=== PATIENT | male | born 1955 | race Caucasian/White ===

== ENCOUNTER 2017-10-29 09:02 | Inpatient (IN) | payer OTHER ==
[2017-10-29] MEDS: HYDROmorphONE 1 MG/ML SYG IV (09:14)
[2017-10-29] MEDS: PIPER-TAZO 3.375 GM IV (PMX) 50 ML IVPB (09:14)
[2017-10-29] MEDS: SOD CHLORIDE 0.9% 1,000 ML IV ×6 (09:14→19:38)
[2017-10-29] MEDS: VANCOMYCIN 1 GM (PMX) 250 ML IVPB (09:14)
[2017-10-29 10:08] LABS: ABNORMAL IP MESSAGE 1; HEMATOCRIT 43.9 % (42.0-52.0); HEMOGLOBIN 15.2 g/dl (14.0-18.0); MEAN CORPUSCULAR HEMOGLOBIN 30.6 pg (29.0-33.0); MEAN CORPUSCULAR HGB CONC 34.6 g/dl (32.0-37.0); MEAN CORPUSCULAR VOLUME 88.3 fl (82.0-101.0); MEAN PLATELET VOLUME 9.4 fl (7.4-10.4); PLATELET COUNT 274 10^3/UL (140-415); POSITIVE DIFF @See below; RED BLOOD COUNT 4.97 10^6/ul (4.70-6.10); RED CELL DISTRIBUTION WIDTH 12.8 % (11.5-14.5)
[2017-10-29] MEDS: HYDROmorphONE 1 MG/ML SYG IM (10:09)
[2017-10-29 10:11] LABS: ADD MAN DIFF? YES
[2017-10-29 10:25] LABS: INR 1.07; PROTIME 13.9 Sec (12.2-14.2); PT RATIO 1.1
[2017-10-29 10:26] LABS: ALANINE AMINOTRANSFERASE 37 IU/L (13-69); ALBUMIN 3.3 g/dl (3.3-4.9); ALBUMIN/GLOBULIN RATIO 0.89; ALKALINE PHOSPHATASE 129 IU/L (42-121); ANION GAP 18 (8-16); ASPARTATE AMINO TRANSFERASE 23 IU/L (15-46); BILIRUBIN,INDIRECT 0.1 mg/dl (0-1.1); BILIRUBIN,TOTAL 0.1 mg/dl (0.2-1.3); BLOOD UREA NITROGEN 40 mg/dl (7-20); CALCIUM 8.8 mg/dl (8.4-10.2); CARBON DIOXIDE 27 mmol/L (21-31); CHLORIDE 87 mmol/L (97-110); CREATININE 2.29 mg/dl (0.61-1.24); GLUCOSE 172 mg/dl (70-220); LIPASE 38 U/L (23-300); POTASSIUM 3.2 mmol/L (3.5-5.1); SODIUM 129 mmol/L (135-144)
[2017-10-29] MEDS ORDERED: ACETAMINOPHEN 325 MG TAB PO (10:30)
[2017-10-29] MEDS ORDERED: ONDANSETRON 4 MG INJ IV (10:30)
[2017-10-29 10:38] LABS: TROPONIN-I < 0.012 ng/ml (0.00-0.12)
[2017-10-29 10:46] LABS: LACTIC ACID 2.6 mmol/L (0.5-2.0)
[2017-10-29 11:10] LABS: BAND NEUTROPHILS % (M) 10 % (0-4); BURR CELLS 1+ (0-0); GIANT THROMBO% (M) 1 % (0-0); LYMPHOCYTES #M 0.3 10^3/ul (0.8-2.9); LYMPHOCYTES % (M) 1 % (15-51); MONOCYTE #M 1.5 10^3/ul (0.3-0.9); MONOCYTES % (M) 5 % (0-11); PLATELET ESTIMATE NORMAL; POIKILOCYTOSIS 2+ (0-0); POLYCHROMASIA 1+ (0-0); SEG NEUT #M 26.1 10^3/ul (1.7-7.5); SEGMENTED NEUTROPHILS (M) % 84 % (39-77)
[2017-10-29] MEDS: CLINDAMYCIN 900 MG/D5W (PMX) 50 ML IVPB (12:20)
[2017-10-29] MEDS ORDERED: ACETAMINOPHEN 650 MG SUPP PR (12:30)
[2017-10-29] MEDS ORDERED: DOCUSATE SODIUM 100 MG CAP PO (12:30)
[2017-10-29] MEDS ORDERED: BISACODYL (EC) 5 MG TAB PO (12:30)
[2017-10-29] MEDS ORDERED: VANCOMYCIN IV PER PHARMACY XX (12:30)
[2017-10-29] MEDS ORDERED: NACL 0.9% 3 ML SYG IV (12:30)
[2017-10-29] MEDS ORDERED: MAGNESIUM HYDROXIDE 30ML CUP PO (12:30)
[2017-10-29 12:58] LABS: LACTIC ACID 2.7 mmol/L (0.5-2.0)
[2017-10-29 13:21] LABS: HEMOGLOBIN A1C 5.6 % (0-5.9)
[2017-10-29] MEDS: ONDANSETRON 4 MG INJ IV (13:33)
[2017-10-29] MEDS: POTASSIUM CHLORIDE (SR) 20 MEQ TAB PO (13:34)
[2017-10-29] MEDS: VANCOMYCIN 2 GM in SOD CHLORIDE 0.9% 500 ML IVPB (13:34)
[2017-10-29] MEDS: morphine 2 MG INJ IV ×2 (13:46→23:01)
[2017-10-29] MEDS: LORAZEPAM 2 MG INJ IV (14:47)
[2017-10-29 15:12] LABS: LACTIC ACID 2.3 mmol/L (0.5-2.0)
[2017-10-29] MEDS: PIPER-TAZO 3.375 GM IV (PMX) 50 ML IV ×2 (18:20→23:37)
[2017-10-30 01:32] LABS: ADD UMIC YES; UR ASCORBIC ACID NEGATIVE (NEGATIVE); UR BILIRUBIN (Dip) NEGATIVE (NEGATIVE); UR BLOOD (Dip) 1+ mg/dL (NEGATIVE); UR CLARITY CLEAR (CLEAR); UR COLOR YELLOW (YELLOW); UR GLUCOSE (Dip) NEGATIVE (NEGATIVE); UR KETONES (Dip) NEGATIVE (NEGATIVE); UR LEUKOCYTE ESTERASE (Dip) NEGATIVE Leu/ul (NEGATIVE); UR MUCUS FEW /HPF (NONE SEEN); UR NITRITE (Dip) NEGATIVE (NEGATIVE); UR RBC 6 /HPF (0-5); UR SPECIFIC GRAVITY (Dip) 1.009 (1.003-1.030); UR TOTAL PROTEIN (Dip) 1+ mg/dl (NEGATIVE); UR UROBILINOGEN (Dip) NEGATIVE (NEGATIVE); UR WBC 2 /HPF (0-5)
[2017-10-30 03:00] LABS: SODIUM,URINE RANDOM 40 mmol/L (30-90)
[2017-10-30 03:02] LABS: CREATININE,URINE RANDOM 33.44 mg/dl (20-370); PROTEIN/CREAT RATIO 1.85 RATIO
[2017-10-30 03:04] LABS: CREATININE,URINE RANDOM 33.12 mg/dl (20-370)
[2017-10-30] MEDS: SOD CHLORIDE 0.9% 1,000 ML IV ×3 (04:45→16:23)
[2017-10-30] MEDS: PIPER-TAZO 3.375 GM IV (PMX) 50 ML IV ×4 (05:52→23:20)
[2017-10-30] MEDS: PANTOPRAZOLE 40 MG INJ IV (05:52)
[2017-10-30] MEDS: morphine 2 MG INJ IV (05:53)
[2017-10-30 07:33] LABS: ABNORMAL IP MESSAGE 1; HEMATOCRIT 38.6 % (42.0-52.0); HEMOGLOBIN 13.5 g/dl (14.0-18.0); MEAN CORPUSCULAR HEMOGLOBIN 30.9 pg (29.0-33.0); MEAN CORPUSCULAR VOLUME 88.3 fl (82.0-101.0); MEAN PLATELET VOLUME 9.4 fl (7.4-10.4); PLATELET COUNT 261 10^3/UL (140-415); POSITIVE DIFF @See below; RED BLOOD COUNT 4.37 10^6/ul (4.70-6.10); RED CELL DISTRIBUTION WIDTH 12.8 % (11.5-14.5)
[2017-10-30 07:33] LABS: WHITE BLOOD COUNT 33.2 10^3/ul (4.8-10.8)
[2017-10-30 07:42] LABS: ADD MAN DIFF? YES
[2017-10-30 08:05] LABS: ALANINE AMINOTRANSFERASE 33 IU/L (13-69); ALBUMIN 2.5 g/dl (3.3-4.9); ALBUMIN/GLOBULIN RATIO 0.69; ALKALINE PHOSPHATASE 139 IU/L (42-121); ANION GAP 11 (8-16); ASPARTATE AMINO TRANSFERASE 20 IU/L (15-46); BILIRUBIN,INDIRECT 0.2 mg/dl (0-1.1); BILIRUBIN,TOTAL 0.2 mg/dl (0.2-1.3); BLOOD UREA NITROGEN 23 mg/dl (7-20); CALCIUM 8.4 mg/dl (8.4-10.2); CARBON DIOXIDE 30 mmol/L (21-31); CHLORIDE 94 mmol/L (97-110); GLUCOSE 91 mg/dl (70-220); POTASSIUM 3.2 mmol/L (3.5-5.1); SODIUM 132 mmol/L (135-144); TOTAL PROTEIN 6.1 g/dl (6.1-8.1)
[2017-10-30] MEDS: ENOXAPARIN 40 MG/0.4 ML SYG SC (08:57)
[2017-10-30 09:24] LABS: ANISOCYTOSIS 1+ (0-0); BAND NEUTROPHILS #M 11.6 10^3/ul (0.0-0.6); BAND NEUTROPHILS % (M) 35 % (0-4); BURR CELLS 1+ (0-0); HYPOCHROMASIA 1+ (0-0); LYMPHOCYTES #M 0.3 10^3/ul (0.8-2.9); LYMPHOCYTES % (M) 1 % (15-51); METAMYELOCYTES #M 0.6 10^3/ul (0.0-0.0); METAMYELOCYTES %M 2 % (0-0); MONOCYTE #M 1.6 10^3/ul (0.3-0.9); MONOCYTES % (M) 5 % (0-11); MYELOCYTES #M 0.3 10^3/ul (0.0-0.0); MYELOCYTES % (M) 1 % (0-0); PLATELET ESTIMATE NORMAL; POIKILOCYTOSIS 1+ (0-0); POLYCHROMASIA 1+ (0-0); SEG NEUT #M 22.8 10^3/ul (1.7-7.5); SEGMENTED NEUTROPHILS (M) % 57 % (39-77); SMUDGE%M 8 % (0-0)
[2017-10-30] MEDS: POTASSIUM CHLORIDE (SR) 20 MEQ TAB PO (11:33)
[2017-10-30] MEDS: VANCOMYCIN 750 MG in DEXTROSE 5% 150 ML IVPB (13:03)
[2017-10-30] MEDS: NICOTINE (21 MG/24 HR) PATCH TRANSDERM (13:45)
[2017-10-30] MEDS: CLINDAMYCIN 900 MG/D5W (PMX) 50 ML IVPB ×2 (16:20→21:21)
[2017-10-30] MEDS ORDERED: POTASSIUM CHLORIDE (SR) 10 MEQ TAB PO (17:00)
[2017-10-30] MEDS ORDERED: VANCOMYCIN 1 GM in NS 250 ML IVPB (21:00)
[2017-10-31] MEDS: VANCOMYCIN 750 MG in DEXTROSE 5% 150 ML IVPB ×2 (00:48→12:56)
[2017-10-31] MEDS: SOD CHLORIDE 0.9% 1,000 ML IV ×3 (04:02→21:21)
[2017-10-31] MEDS: PANTOPRAZOLE (EC) 40 MG TAB PO (05:10)
[2017-10-31] MEDS: PIPER-TAZO 3.375 GM IV (PMX) 50 ML IV ×3 (05:10→18:38)
[2017-10-31] MEDS: CLINDAMYCIN 900 MG/D5W (PMX) 50 ML IVPB ×3 (06:15→21:21)
[2017-10-31 06:34] LABS: ALANINE AMINOTRANSFERASE 32 IU/L (13-69); ALBUMIN 2.3 g/dl (3.3-4.9); ALBUMIN/GLOBULIN RATIO 0.67; ALKALINE PHOSPHATASE 138 IU/L (42-121); ANION GAP 10 (8-16); ASPARTATE AMINO TRANSFERASE 18 IU/L (15-46); BILIRUBIN,INDIRECT 0.1 mg/dl (0-1.1); BILIRUBIN,TOTAL 0.1 mg/dl (0.2-1.3); BLOOD UREA NITROGEN 20 mg/dl (7-20); CALCIUM 8.2 mg/dl (8.4-10.2); CARBON DIOXIDE 30 mmol/L (21-31); CHLORIDE 98 mmol/L (97-110); CREATININE 0.97 mg/dl (0.61-1.24); GLUCOSE 120 mg/dl (70-220); SODIUM 135 mmol/L (135-144); TOTAL PROTEIN 5.7 g/dl (6.1-8.1)
[2017-10-31 06:36] LABS: ABNORMAL IP MESSAGE 1; HEMATOCRIT 35.3 % (42.0-52.0); MEAN CORPUSCULAR VOLUME 88.3 fl (82.0-101.0); MEAN PLATELET VOLUME 9.2 fl (7.4-10.4); PLATELET COUNT 290 10^3/UL (140-415); POSITIVE DIFF @See below; RED CELL DISTRIBUTION WIDTH 13.2 % (11.5-14.5)
[2017-10-31 06:41] LABS: POTASSIUM 2.8 mmol/L (3.5-5.1)
[2017-10-31 06:46] LABS: ADD MAN DIFF? YES
[2017-10-31 07:04] LABS: CREATININE 0.97 mg/dl (0.61-1.24)
[2017-10-31 07:04] LABS: BLOOD UREA NITROGEN 20 mg/dl (7-20)
[2017-10-31] MEDS: POTASSIUM CHLORIDE (SR) 20 MEQ TAB PO (07:08)
[2017-10-31 08:16] LABS: ANISOCYTOSIS 1+ (0-0); BAND NEUTROPHILS #M 5.4 10^3/ul (0.0-0.6); BAND NEUTROPHILS % (M) 15 % (0-4); BURR CELLS 2+ (0-0); GIANT THROMBO% (M) 1 % (0-0); LYMPHOCYTES % (M) 3 % (15-51); MONOCYTE #M 1.4 10^3/ul (0.3-0.9); MONOCYTES % (M) 4 % (0-11); PLATELET ESTIMATE NORMAL; POIKILOCYTOSIS 2+ (0-0); POLYCHROMASIA 1+ (0-0); SEGMENTED NEUTROPHILS (M) % 78 % (39-77); SMUDGE%M 1 % (0-0)
[2017-10-31] MEDS: NICOTINE (21 MG/24 HR) PATCH TRANSDERM (08:50)
[2017-10-31] MEDS: ENOXAPARIN 40 MG/0.4 ML SYG SC (08:52)
[2017-11-01 00:16] LABS: VANCOMYCIN,TROUGH 7.1 ug/ml (10.0-20.0)
[2017-11-01] MEDS: VANCOMYCIN 1.25 GM in SOD CHLORIDE 0.9% 250 ML IVPB ×2 (01:48→13:05)
[2017-11-01] MEDS: SOD CHLORIDE 0.9% 1,000 ML IV ×3 (03:42→20:02)
[2017-11-01] MEDS: PIPER-TAZO 3.375 GM IV (PMX) 50 ML IV ×4 (05:10→17:57)
[2017-11-01] MEDS: PANTOPRAZOLE (EC) 40 MG TAB PO (05:10)
[2017-11-01 06:16] LABS: ABNORMAL IP MESSAGE 1; HEMATOCRIT 36.7 % (42.0-52.0); HEMOGLOBIN 12.6 g/dl (14.0-18.0); MEAN CORPUSCULAR HEMOGLOBIN 29.8 pg (29.0-33.0); MEAN CORPUSCULAR HGB CONC 34.3 g/dl (32.0-37.0); MEAN CORPUSCULAR VOLUME 86.8 fl (82.0-101.0); PLATELET COUNT 337 10^3/UL (140-415); POSITIVE DIFF @See below; RED BLOOD COUNT 4.23 10^6/ul (4.70-6.10); RED CELL DISTRIBUTION WIDTH 13.3 % (11.5-14.5)
[2017-11-01 06:16] LABS: WHITE BLOOD COUNT 37.9 10^3/ul (4.8-10.8)
[2017-11-01] MEDS: CLINDAMYCIN 900 MG/D5W (PMX) 50 ML IVPB ×3 (06:21→22:56)
[2017-11-01 06:27] LABS: ADD MAN DIFF? YES
[2017-11-01 06:50] LABS: ANION GAP 10 (8-16); BLOOD UREA NITROGEN 15 mg/dl (7-20); CALCIUM 7.7 mg/dl (8.4-10.2); CARBON DIOXIDE 28 mmol/L (21-31); CHLORIDE 99 mmol/L (97-110); CREATININE 0.98 mg/dl (0.61-1.24); GLUCOSE 134 mg/dl (70-220); POTASSIUM 3.1 mmol/L (3.5-5.1); SODIUM 134 mmol/L (135-144)
[2017-11-01 07:37] LABS: BAND NEUTROPHILS #M 2.2 10^3/ul (0.0-0.6); BAND NEUTROPHILS % (M) 6 % (0-4); EOSINOPHILS % (M) 1 % (0-7); LYMPHOCYTES #M 2.2 10^3/ul (0.8-2.9); LYMPHOCYTES % (M) 6 % (15-51); METAMYELOCYTES #M 0.7 10^3/ul (0.0-0.0); METAMYELOCYTES %M 2 % (0-0); MONOCYTE #M 0.3 10^3/ul (0.3-0.9); MONOCYTES % (M) 1 % (0-11); MYELOCYTES #M 0.3 10^3/ul (0.0-0.0); MYELOCYTES % (M) 1 % (0-0); PLATELET ESTIMATE NORMAL; POIKILOCYTOSIS 2+ (0-0); POLYCHROMASIA 3+ (0-0); PROMYELOCYTES #M 0.7 10^3/ul (0-0); PROMYELOCYTES % (M) 2 % (0-0); SEG NEUT #M 31.5 10^3/ul (1.7-7.5); SEGMENTED NEUTROPHILS (M) % 81 % (39-77); SMUDGE%M 2 % (0-0)
[2017-11-01] MEDS: NICOTINE (21 MG/24 HR) PATCH TRANSDERM (08:50)
[2017-11-01] MEDS: ENOXAPARIN 40 MG/0.4 ML SYG SC (08:57)
[2017-11-01] MEDS ORDERED: INFLUENZA VIRUS VACCINE 0.5 ML SYG IM* (12:00)
[2017-11-01] MEDS: IBUPROFEN 400 MG TAB PO (14:15)
[2017-11-01] MEDS: POTASSIUM CHLORIDE 250 ML IVPB (15:20)
[2017-11-02] MEDS: PIPER-TAZO 3.375 GM IV (PMX) 50 ML IV ×3 (00:16→11:39)
[2017-11-02] MEDS: VANCOMYCIN 1.25 GM in SOD CHLORIDE 0.9% 250 ML IVPB (01:42)
[2017-11-02] MEDS: SOD CHLORIDE 0.9% 1,000 ML IV ×3 (03:54→21:16)
[2017-11-02] MEDS: PANTOPRAZOLE (EC) 40 MG TAB PO (06:30)
[2017-11-02] MEDS: CLINDAMYCIN 900 MG/D5W (PMX) 50 ML IVPB ×3 (07:29→21:14)
[2017-11-02] MEDS: NICOTINE (21 MG/24 HR) PATCH TRANSDERM (08:24)
[2017-11-02] MEDS: ENOXAPARIN 40 MG/0.4 ML SYG SC (08:26)
[2017-11-02 13:25] LABS: WHITE BLOOD COUNT 37.5 10^3/ul (4.8-10.8)
[2017-11-02 13:25] LABS: ABNORMAL IP MESSAGE 1; HEMATOCRIT 33.8 % (42.0-52.0); HEMOGLOBIN 11.8 g/dl (14.0-18.0); MEAN CORPUSCULAR HEMOGLOBIN 30.3 pg (29.0-33.0); MEAN CORPUSCULAR HGB CONC 34.9 g/dl (32.0-37.0); MEAN CORPUSCULAR VOLUME 86.7 fl (82.0-101.0); MEAN PLATELET VOLUME 8.9 fl (7.4-10.4); PLATELET COUNT 401 10^3/UL (140-415); POSITIVE DIFF @See below; RED CELL DISTRIBUTION WIDTH 13.5 % (11.5-14.5)
[2017-11-02 13:28] LABS: ADD MAN DIFF? YES
[2017-11-02 13:38] LABS: ALANINE AMINOTRANSFERASE 58 IU/L (13-69); ALBUMIN 2.2 g/dl (3.3-4.9); ALBUMIN/GLOBULIN RATIO 0.55; ALKALINE PHOSPHATASE 417 IU/L (42-121); ANION GAP 10 (8-16); ASPARTATE AMINO TRANSFERASE 85 IU/L (15-46); BILIRUBIN,INDIRECT 0.5 mg/dl (0-1.1); BILIRUBIN,TOTAL 1.9 mg/dl (0.2-1.3); BLOOD UREA NITROGEN 14 mg/dl (7-20); CALCIUM 7.5 mg/dl (8.4-10.2); CARBON DIOXIDE 26 mmol/L (21-31); CHLORIDE 99 mmol/L (97-110); CREATININE 0.94 mg/dl (0.61-1.24); GLUCOSE 127 mg/dl (70-220); SODIUM 132 mmol/L (135-144); TOTAL PROTEIN 6.2 g/dl (6.1-8.1)
[2017-11-02 13:42] LABS: VANCOMYCIN,TROUGH 11.5 ug/ml (10.0-20.0)
[2017-11-02 14:04] LABS: ANISOCYTOSIS 1+ (0-0); BAND NEUTROPHILS % (M) 16 % (0-4); BURR CELLS 1+ (0-0); LYMPHOCYTES #M 1.8 10^3/ul (0.8-2.9); LYMPHOCYTES % (M) 5 % (15-51); METAMYELOCYTES #M 1.5 10^3/ul (0.0-0.0); METAMYELOCYTES %M 4 % (0-0); MONOCYTE #M 1.8 10^3/ul (0.3-0.9); MONOCYTES % (M) 5 % (0-11); MYELOCYTES #M 0.7 10^3/ul (0.0-0.0); MYELOCYTES % (M) 2 % (0-0); PLATELET ESTIMATE NORMAL; POIKILOCYTOSIS 1+ (0-0); POLYCHROMASIA 1+ (0-0); SEG NEUT #M 27.8 10^3/ul (1.7-7.5); SEGMENTED NEUTROPHILS (M) % 68 % (39-77); SMUDGE%M 4 % (0-0)
[2017-11-02] MEDS: POTASSIUM CHLORIDE 20 MEQ POWDER FOR ORAL SOLN PO (14:33)
[2017-11-03] MEDS: SOD CHLORIDE 0.9% 1,000 ML IV ×3 (03:26→20:43)
[2017-11-03] MEDS: PANTOPRAZOLE (EC) 40 MG TAB PO (05:28)
[2017-11-03] MEDS: CLINDAMYCIN 900 MG/D5W (PMX) 50 ML IVPB ×3 (05:28→22:00)
[2017-11-03 06:08] LABS: ABNORMAL IP MESSAGE 1; HEMATOCRIT 32.2 % (42.0-52.0); HEMOGLOBIN 11.1 g/dl (14.0-18.0); MEAN CORPUSCULAR HEMOGLOBIN 30.2 pg (29.0-33.0); MEAN CORPUSCULAR HGB CONC 34.5 g/dl (32.0-37.0); MEAN CORPUSCULAR VOLUME 87.5 fl (82.0-101.0); MEAN PLATELET VOLUME 8.8 fl (7.4-10.4); PLATELET COUNT 418 10^3/UL (140-415); POSITIVE DIFF @See below; RED BLOOD COUNT 3.68 10^6/ul (4.70-6.10); RED CELL DISTRIBUTION WIDTH 13.4 % (11.5-14.5)
[2017-11-03 06:08] LABS: WHITE BLOOD COUNT 34.1 10^3/ul (4.8-10.8)
[2017-11-03 06:11] LABS: ADD MAN DIFF? YES
[2017-11-03] MEDS: NICOTINE (21 MG/24 HR) PATCH TRANSDERM (08:44)
[2017-11-03] MEDS: ENOXAPARIN 40 MG/0.4 ML SYG SC (08:47)
[2017-11-03 08:51] LABS: BAND NEUTROPHILS % (M) 6 % (0-4); LYMPHOCYTES #M 0.6 10^3/ul (0.8-2.9); LYMPHOCYTES % (M) 2 % (15-51); METAMYELOCYTES %M 3 % (0-0); MONOCYTE #M 1.7 10^3/ul (0.3-0.9); MONOCYTES % (M) 5 % (0-11); MYELOCYTES #M 0.6 10^3/ul (0.0-0.0); MYELOCYTES % (M) 2 % (0-0); PLATELET ESTIMATE INCREASED; POLYCHROMASIA 1+ (0-0); PROMYELOCYTES #M 0.3 10^3/ul (0-0); PROMYELOCYTES % (M) 1 % (0-0); SEG NEUT #M 28.3 10^3/ul (1.7-7.5); SEGMENTED NEUTROPHILS (M) % 81 % (39-77); SMUDGE%M 2 % (0-0)
[2017-11-03] MEDS: IBUPROFEN 400 MG TAB PO ×2 (08:52→22:19)
[2017-11-03] MEDS: morphine 2 MG INJ IV ×4 (11:21→23:06)
[2017-11-04] MEDS: morphine 2 MG INJ IV ×6 (03:50→21:49)
[2017-11-04] MEDS: SOD CHLORIDE 0.9% 1,000 ML IV ×2 (03:50→12:45)
[2017-11-04 06:00] LABS: WHITE BLOOD COUNT 28.5 10^3/ul (4.8-10.8)
[2017-11-04 06:00] LABS: ABNORMAL IP MESSAGE 1; HEMATOCRIT 37.2 % (42.0-52.0); HEMOGLOBIN 12.7 g/dl (14.0-18.0); MEAN CORPUSCULAR HEMOGLOBIN 29.8 pg (29.0-33.0); MEAN CORPUSCULAR HGB CONC 34.1 g/dl (32.0-37.0); MEAN CORPUSCULAR VOLUME 87.3 fl (82.0-101.0); MEAN PLATELET VOLUME 8.6 fl (7.4-10.4); PLATELET COUNT 492 10^3/UL (140-415); POSITIVE DIFF @See below; RED BLOOD COUNT 4.26 10^6/ul (4.70-6.10); RED CELL DISTRIBUTION WIDTH 13.5 % (11.5-14.5)
[2017-11-04] MEDS: PANTOPRAZOLE (EC) 40 MG TAB PO (06:23)
[2017-11-04] MEDS: CLINDAMYCIN 900 MG/D5W (PMX) 50 ML IVPB ×3 (06:24→23:52)
[2017-11-04 06:44] LABS: ALANINE AMINOTRANSFERASE 41 IU/L (13-69); ALBUMIN 2.3 g/dl (3.3-4.9); ALBUMIN/GLOBULIN RATIO 0.53; ALKALINE PHOSPHATASE 343 IU/L (42-121); ANION GAP 10 (8-16); ASPARTATE AMINO TRANSFERASE 29 IU/L (15-46); BILIRUBIN,INDIRECT 0.4 mg/dl (0-1.1); BILIRUBIN,TOTAL 0.4 mg/dl (0.2-1.3); BLOOD UREA NITROGEN 17 mg/dl (7-20); CALCIUM 7.7 mg/dl (8.4-10.2); CARBON DIOXIDE 26 mmol/L (21-31); CHLORIDE 102 mmol/L (97-110); CREATININE 1.13 mg/dl (0.61-1.24); GLUCOSE 108 mg/dl (70-220); POTASSIUM 3.6 mmol/L (3.5-5.1); SODIUM 134 mmol/L (135-144); TOTAL PROTEIN 6.6 g/dl (6.1-8.1)
[2017-11-04 06:49] LABS: ADD MAN DIFF? YES
[2017-11-04 09:37] LABS: BAND NEUTROPHILS #M 1.1 10^3/ul (0.0-0.6); BAND NEUTROPHILS % (M) 4 % (0-4); LYMPHOCYTES #M 0.5 10^3/ul (0.8-2.9); LYMPHOCYTES % (M) 2 % (15-51); MONOCYTE #M 3.1 10^3/ul (0.3-0.9); MONOCYTES % (M) 11 % (0-11); MYELOCYTES #M 1.1 10^3/ul (0.0-0.0); MYELOCYTES % (M) 4 % (0-0); PLATELET ESTIMATE NORMAL; POIKILOCYTOSIS 1+ (0-0); POLYCHROMASIA 1+ (0-0); REACTIVE LYMPHOCYTES #M 0.5 10^3/ul (0.0-0.0); REACTIVE LYMPHOCYTES% (M) 2 % (0-0); SEG NEUT #M 22.3 10^3/ul (1.7-7.5); SEGMENTED NEUTROPHILS (M) % 77 % (39-77); SMUDGE%M 3 % (0-0)
[2017-11-04] MEDS: NICOTINE (21 MG/24 HR) PATCH TRANSDERM (10:48)
[2017-11-04] MEDS: ENOXAPARIN 40 MG/0.4 ML SYG SC (11:01)
[2017-11-04] MEDS: IBUPROFEN 400 MG TAB PO ×2 (15:17→21:49)
[2017-11-04 21:55] LABS: HEMOGLOBIN A1C 5.6 % (0-5.9)
[2017-11-05] MEDS: SOD CHLORIDE 0.9% 1,000 ML IV ×6 (00:55→20:45)
[2017-11-05] MEDS: IBUPROFEN 400 MG TAB PO ×2 (04:01→10:40)
[2017-11-05] MEDS: morphine 2 MG INJ IV (04:02)
[2017-11-05] MEDS: PANTOPRAZOLE (EC) 40 MG TAB PO (05:53)
[2017-11-05] MEDS: CLINDAMYCIN 900 MG/D5W (PMX) 50 ML IVPB ×3 (05:53→21:38)
[2017-11-05 06:19] LABS: ADD MAN DIFF? NO
[2017-11-05 06:24] LABS: ABNORMAL IP MESSAGE 1; BASOPHIL # 0.1 10^3/ul (0.0-0.1); BASOPHILS % 0.5 % (0.0-2.0); EOSINOPHILS # 0.4 10^3/ul (0.0-0.5); EOSINOPHILS % 1.5 % (0.0-7.0); HEMATOCRIT 31.5 % (42.0-52.0); HEMOGLOBIN 10.9 g/dl (14.0-18.0); LYMPHOCYTES # 1.4 10^3/ul (0.8-2.9); MEAN CORPUSCULAR HEMOGLOBIN 30.4 pg (29.0-33.0); MEAN CORPUSCULAR HGB CONC 34.6 g/dl (32.0-37.0); MEAN PLATELET VOLUME 8.4 fl (7.4-10.4); MONOCYTE # 1.5 10^3/ul (0.3-0.9); MONOCYTES % 6.6 % (0.0-11.0); NEUTROPHIL # 18.1 10^3/ul (1.6-7.5); NEUTROPHILS % 78.1 % (39.0-77.0); PLATELET COUNT 495 10^3/UL (140-415); POSITIVE DIFF @See below; RED BLOOD COUNT 3.58 10^6/ul (4.70-6.10); RED CELL DISTRIBUTION WIDTH 13.8 % (11.5-14.5)
[2017-11-05 06:24] LABS: WHITE BLOOD COUNT 23.2 10^3/ul (4.8-10.8)
[2017-11-05] MEDS: NICOTINE (21 MG/24 HR) PATCH TRANSDERM (08:42)
[2017-11-05] MEDS: ENOXAPARIN 40 MG/0.4 ML SYG SC (09:09)
[2017-11-05 10:30] LABS: BAND NEUTROPHILS #M 0.6 10^3/ul (0.0-0.6); BAND NEUTROPHILS % (M) 3 % (0-4); EOSINOPHILS % (M) 2 % (0-7); LYMPHOCYTES #M 0.6 10^3/ul (0.8-2.9); LYMPHOCYTES % (M) 3 % (15-51); METAMYELOCYTES #M 0.2 10^3/ul (0.0-0.0); METAMYELOCYTES %M 1 % (0-0); MYELOCYTES #M 0.2 10^3/ul (0.0-0.0); MYELOCYTES % (M) 1 % (0-0); PLATELET ESTIMATE INCREASED; POLYCHROMASIA 1+ (0-0); SEGMENTED NEUTROPHILS (M) % 90 % (39-77); SMUDGE%M 4 % (0-0)
[2017-11-06] MEDS: CARISOPRODOL 350 MG TAB PO ×2 (03:38→14:01)
[2017-11-06] MEDS: SOD CHLORIDE 0.9% 1,000 ML IV ×5 (04:02→22:25)
[2017-11-06] MEDS: CLINDAMYCIN 900 MG/D5W (PMX) 50 ML IVPB ×3 (05:41→22:25)
[2017-11-06] MEDS: PANTOPRAZOLE (EC) 40 MG TAB PO (05:41)
[2017-11-06] MEDS: morphine 2 MG INJ IV ×3 (05:49→19:42)
[2017-11-06 06:12] LABS: ADD MAN DIFF? NO
[2017-11-06 06:16] LABS: BASOPHIL # 0.1 10^3/ul (0.0-0.1); BASOPHILS % 0.3 % (0.0-2.0); EOSINOPHILS # 0.2 10^3/ul (0.0-0.5); HEMATOCRIT 30.7 % (42.0-52.0); HEMOGLOBIN 10.6 g/dl (14.0-18.0); LYMPHOCYTES # 1.2 10^3/ul (0.8-2.9); LYMPHOCYTES % 5.4 % (15.0-51.0); MEAN CORPUSCULAR HGB CONC 34.5 g/dl (32.0-37.0); MEAN PLATELET VOLUME 8.6 fl (7.4-10.4); MONOCYTE # 1.4 10^3/ul (0.3-0.9); MONOCYTES % 6.2 % (0.0-11.0); NEUTROPHIL # 19.2 10^3/ul (1.6-7.5); NEUTROPHILS % 83.5 % (39.0-77.0); PLATELET COUNT 562 10^3/UL (140-415); RED BLOOD COUNT 3.53 10^6/ul (4.70-6.10); RED CELL DISTRIBUTION WIDTH 14.1 % (11.5-14.5)
[2017-11-06 06:42] LABS: ANION GAP 10 (8-16); BLOOD UREA NITROGEN 24 mg/dl (7-20); CALCIUM 7.4 mg/dl (8.4-10.2); CARBON DIOXIDE 23 mmol/L (21-31); CHLORIDE 105 mmol/L (97-110); CREATININE 1.69 mg/dl (0.61-1.24); GLUCOSE 112 mg/dl (70-220); POTASSIUM 4.2 mmol/L (3.5-5.1); SODIUM 134 mmol/L (135-144)
[2017-11-06] MEDS: NICOTINE (21 MG/24 HR) PATCH TRANSDERM (09:21)
[2017-11-06] MEDS: ENOXAPARIN 40 MG/0.4 ML SYG SC (09:26)
[2017-11-07] MEDS: morphine 2 MG INJ IV ×3 (03:40→20:18)
[2017-11-07] MEDS: CARISOPRODOL 350 MG TAB PO ×2 (03:40→15:41)
[2017-11-07] MEDS: CLINDAMYCIN 900 MG/D5W (PMX) 50 ML IVPB ×3 (04:57→21:32)
[2017-11-07] MEDS: PANTOPRAZOLE (EC) 40 MG TAB PO (04:58)
[2017-11-07 05:55] LABS: ADD MAN DIFF? NO
[2017-11-07] MEDS: SOD CHLORIDE 0.9% 1,000 ML IV ×4 (06:04→20:02)
[2017-11-07 06:16] LABS: WHITE BLOOD COUNT 25.9 10^3/ul (4.8-10.8)
[2017-11-07 06:16] LABS: ABNORMAL IP MESSAGE 1; BASOPHIL # 0.1 10^3/ul (0.0-0.1); BASOPHILS % 0.3 % (0.0-2.0); EOSINOPHILS # 0.2 10^3/ul (0.0-0.5); EOSINOPHILS % 0.6 % (0.0-7.0); HEMATOCRIT 32.8 % (42.0-52.0); HEMOGLOBIN 11.2 g/dl (14.0-18.0); LYMPHOCYTES # 1.3 10^3/ul (0.8-2.9); MEAN CORPUSCULAR HEMOGLOBIN 30.1 pg (29.0-33.0); MEAN CORPUSCULAR HGB CONC 34.1 g/dl (32.0-37.0); MEAN CORPUSCULAR VOLUME 88.2 fl (82.0-101.0); MEAN PLATELET VOLUME 8.6 fl (7.4-10.4); MONOCYTE # 1.3 10^3/ul (0.3-0.9); MONOCYTES % 5.1 % (0.0-11.0); NEUTROPHIL # 22.4 10^3/ul (1.6-7.5); NEUTROPHILS % 86.7 % (39.0-77.0); PLATELET COUNT 650 10^3/UL (140-415); POSITIVE DIFF @See below; RED BLOOD COUNT 3.72 10^6/ul (4.70-6.10); RED CELL DISTRIBUTION WIDTH 14.3 % (11.5-14.5)
[2017-11-07 06:53] LABS: ALANINE AMINOTRANSFERASE 34 IU/L (13-69); ALBUMIN 2.4 g/dl (3.3-4.9); ALKALINE PHOSPHATASE 530 IU/L (42-121); ANION GAP 14 (8-16); ASPARTATE AMINO TRANSFERASE 34 IU/L (15-46); BILIRUBIN,INDIRECT 0.4 mg/dl (0-1.1); BILIRUBIN,TOTAL 0.4 mg/dl (0.2-1.3); BLOOD UREA NITROGEN 29 mg/dl (7-20); CARBON DIOXIDE 22 mmol/L (21-31); CHLORIDE 105 mmol/L (97-110); GLUCOSE 108 mg/dl (70-220); POTASSIUM 4.3 mmol/L (3.5-5.1); SODIUM 137 mmol/L (135-144); TOTAL PROTEIN 7.2 g/dl (6.1-8.1)
[2017-11-07] MEDS: NICOTINE (21 MG/24 HR) PATCH TRANSDERM (10:18)
[2017-11-07] MEDS: ENOXAPARIN 40 MG/0.4 ML SYG SC (10:24)
[2017-11-07 12:05] LABS: SODIUM,URINE RANDOM 59 mmol/L (30-90)
[2017-11-07 12:14] LABS: CREATININE,URINE RANDOM 66.87 mg/dl (20-370)
[2017-11-08] MEDS: SOD CHLORIDE 0.9% 1,000 ML IV ×4 (01:33→20:03)
[2017-11-08] MEDS: morphine 2 MG INJ IV ×3 (02:22→20:03)
[2017-11-08] MEDS: CLINDAMYCIN 900 MG/D5W (PMX) 50 ML IVPB ×3 (05:57→21:35)
[2017-11-08] MEDS: PANTOPRAZOLE (EC) 40 MG TAB PO (05:57)
[2017-11-08 06:04] LABS: ADD MAN DIFF? NO
[2017-11-08 06:20] LABS: BASOPHIL # 0.1 10^3/ul (0.0-0.1); BASOPHILS % 0.4 % (0.0-2.0); EOSINOPHILS # 0.1 10^3/ul (0.0-0.5); EOSINOPHILS % 0.6 % (0.0-7.0); HEMATOCRIT 28.9 % (42.0-52.0); HEMOGLOBIN 9.9 g/dl (14.0-18.0); LYMPHOCYTES # 1.2 10^3/ul (0.8-2.9); LYMPHOCYTES % 6.4 % (15.0-51.0); MEAN CORPUSCULAR HGB CONC 34.3 g/dl (32.0-37.0); MEAN CORPUSCULAR VOLUME 87.6 fl (82.0-101.0); MEAN PLATELET VOLUME 8.5 fl (7.4-10.4); MONOCYTE # 1.4 10^3/ul (0.3-0.9); MONOCYTES % 7.1 % (0.0-11.0); NEUTROPHIL # 16.1 10^3/ul (1.6-7.5); NEUTROPHILS % 84.6 % (39.0-77.0); PLATELET COUNT 658 10^3/UL (140-415); RED CELL DISTRIBUTION WIDTH 14.1 % (11.5-14.5)
[2017-11-08 06:52] LABS: ALANINE AMINOTRANSFERASE 40 IU/L (13-69); ALBUMIN 1.9 g/dl (3.3-4.9); ALKALINE PHOSPHATASE 757 IU/L (42-121); ANION GAP 9 (8-16); ASPARTATE AMINO TRANSFERASE 57 IU/L (15-46); BILIRUBIN,INDIRECT 0.2 mg/dl (0-1.1); BILIRUBIN,TOTAL 0.2 mg/dl (0.2-1.3); BLOOD UREA NITROGEN 30 mg/dl (7-20); CALCIUM 7.3 mg/dl (8.4-10.2); CARBON DIOXIDE 21 mmol/L (21-31); CHLORIDE 106 mmol/L (97-110); CREATININE 2.12 mg/dl (0.61-1.24); GLUCOSE 141 mg/dl (70-220); POTASSIUM 4.3 mmol/L (3.5-5.1); SODIUM 132 mmol/L (135-144); TOTAL PROTEIN 5.7 g/dl (6.1-8.1)
[2017-11-08] MEDS: NICOTINE (21 MG/24 HR) PATCH TRANSDERM (09:08)
[2017-11-08] MEDS: ENOXAPARIN 40 MG/0.4 ML SYG SC (09:50)
[2017-11-08] MEDS: CARISOPRODOL 350 MG TAB PO (16:06)
[2017-11-08] MEDS: COLLAGENASE 30 GM TUBE TOP (17:00)
[2017-11-08] MEDS: CALCIUM CARBONATE 1.25 GM TAB PO (21:33)
[2017-11-09] MEDS: morphine 2 MG INJ IV ×3 (02:22→17:18)
[2017-11-09] MEDS: CARISOPRODOL 350 MG TAB PO ×2 (03:32→19:30)
[2017-11-09] MEDS: SOD CHLORIDE 0.9% 1,000 ML IV (04:36)
[2017-11-09] MEDS: PANTOPRAZOLE (EC) 40 MG TAB PO (06:14)
[2017-11-09] MEDS: CLINDAMYCIN 900 MG/D5W (PMX) 50 ML IVPB ×3 (06:15→22:43)
[2017-11-09] MEDS: NICOTINE (14 MG/24 HR) PATCH TRANSDERM (08:47)
[2017-11-09] MEDS: CALCIUM CARBONATE 1.25 GM TAB PO ×3 (08:47→22:43)
[2017-11-09] MEDS: COLLAGENASE 30 GM TUBE TOP (08:50)
[2017-11-09] MEDS: ENOXAPARIN 40 MG/0.4 ML SYG SC (08:50)
[2017-11-09] MEDS: CEFTRIAXONE 1 GM/50 ML (PMX) 50 ML IVPB (17:18)
[2017-11-09] MEDS: HEPARIN 5,000 UNIT/0.5 ML VIAL SC (22:44)
[2017-11-10] MEDS: morphine 2 MG INJ IV ×4 (05:04→21:50)
[2017-11-10] MEDS: PANTOPRAZOLE (EC) 40 MG TAB PO (05:04)
[2017-11-10 05:50] LABS: ADD MAN DIFF? NO; HAAIG REFLEX REFLEX FILED
[2017-11-10 05:55] LABS: BASOPHIL # 0.1 10^3/ul (0.0-0.1); BASOPHILS % 0.7 % (0.0-2.0); EOSINOPHILS # 0.3 10^3/ul (0.0-0.5); EOSINOPHILS % 2.3 % (0.0-7.0); HEMATOCRIT 27.1 % (42.0-52.0); LYMPHOCYTES # 1.1 10^3/ul (0.8-2.9); LYMPHOCYTES % 8.4 % (15.0-51.0); MEAN CORPUSCULAR HEMOGLOBIN 30.2 pg (29.0-33.0); MEAN CORPUSCULAR HGB CONC 33.2 g/dl (32.0-37.0); MEAN CORPUSCULAR VOLUME 90.9 fl (82.0-101.0); MEAN PLATELET VOLUME 8.3 fl (7.4-10.4); MONOCYTES % 7.7 % (0.0-11.0); NEUTROPHIL # 10.5 10^3/ul (1.6-7.5); NEUTROPHILS % 80.1 % (39.0-77.0); PLATELET COUNT 659 10^3/UL (140-415); RED BLOOD COUNT 2.98 10^6/ul (4.70-6.10); RED CELL DISTRIBUTION WIDTH 14.7 % (11.5-14.5)
[2017-11-10 05:55] LABS: WHITE BLOOD COUNT 13.1 10^3/ul (4.8-10.8)
[2017-11-10] MEDS: CLINDAMYCIN 900 MG/D5W (PMX) 50 ML IVPB ×2 (05:57→13:23)
[2017-11-10 06:19] LABS: ANION GAP 10 (8-16); BLOOD UREA NITROGEN 32 mg/dl (7-20); CALCIUM 8.1 mg/dl (8.4-10.2); CARBON DIOXIDE 25 mmol/L (21-31); CHLORIDE 108 mmol/L (97-110); CREATININE 2.23 mg/dl (0.61-1.24); GLUCOSE 111 mg/dl (70-220); POTASSIUM 4.8 mmol/L (3.5-5.1); SODIUM 138 mmol/L (135-144)
[2017-11-10 06:42] LABS: HEPATITIS B SURFACE ANTIGEN NEGATIVE (NEGATIVE)
[2017-11-10 07:00] LABS: HEPATITIS B CORE ANTIBODY REACTIVE (NEGATIVE)
[2017-11-10 07:13] LABS: HEPATITIS C VIRAL ANTIBODY REACTIVE (NEGATIVE)
[2017-11-10] MEDS: COLLAGENASE 30 GM TUBE TOP (09:11)
[2017-11-10] MEDS: CALCIUM CARBONATE 1.25 GM TAB PO ×3 (09:11→21:51)
[2017-11-10] MEDS: NICOTINE (14 MG/24 HR) PATCH TRANSDERM (09:11)
[2017-11-10] MEDS: HEPARIN 5,000 UNIT/0.5 ML VIAL SC ×2 (09:20→22:00)
[2017-11-10] MEDS: CARISOPRODOL 350 MG TAB PO (13:23)
[2017-11-10] MEDS: CEFTRIAXONE 1 GM/50 ML (PMX) 50 ML IVPB (16:33)
[2017-11-11] MEDS: morphine 2 MG INJ IV ×5 (02:59→20:53)
[2017-11-11 05:44] LABS: ADD MAN DIFF? NO
[2017-11-11 05:59] LABS: WHITE BLOOD COUNT 14.5 10^3/ul (4.8-10.8)
[2017-11-11 05:59] LABS: BASOPHIL # 0.1 10^3/ul (0.0-0.1); BASOPHILS % 0.5 % (0.0-2.0); EOSINOPHILS # 0.1 10^3/ul (0.0-0.5); EOSINOPHILS % 0.6 % (0.0-7.0); HEMOGLOBIN 9.4 g/dl (14.0-18.0); LYMPHOCYTES # 1.1 10^3/ul (0.8-2.9); LYMPHOCYTES % 7.5 % (15.0-51.0); MEAN CORPUSCULAR HEMOGLOBIN 30.4 pg (29.0-33.0); MEAN CORPUSCULAR HGB CONC 33.6 g/dl (32.0-37.0); MEAN CORPUSCULAR VOLUME 90.6 fl (82.0-101.0); MEAN PLATELET VOLUME 8.3 fl (7.4-10.4); MONOCYTE # 0.9 10^3/ul (0.3-0.9); MONOCYTES % 6.5 % (0.0-11.0); NEUTROPHIL # 12.2 10^3/ul (1.6-7.5); NEUTROPHILS % 84.2 % (39.0-77.0); PLATELET COUNT 755 10^3/UL (140-415); RED BLOOD COUNT 3.09 10^6/ul (4.70-6.10); RED CELL DISTRIBUTION WIDTH 14.3 % (11.5-14.5)
[2017-11-11 06:22] LABS: ANION GAP 11 (8-16); BLOOD UREA NITROGEN 28 mg/dl (7-20); CALCIUM 8.1 mg/dl (8.4-10.2); CARBON DIOXIDE 24 mmol/L (21-31); CHLORIDE 106 mmol/L (97-110); CREATININE 1.96 mg/dl (0.61-1.24); GLUCOSE 122 mg/dl (70-220); POTASSIUM 4.7 mmol/L (3.5-5.1); SODIUM 136 mmol/L (135-144)
[2017-11-11] MEDS: COLLAGENASE 30 GM TUBE TOP (08:44)
[2017-11-11] MEDS: CALCIUM CARBONATE 1.25 GM TAB PO ×3 (08:44→20:53)
[2017-11-11] MEDS: NICOTINE (14 MG/24 HR) PATCH TRANSDERM (08:44)
[2017-11-11] MEDS: HEPARIN 5,000 UNIT/0.5 ML VIAL SC ×2 (09:03→20:58)
[2017-11-11 16:20] LABS: ADD UMIC YES; UR ASCORBIC ACID NEGATIVE (NEGATIVE); UR BILIRUBIN (Dip) NEGATIVE (NEGATIVE); UR BLOOD (Dip) 3+ mg/dL (NEGATIVE); UR CLARITY SLIGHTLY CLOUDY (CLEAR); UR COLOR YELLOW (YELLOW); UR GLUCOSE (Dip) NEGATIVE (NEGATIVE); UR KETONES (Dip) NEGATIVE (NEGATIVE); UR LEUKOCYTE ESTERASE (Dip) 3+ Leu/ul (NEGATIVE); UR NITRITE (Dip) NEGATIVE (NEGATIVE); UR RBC 61 /HPF (0-5); UR SPECIFIC GRAVITY (Dip) 1.009 (1.003-1.030); UR TOTAL PROTEIN (Dip) 1+ mg/dl (NEGATIVE); UR UROBILINOGEN (Dip) NEGATIVE (NEGATIVE); UR WBC 177 /HPF (0-5)
[2017-11-11] MEDS: CEFTRIAXONE 1 GM/50 ML (PMX) 50 ML IVPB (16:32)
[2017-11-11] MEDS: CARISOPRODOL 350 MG TAB PO (17:10)
[2017-11-12] MEDS: morphine 2 MG INJ IV ×4 (02:11→18:32)
[2017-11-12 05:46] LABS: ADD MAN DIFF? NO
[2017-11-12 06:02] LABS: BASOPHIL # 0.1 10^3/ul (0.0-0.1); BASOPHILS % 0.8 % (0.0-2.0); EOSINOPHILS # 0.1 10^3/ul (0.0-0.5); EOSINOPHILS % 0.5 % (0.0-7.0); HEMATOCRIT 31.6 % (42.0-52.0); HEMOGLOBIN 10.4 g/dl (14.0-18.0); LYMPHOCYTES # 1.8 10^3/ul (0.8-2.9); LYMPHOCYTES % 11.4 % (15.0-51.0); MEAN CORPUSCULAR HEMOGLOBIN 30.2 pg (29.0-33.0); MEAN CORPUSCULAR HGB CONC 32.9 g/dl (32.0-37.0); MEAN CORPUSCULAR VOLUME 91.9 fl (82.0-101.0); MEAN PLATELET VOLUME 8.3 fl (7.4-10.4); MONOCYTE # 1.2 10^3/ul (0.3-0.9); MONOCYTES % 7.6 % (0.0-11.0); NEUTROPHIL # 12.4 10^3/ul (1.6-7.5); NEUTROPHILS % 79.2 % (39.0-77.0); PLATELET COUNT 778 10^3/UL (140-415); RED BLOOD COUNT 3.44 10^6/ul (4.70-6.10); RED CELL DISTRIBUTION WIDTH 14.3 % (11.5-14.5)
[2017-11-12 06:02] LABS: WHITE BLOOD COUNT 15.7 10^3/ul (4.8-10.8)
[2017-11-12 06:30] LABS: ANION GAP 12 (8-16); BLOOD UREA NITROGEN 25 mg/dl (7-20); CALCIUM 8.7 mg/dl (8.4-10.2); CARBON DIOXIDE 26 mmol/L (21-31); CHLORIDE 105 mmol/L (97-110); CREATININE 1.89 mg/dl (0.61-1.24); GLUCOSE 109 mg/dl (70-220); POTASSIUM 4.8 mmol/L (3.5-5.1); SODIUM 138 mmol/L (135-144)
[2017-11-12 07:20] LABS: MAGNESIUM 1.8 mg/dl (1.7-2.5)
[2017-11-12 07:20] LABS: PHOSPHORUS 5.7 mg/dl (2.5-4.9)
[2017-11-12] MEDS: NICOTINE (14 MG/24 HR) PATCH TRANSDERM (09:14)
[2017-11-12] MEDS: COLLAGENASE 30 GM TUBE TOP (09:15)
[2017-11-12] MEDS: HEPARIN 5,000 UNIT/0.5 ML VIAL SC ×2 (09:30→21:02)
[2017-11-12] MEDS: CALCIUM CARBONATE 1.25 GM TAB PO ×3 (09:39→21:00)
[2017-11-12] MEDS: CEFTRIAXONE 1 GM/50 ML (PMX) 50 ML IVPB (18:18)
[2017-11-12] MEDS: CARISOPRODOL 350 MG TAB PO (21:08)
[2017-11-13] MEDS: morphine 2 MG INJ IV ×5 (02:02→20:46)
[2017-11-13] MEDS: CALCIUM CARBONATE 1.25 GM TAB PO ×3 (10:13→20:46)
[2017-11-13] MEDS: NICOTINE (14 MG/24 HR) PATCH TRANSDERM (10:14)
[2017-11-13] MEDS: COLLAGENASE 30 GM TUBE TOP (10:16)
[2017-11-13] MEDS: HEPARIN 5,000 UNIT/0.5 ML VIAL SC ×2 (10:16→21:00)
[2017-11-13 10:38] LABS: ADD MAN DIFF? NO
[2017-11-13 10:42] LABS: BASOPHIL # 0.1 10^3/ul (0.0-0.1); BASOPHILS % 1.1 % (0.0-2.0); EOSINOPHILS # 0.1 10^3/ul (0.0-0.5); EOSINOPHILS % 0.6 % (0.0-7.0); HEMATOCRIT 28.8 % (42.0-52.0); HEMOGLOBIN 9.5 g/dl (14.0-18.0); LYMPHOCYTES # 1.4 10^3/ul (0.8-2.9); LYMPHOCYTES % 12.1 % (15.0-51.0); MEAN CORPUSCULAR HEMOGLOBIN 30.2 pg (29.0-33.0); MEAN CORPUSCULAR VOLUME 91.4 fl (82.0-101.0); MEAN PLATELET VOLUME 8.3 fl (7.4-10.4); MONOCYTE # 0.7 10^3/ul (0.3-0.9); NEUTROPHIL # 9.3 10^3/ul (1.6-7.5); NEUTROPHILS % 79.7 % (39.0-77.0); RED BLOOD COUNT 3.15 10^6/ul (4.70-6.10); RED CELL DISTRIBUTION WIDTH 14.1 % (11.5-14.5)
[2017-11-13 10:42] LABS: WHITE BLOOD COUNT 11.7 10^3/ul (4.8-10.8)
[2017-11-13 10:46] LABS: PLATELET COUNT 688 10^3/UL (140-415)
[2017-11-13 11:24] LABS: ANION GAP 11 (8-16); BLOOD UREA NITROGEN 25 mg/dl (7-20); CALCIUM 8.6 mg/dl (8.4-10.2); CARBON DIOXIDE 30 mmol/L (21-31); CHLORIDE 100 mmol/L (97-110); CREATININE 1.54 mg/dl (0.61-1.24); GLUCOSE 85 mg/dl (70-220); SODIUM 136 mmol/L (135-144)
[2017-11-13] MEDS: CEFTRIAXONE 1 GM/50 ML (PMX) 50 ML IVPB (17:10)
[2017-11-13] MEDS: CARISOPRODOL 350 MG TAB PO (20:46)
[2017-11-14] MEDS: morphine 2 MG INJ IV ×4 (04:12→23:28)
[2017-11-14 06:20] LABS: ADD MAN DIFF? NO
[2017-11-14 06:30] LABS: WHITE BLOOD COUNT 11.9 10^3/ul (4.8-10.8)
[2017-11-14 06:30] LABS: BASOPHIL # 0.2 10^3/ul (0.0-0.1); BASOPHILS % 1.3 % (0.0-2.0); EOSINOPHILS # 0.1 10^3/ul (0.0-0.5); EOSINOPHILS % 0.8 % (0.0-7.0); HEMOGLOBIN 9.8 g/dl (14.0-18.0); LYMPHOCYTES # 1.3 10^3/ul (0.8-2.9); LYMPHOCYTES % 10.7 % (15.0-51.0); MEAN CORPUSCULAR HEMOGLOBIN 30.2 pg (29.0-33.0); MEAN CORPUSCULAR HGB CONC 32.7 g/dl (32.0-37.0); MEAN CORPUSCULAR VOLUME 92.3 fl (82.0-101.0); MEAN PLATELET VOLUME 8.2 fl (7.4-10.4); MONOCYTE # 0.8 10^3/ul (0.3-0.9); MONOCYTES % 6.9 % (0.0-11.0); NEUTROPHIL # 9.5 10^3/ul (1.6-7.5); RED BLOOD COUNT 3.25 10^6/ul (4.70-6.10); RED CELL DISTRIBUTION WIDTH 13.7 % (11.5-14.5)
[2017-11-14 06:59] LABS: MAGNESIUM 1.8 mg/dl (1.7-2.5)
[2017-11-14 06:59] LABS: PHOSPHORUS 5.5 mg/dl (2.5-4.9)
[2017-11-14 07:12] LABS: ALANINE AMINOTRANSFERASE 27 IU/L (13-69); ALBUMIN 2.2 g/dl (3.3-4.9); ALKALINE PHOSPHATASE 241 IU/L (42-121); ANION GAP 9 (8-16); ASPARTATE AMINO TRANSFERASE 27 IU/L (15-46); BILIRUBIN,INDIRECT 0.1 mg/dl (0-1.1); BILIRUBIN,TOTAL 0.1 mg/dl (0.2-1.3); BLOOD UREA NITROGEN 25 mg/dl (7-20); CALCIUM 8.9 mg/dl (8.4-10.2); CARBON DIOXIDE 32 mmol/L (21-31); CHLORIDE 100 mmol/L (97-110); CREATININE 1.47 mg/dl (0.61-1.24); GLUCOSE 110 mg/dl (70-220); POTASSIUM 5.1 mmol/L (3.5-5.1); SODIUM 136 mmol/L (135-144); TOTAL PROTEIN 6.6 g/dl (6.1-8.1)
[2017-11-14 07:23] LABS: PLATELET COUNT 656 10^3/UL (140-415)
[2017-11-14] MEDS ORDERED: FENTAnyl 50 MCG/ML VIAL ×3 (08:08→10:09)
[2017-11-14] MEDS ORDERED: MIDAZOLAM 1 MG/ML 2 ML INJ ×2 (08:08→10:08)
[2017-11-14] MEDS ORDERED: LIDOCAINE 2% (SDV) 5 ML INJ (08:11)
[2017-11-14] MEDS ORDERED: GLYCOPYRROLATE 0.4 MG INJ (08:11)
[2017-11-14] MEDS ORDERED: PROPOFOL 20 ML (08:11)
[2017-11-14] MEDS: CALCIUM CARBONATE 1.25 GM TAB PO ×3 (09:00→20:51)
[2017-11-14] MEDS ORDERED: ONDANSETRON 4 MG INJ (09:16)
[2017-11-14] MEDS ORDERED: DEXAMETHASONE 4 MG/ML 1 ML INJ (09:16)
[2017-11-14] MEDS ORDERED: ALBUTEROL 0.083% (NEB) 2.5 MG/3 ML AMP HHN (10:00)
[2017-11-14] MEDS ORDERED: HYDROmorphONE (0.2 MG/ML) 10ML SYG IV ×2 (10:00)
[2017-11-14] MEDS ORDERED: OXYCODONE/ACETAMINOPHEN (5/325) TAB PO ×2 (10:00)
[2017-11-14] MEDS ORDERED: ONDANSETRON 4 MG INJ IV (10:00)
[2017-11-14] MEDS ORDERED: METOCLOPRAMIDE 10 MG INJ IV (10:00)
[2017-11-14] MEDS ORDERED: MIDAZOLAM 1 MG/ML 2 ML INJ IV (10:00)
[2017-11-14] MEDS: HYDROmorphONE (0.2 MG/ML) 10ML SYG IV ×3 (10:19→10:36)
[2017-11-14] MEDS ORDERED: DIPHENHYDRAMINE 50 MG INJ (10:26)
[2017-11-14] MEDS ORDERED: LORAZEPAM 2 MG INJ (10:38)
[2017-11-14] MEDS: LORAZEPAM 2 MG INJ IV (10:44)
[2017-11-14] MEDS: DIPHENHYDRAMINE 50 MG INJ IV (10:44)
[2017-11-14] MEDS: NICOTINE (14 MG/24 HR) PATCH TRANSDERM (13:00)
[2017-11-14 15:11] LABS: INR 0.95; PROTIME 12.8 Sec (11.9-14.9)
[2017-11-14] MEDS: CEFTRIAXONE 1 GM/50 ML (PMX) 50 ML IVPB (17:21)
[2017-11-14] MEDS: CARISOPRODOL 350 MG TAB PO (20:50)
[2017-11-15] MEDS: morphine 2 MG INJ IV ×3 (04:18→12:51)
[2017-11-15] MEDS: NICOTINE (14 MG/24 HR) PATCH TRANSDERM (08:19)
[2017-11-15] MEDS: CALCIUM CARBONATE 1.25 GM TAB PO ×3 (08:19→20:10)
[2017-11-15] MEDS: SODIUM HYPOCHLORITE 1/40% 1L IRRIG IRR ×3 (08:19→20:11)
[2017-11-15] MEDS: HEPARIN 5,000 UNIT/0.5 ML VIAL SC ×2 (08:28→20:15)
[2017-11-15] MEDS: metroNIDAZOLE 500 MG/NS (PMX) 100 ML IVPB ×2 (14:45→21:39)
[2017-11-15] MEDS: ACETAMINOPHEN 325 MG TAB PO (15:05)
[2017-11-15] MEDS: morphine 4 MG/ML VIAL IV ×2 (16:07→20:09)
[2017-11-15] MEDS: CEFTRIAXONE 1 GM/50 ML (PMX) 50 ML IVPB (16:07)
[2017-11-15] MEDS: HYDROCODONE/APAP (7.5/325) TAB PO (17:28)
[2017-11-16] MEDS: morphine 4 MG/ML VIAL IV ×6 (00:32→21:50)
[2017-11-16] MEDS: metroNIDAZOLE 500 MG/NS (PMX) 100 ML IVPB ×3 (05:00→21:50)
[2017-11-16 06:50] LABS: ADD MAN DIFF? NO
[2017-11-16 06:53] LABS: WHITE BLOOD COUNT 9.7 10^3/ul (4.8-10.8)
[2017-11-16 06:53] LABS: BASOPHIL # 0.1 10^3/ul (0.0-0.1); BASOPHILS % 1.3 % (0.0-2.0); EOSINOPHILS # 0.3 10^3/ul (0.0-0.5); EOSINOPHILS % 3.3 % (0.0-7.0); HEMATOCRIT 31.5 % (42.0-52.0); HEMOGLOBIN 9.8 g/dl (14.0-18.0); LYMPHOCYTES # 1.3 10^3/ul (0.8-2.9); LYMPHOCYTES % 13.6 % (15.0-51.0); MEAN CORPUSCULAR HEMOGLOBIN 29.9 pg (29.0-33.0); MEAN CORPUSCULAR HGB CONC 31.1 g/dl (32.0-37.0); MEAN PLATELET VOLUME 8.2 fl (7.4-10.4); MONOCYTE # 0.8 10^3/ul (0.3-0.9); MONOCYTES % 7.8 % (0.0-11.0); NEUTROPHIL # 7.2 10^3/ul (1.6-7.5); NEUTROPHILS % 73.6 % (39.0-77.0); PLATELET COUNT 589 10^3/UL (140-415); RED BLOOD COUNT 3.28 10^6/ul (4.70-6.10); RED CELL DISTRIBUTION WIDTH 13.5 % (11.5-14.5)
[2017-11-16 07:23] LABS: ANION GAP 13 (8-16); BLOOD UREA NITROGEN 27 mg/dl (7-20); CALCIUM 8.8 mg/dl (8.4-10.2); CARBON DIOXIDE 34 mmol/L (21-31); CHLORIDE 96 mmol/L (97-110); CREATININE 1.49 mg/dl (0.61-1.24); GLUCOSE 106 mg/dl (70-220); POTASSIUM 4.8 mmol/L (3.5-5.1); SODIUM 138 mmol/L (135-144)
[2017-11-16] MEDS: SODIUM HYPOCHLORITE 1/40% 1L IRRIG IRR ×3 (09:00→21:00)
[2017-11-16] MEDS: CALCIUM CARBONATE 1.25 GM TAB PO ×3 (09:12→21:58)
[2017-11-16] MEDS: NICOTINE (14 MG/24 HR) PATCH TRANSDERM (09:13)
[2017-11-16] MEDS: HEPARIN 5,000 UNIT/0.5 ML VIAL SC ×2 (09:22→21:57)
[2017-11-16] MEDS: CARISOPRODOL 350 MG TAB PO (13:24)
[2017-11-16] MEDS: CALCIUM ACETATE 667 MG CAP NGT (17:23)
[2017-11-16] MEDS: CEFTRIAXONE 1 GM/50 ML (PMX) 50 ML IVPB (17:24)
[2017-11-17] MEDS: morphine 4 MG/ML VIAL IV ×5 (03:44→20:04)
[2017-11-17] MEDS: SODIUM HYPOCHLORITE 1/40% 1L IRRIG IRR ×3 (04:10→20:04)
[2017-11-17] MEDS: metroNIDAZOLE 500 MG/NS (PMX) 100 ML IVPB ×3 (05:48→22:29)
[2017-11-17] MEDS: CALCIUM CARBONATE 1.25 GM TAB PO ×3 (08:46→20:03)
[2017-11-17] MEDS: CALCIUM ACETATE 667 MG CAP NGT ×3 (08:46→18:02)
[2017-11-17] MEDS: HEPARIN 5,000 UNIT/0.5 ML VIAL SC ×2 (08:50→20:16)
[2017-11-17] MEDS: NICOTINE (14 MG/24 HR) PATCH TRANSDERM (08:52)
[2017-11-17] MEDS: CARISOPRODOL 350 MG TAB PO ×2 (14:27→23:53)
[2017-11-17] MEDS: CEFTRIAXONE 1 GM/50 ML (PMX) 50 ML IVPB (18:04)
[2017-11-17] MEDS: DOXYCYCLINE 100 MG TAB PO (20:03)
[2017-11-18] MEDS: morphine 4 MG/ML VIAL IV ×5 (00:58→21:55)
[2017-11-18] MEDS: metroNIDAZOLE 500 MG/NS (PMX) 100 ML IVPB ×3 (05:57→21:55)
[2017-11-18] MEDS: DOXYCYCLINE 100 MG TAB PO ×2 (08:39→20:41)
[2017-11-18] MEDS: CALCIUM ACETATE 667 MG CAP NGT ×3 (08:40→17:44)
[2017-11-18] MEDS: CALCIUM CARBONATE 1.25 GM TAB PO ×3 (08:40→20:41)
[2017-11-18] MEDS: NICOTINE (14 MG/24 HR) PATCH TRANSDERM (08:43)
[2017-11-18] MEDS: HEPARIN 5,000 UNIT/0.5 ML VIAL SC ×2 (08:46→20:46)
[2017-11-18] MEDS: CARISOPRODOL 350 MG TAB PO (16:35)
[2017-11-18] MEDS: CEFTRIAXONE 1 GM/50 ML (PMX) 50 ML IVPB (16:36)
[2017-11-18] MEDS: SODIUM HYPOCHLORITE 1/40% 1L IRRIG IRR ×2 (17:00→20:41)
[2017-11-19] MEDS: CARISOPRODOL 350 MG TAB PO (04:08)
[2017-11-19] MEDS: metroNIDAZOLE 500 MG/NS (PMX) 100 ML IVPB ×3 (05:53→21:27)
[2017-11-19] MEDS: morphine 4 MG/ML VIAL IV ×4 (06:26→21:28)
[2017-11-19] MEDS: SODIUM HYPOCHLORITE 1/40% 1L IRRIG IRR ×2 (07:53→21:30)
[2017-11-19] MEDS: CALCIUM ACETATE 667 MG CAP NGT ×3 (07:54→17:05)
[2017-11-19] MEDS: NICOTINE (14 MG/24 HR) PATCH TRANSDERM (07:54)
[2017-11-19] MEDS: DOXYCYCLINE 100 MG TAB PO ×2 (07:54→21:30)
[2017-11-19] MEDS: CALCIUM CARBONATE 1.25 GM TAB PO ×3 (07:54→21:00)
[2017-11-19] MEDS: HEPARIN 5,000 UNIT/0.5 ML VIAL SC ×2 (08:27→21:33)
[2017-11-19 08:54] LABS: ADD MAN DIFF? NO
[2017-11-19 08:55] LABS: BASOPHIL # 0.1 10^3/ul (0.0-0.1); BASOPHILS % 1.5 % (0.0-2.0); EOSINOPHILS # 0.5 10^3/ul (0.0-0.5); EOSINOPHILS % 5.8 % (0.0-7.0); HEMATOCRIT 31.8 % (42.0-52.0); HEMOGLOBIN 10.1 g/dl (14.0-18.0); LYMPHOCYTES # 1.8 10^3/ul (0.8-2.9); LYMPHOCYTES % 19.4 % (15.0-51.0); MEAN CORPUSCULAR HEMOGLOBIN 29.8 pg (29.0-33.0); MEAN CORPUSCULAR HGB CONC 31.8 g/dl (32.0-37.0); MEAN CORPUSCULAR VOLUME 93.8 fl (82.0-101.0); MEAN PLATELET VOLUME 8.3 fl (7.4-10.4); MONOCYTE # 0.8 10^3/ul (0.3-0.9); MONOCYTES % 9.1 % (0.0-11.0); NEUTROPHIL # 5.9 10^3/ul (1.6-7.5); NEUTROPHILS % 63.7 % (39.0-77.0); PLATELET COUNT 493 10^3/UL (140-415); RED BLOOD COUNT 3.39 10^6/ul (4.70-6.10); RED CELL DISTRIBUTION WIDTH 13.2 % (11.5-14.5)
[2017-11-19 08:55] LABS: WHITE BLOOD COUNT 9.2 10^3/ul (4.8-10.8)
[2017-11-19 09:26] LABS: ANION GAP 13 (8-16); BLOOD UREA NITROGEN 25 mg/dl (7-20); CALCIUM 9.1 mg/dl (8.4-10.2); CARBON DIOXIDE 32 mmol/L (21-31); CHLORIDE 97 mmol/L (97-110); CREATININE 1.56 mg/dl (0.61-1.24); GLUCOSE 109 mg/dl (70-220); POTASSIUM 4.6 mmol/L (3.5-5.1); SODIUM 137 mmol/L (135-144)
[2017-11-19] MEDS: FLUCONAZOLE 100 MG TAB PO (11:47)
[2017-11-19] MEDS: CEFTRIAXONE 1 GM/50 ML (PMX) 50 ML IVPB (17:05)
[2017-11-20 05:51] LABS: ADD MAN DIFF? NO
[2017-11-20 05:55] LABS: BASOPHIL # 0.2 10^3/ul (0.0-0.1); BASOPHILS % 1.9 % (0.0-2.0); EOSINOPHILS # 0.6 10^3/ul (0.0-0.5); EOSINOPHILS % 6.4 % (0.0-7.0); HEMATOCRIT 32.4 % (42.0-52.0); HEMOGLOBIN 10.2 g/dl (14.0-18.0); LYMPHOCYTES # 1.9 10^3/ul (0.8-2.9); LYMPHOCYTES % 21.1 % (15.0-51.0); MEAN CORPUSCULAR HEMOGLOBIN 29.8 pg (29.0-33.0); MEAN CORPUSCULAR HGB CONC 31.5 g/dl (32.0-37.0); MEAN CORPUSCULAR VOLUME 94.7 fl (82.0-101.0); MEAN PLATELET VOLUME 8.4 fl (7.4-10.4); MONOCYTE # 0.8 10^3/ul (0.3-0.9); MONOCYTES % 9.3 % (0.0-11.0); NEUTROPHIL # 5.4 10^3/ul (1.6-7.5); NEUTROPHILS % 60.7 % (39.0-77.0); PLATELET COUNT 515 10^3/UL (140-415); RED BLOOD COUNT 3.42 10^6/ul (4.70-6.10); RED CELL DISTRIBUTION WIDTH 13.2 % (11.5-14.5)
[2017-11-20 05:55] LABS: WHITE BLOOD COUNT 8.9 10^3/ul (4.8-10.8)
[2017-11-20] MEDS: CARISOPRODOL 350 MG TAB PO (05:57)
[2017-11-20] MEDS: metroNIDAZOLE 500 MG/NS (PMX) 100 ML IVPB ×3 (05:58→21:18)
[2017-11-20 06:28] LABS: ANION GAP 12 (8-16); BLOOD UREA NITROGEN 26 mg/dl (7-20); CALCIUM 9.3 mg/dl (8.4-10.2); CARBON DIOXIDE 30 mmol/L (21-31); CHLORIDE 100 mmol/L (97-110); CREATININE 1.36 mg/dl (0.61-1.24); GLUCOSE 108 mg/dl (70-220); POTASSIUM 4.9 mmol/L (3.5-5.1); SODIUM 137 mmol/L (135-144)
[2017-11-20 06:35] LABS: PHOSPHORUS 4.7 mg/dl (2.5-4.9)
[2017-11-20] MEDS: morphine 4 MG/ML VIAL IV ×4 (07:14→21:18)
[2017-11-20] MEDS: CALCIUM CARBONATE 1.25 GM TAB PO ×3 (08:38→20:17)
[2017-11-20] MEDS: CALCIUM ACETATE 667 MG CAP NGT ×3 (08:38→17:25)
[2017-11-20] MEDS: DOXYCYCLINE 100 MG TAB PO ×2 (08:38→20:17)
[2017-11-20] MEDS: FLUCONAZOLE 100 MG TAB PO (08:40)
[2017-11-20] MEDS: SODIUM HYPOCHLORITE 1/40% 1L IRRIG IRR ×2 (08:40→20:17)
[2017-11-20] MEDS: HEPARIN 5,000 UNIT/0.5 ML VIAL SC ×2 (08:54→20:32)
[2017-11-20] MEDS: NICOTINE (14 MG/24 HR) PATCH TRANSDERM (09:05)
[2017-11-20] MEDS: HYDROCODONE/APAP (7.5/325) TAB PO ×2 (13:20→20:17)
[2017-11-20] MEDS: CEFTRIAXONE 1 GM/50 ML (PMX) 50 ML IVPB (17:25)
[2017-11-21] MEDS: CARISOPRODOL 350 MG TAB PO ×2 (01:36→16:30)
[2017-11-21] MEDS: morphine 4 MG/ML VIAL IV ×5 (02:27→23:43)
[2017-11-21] MEDS: metroNIDAZOLE 500 MG/NS (PMX) 100 ML IVPB ×3 (05:13→21:33)
[2017-11-21] MEDS: HYDROCODONE/APAP (7.5/325) TAB PO ×3 (05:55→21:32)
[2017-11-21 06:57] LABS: ADD MAN DIFF? NO
[2017-11-21 07:04] LABS: BASOPHIL # 0.1 10^3/ul (0.0-0.1); BASOPHILS % 1.6 % (0.0-2.0); EOSINOPHILS # 0.6 10^3/ul (0.0-0.5); EOSINOPHILS % 7.3 % (0.0-7.0); HEMATOCRIT 31.2 % (42.0-52.0); HEMOGLOBIN 9.7 g/dl (14.0-18.0); LYMPHOCYTES # 2.1 10^3/ul (0.8-2.9); LYMPHOCYTES % 24.2 % (15.0-51.0); MEAN CORPUSCULAR HEMOGLOBIN 30.6 pg (29.0-33.0); MEAN CORPUSCULAR HGB CONC 31.1 g/dl (32.0-37.0); MEAN CORPUSCULAR VOLUME 98.4 fl (82.0-101.0); MEAN PLATELET VOLUME 8.5 fl (7.4-10.4); MONOCYTES % 11.8 % (0.0-11.0); NEUTROPHIL # 4.8 10^3/ul (1.6-7.5); NEUTROPHILS % 54.4 % (39.0-77.0); PLATELET COUNT 516 10^3/UL (140-415); RED BLOOD COUNT 3.17 10^6/ul (4.70-6.10); RED CELL DISTRIBUTION WIDTH 13.4 % (11.5-14.5)
[2017-11-21 07:04] LABS: WHITE BLOOD COUNT 8.8 10^3/ul (4.8-10.8)
[2017-11-21 07:37] LABS: ANION GAP 12 (8-16); BLOOD UREA NITROGEN 31 mg/dl (7-20); CALCIUM 8.9 mg/dl (8.4-10.2); CARBON DIOXIDE 32 mmol/L (21-31); CHLORIDE 98 mmol/L (97-110); CREATININE 1.58 mg/dl (0.61-1.24); GLUCOSE 141 mg/dl (70-220); POTASSIUM 4.3 mmol/L (3.5-5.1); SODIUM 138 mmol/L (135-144)
[2017-11-21 07:40] LABS: MAGNESIUM 2.2 mg/dl (1.7-2.5)
[2017-11-21] MEDS: CALCIUM ACETATE 667 MG CAP NGT ×3 (08:26→17:33)
[2017-11-21] MEDS: DOXYCYCLINE 100 MG TAB PO ×2 (08:26→20:24)
[2017-11-21] MEDS: CALCIUM CARBONATE 1.25 GM TAB PO ×3 (08:27→20:24)
[2017-11-21] MEDS: FLUCONAZOLE 100 MG TAB PO (08:27)
[2017-11-21] MEDS: HEPARIN 5,000 UNIT/0.5 ML VIAL SC ×2 (08:31→20:31)
[2017-11-21] MEDS: NICOTINE (14 MG/24 HR) PATCH TRANSDERM (08:34)
[2017-11-21] MEDS: SODIUM HYPOCHLORITE 1/40% 1L IRRIG IRR ×2 (17:00→21:00)
[2017-11-21] MEDS: CEFTRIAXONE 1 GM/50 ML (PMX) 50 ML IVPB (17:35)
[2017-11-22] MEDS: morphine 4 MG/ML VIAL IV ×5 (04:24→23:34)
[2017-11-22] MEDS: metroNIDAZOLE 500 MG/NS (PMX) 100 ML IVPB ×3 (05:56→21:19)
[2017-11-22] MEDS: CALCIUM CARBONATE 1.25 GM TAB PO ×3 (08:43→21:19)
[2017-11-22] MEDS: CALCIUM ACETATE 667 MG CAP NGT ×3 (08:43→17:37)
[2017-11-22] MEDS: DOXYCYCLINE 100 MG TAB PO ×2 (08:43→21:19)
[2017-11-22] MEDS: FLUCONAZOLE 100 MG TAB PO (08:43)
[2017-11-22] MEDS: NICOTINE (14 MG/24 HR) PATCH TRANSDERM (08:45)
[2017-11-22] MEDS: HEPARIN 5,000 UNIT/0.5 ML VIAL SC ×2 (08:50→21:29)
[2017-11-22] MEDS: CEFTRIAXONE 1 GM/50 ML (PMX) 50 ML IVPB (16:19)
[2017-11-22] MEDS: SODIUM HYPOCHLORITE 1/40% 1L IRRIG IRR ×2 (17:00→21:00)
[2017-11-22] MEDS: CARISOPRODOL 350 MG TAB PO (17:36)
[2017-11-23] MEDS: morphine 4 MG/ML VIAL IV ×4 (05:11→21:54)
[2017-11-23] MEDS: metroNIDAZOLE 500 MG/NS (PMX) 100 ML IVPB ×3 (05:16→21:54)
[2017-11-23] MEDS: CALCIUM CARBONATE 1.25 GM TAB PO ×3 (07:59→20:21)
[2017-11-23] MEDS: CALCIUM ACETATE 667 MG CAP NGT ×3 (08:00→17:08)
[2017-11-23] MEDS: DOXYCYCLINE 100 MG TAB PO ×2 (08:00→20:30)
[2017-11-23] MEDS: FLUCONAZOLE 100 MG TAB PO (08:00)
[2017-11-23] MEDS: SODIUM HYPOCHLORITE 1/40% 1L IRRIG IRR ×2 (08:00→21:00)
[2017-11-23] MEDS: NICOTINE (14 MG/24 HR) PATCH TRANSDERM (08:03)
[2017-11-23] MEDS: HEPARIN 5,000 UNIT/0.5 ML VIAL SC ×2 (08:11→20:25)
[2017-11-23] MEDS: AMLODIPINE 5 MG TAB PO (14:12)
[2017-11-23] MEDS: HYDROCODONE/APAP (7.5/325) TAB PO ×2 (14:12→20:26)
[2017-11-23] MEDS: CARISOPRODOL 350 MG TAB PO (16:14)
[2017-11-23] MEDS: CEFTRIAXONE 1 GM/50 ML (PMX) 50 ML IVPB (17:08)
[2017-11-24] MEDS: HYDROCODONE/APAP (7.5/325) TAB PO ×2 (02:40→15:13)
[2017-11-24] MEDS: CARISOPRODOL 350 MG TAB PO ×2 (03:32→15:13)
[2017-11-24] MEDS: SODIUM HYPOCHLORITE 1/40% 1L IRRIG IRR ×3 (03:55→21:20)
[2017-11-24] MEDS: morphine 4 MG/ML VIAL IV ×4 (04:26→21:17)
[2017-11-24] MEDS: metroNIDAZOLE 500 MG/NS (PMX) 100 ML IVPB ×3 (05:55→21:10)
[2017-11-24 07:27] LABS: ADD MAN DIFF? NO
[2017-11-24 07:36] LABS: WHITE BLOOD COUNT 7.6 10^3/ul (4.8-10.8)
[2017-11-24 07:36] LABS: BASOPHIL # 0.1 10^3/ul (0.0-0.1); BASOPHILS % 0.9 % (0.0-2.0); EOSINOPHILS # 0.4 10^3/ul (0.0-0.5); HEMATOCRIT 29.7 % (42.0-52.0); HEMOGLOBIN 9.4 g/dl (14.0-18.0); LYMPHOCYTES # 1.3 10^3/ul (0.8-2.9); LYMPHOCYTES % 16.8 % (15.0-51.0); MEAN CORPUSCULAR HEMOGLOBIN 30.8 pg (29.0-33.0); MEAN CORPUSCULAR HGB CONC 31.6 g/dl (32.0-37.0); MEAN CORPUSCULAR VOLUME 97.4 fl (82.0-101.0); MEAN PLATELET VOLUME 8.7 fl (7.4-10.4); MONOCYTE # 1.1 10^3/ul (0.3-0.9); MONOCYTES % 14.8 % (0.0-11.0); NEUTROPHIL # 4.7 10^3/ul (1.6-7.5); NEUTROPHILS % 61.4 % (39.0-77.0); PLATELET COUNT 476 10^3/UL (140-415); RED BLOOD COUNT 3.05 10^6/ul (4.70-6.10); RED CELL DISTRIBUTION WIDTH 13.4 % (11.5-14.5)
[2017-11-24 07:55] LABS: CARBON DIOXIDE 28 mmol/L (21-31); CHLORIDE 100 mmol/L (97-110); POTASSIUM 4.8 mmol/L (3.5-5.1); SODIUM 135 mmol/L (135-144)
[2017-11-24 07:56] LABS: ANION GAP 12 (8-16); BLOOD UREA NITROGEN 25 mg/dl (7-20); CALCIUM 8.9 mg/dl (8.4-10.2); CREATININE 1.44 mg/dl (0.61-1.24); GLUCOSE 104 mg/dl (70-220)
[2017-11-24 07:59] LABS: INR 1.01; PARTIAL THROMBOPLASTIN TIME 28.1 Sec (25.0-35.0); PROTIME 13.4 Sec (11.9-14.9)
[2017-11-24] MEDS: DOXYCYCLINE 100 MG TAB PO ×2 (08:57→21:10)
[2017-11-24] MEDS: CALCIUM ACETATE 667 MG CAP NGT ×3 (08:57→17:38)
[2017-11-24] MEDS: NICOTINE (14 MG/24 HR) PATCH TRANSDERM (08:57)
[2017-11-24] MEDS: AMLODIPINE 5 MG TAB PO (08:57)
[2017-11-24] MEDS: CALCIUM CARBONATE 1.25 GM TAB PO ×3 (08:58→21:10)
[2017-11-24] MEDS: FLUCONAZOLE 100 MG TAB PO (08:58)
[2017-11-24] MEDS: HEPARIN 5,000 UNIT/0.5 ML VIAL SC ×2 (09:31→21:16)
[2017-11-24] MEDS: CEFTRIAXONE 1 GM/50 ML (PMX) 50 ML IVPB (16:24)
[2017-11-25] MEDS: HYDROCODONE/APAP (7.5/325) TAB PO ×3 (02:40→20:30)
[2017-11-25] MEDS: CARISOPRODOL 350 MG TAB PO ×2 (03:32→14:07)
[2017-11-25] MEDS: morphine 4 MG/ML VIAL IV ×4 (04:34→21:14)
[2017-11-25] MEDS: metroNIDAZOLE 500 MG/NS (PMX) 100 ML IVPB ×3 (06:00→21:15)
[2017-11-25] MEDS: CALCIUM CARBONATE 1.25 GM TAB PO ×3 (07:52→20:27)
[2017-11-25] MEDS: FLUCONAZOLE 100 MG TAB PO (07:52)
[2017-11-25] MEDS: CALCIUM ACETATE 667 MG CAP NGT ×3 (07:53→17:29)
[2017-11-25] MEDS: DOXYCYCLINE 100 MG TAB PO ×2 (07:53→20:27)
[2017-11-25] MEDS: AMLODIPINE 5 MG TAB PO (07:54)
[2017-11-25] MEDS: SODIUM HYPOCHLORITE 1/40% 1L IRRIG IRR ×2 (07:54→20:41)
[2017-11-25] MEDS: NICOTINE (14 MG/24 HR) PATCH TRANSDERM (07:55)
[2017-11-25] MEDS: HEPARIN 5,000 UNIT/0.5 ML VIAL SC ×2 (08:06→20:32)
[2017-11-25] MEDS: CEFTRIAXONE 1 GM/50 ML (PMX) 50 ML IVPB (17:28)
[2017-11-26] MEDS: CARISOPRODOL 350 MG TAB PO ×2 (00:02→11:08)
[2017-11-26] MEDS: morphine 4 MG/ML VIAL IV ×6 (01:04→21:27)
[2017-11-26] MEDS: HYDROCODONE/APAP (7.5/325) TAB PO ×4 (03:30→20:26)
[2017-11-26] MEDS: SODIUM HYPOCHLORITE 1/40% 1L IRRIG IRR ×3 (05:08→20:30)
[2017-11-26] MEDS: metroNIDAZOLE 500 MG/NS (PMX) 100 ML IVPB ×2 (06:00→13:03)
[2017-11-26 06:39] LABS: ADD MAN DIFF? NO
[2017-11-26 06:43] LABS: WHITE BLOOD COUNT 11.5 10^3/ul (4.8-10.8)
[2017-11-26 06:43] LABS: BASOPHIL # 0.1 10^3/ul (0.0-0.1); BASOPHILS % 1.2 % (0.0-2.0); EOSINOPHILS # 0.5 10^3/ul (0.0-0.5); EOSINOPHILS % 4.7 % (0.0-7.0); HEMATOCRIT 32.3 % (42.0-52.0); HEMOGLOBIN 10.5 g/dl (14.0-18.0); LYMPHOCYTES # 1.7 10^3/ul (0.8-2.9); MEAN CORPUSCULAR HEMOGLOBIN 30.7 pg (29.0-33.0); MEAN CORPUSCULAR HGB CONC 32.5 g/dl (32.0-37.0); MEAN CORPUSCULAR VOLUME 94.4 fl (82.0-101.0); MEAN PLATELET VOLUME 8.6 fl (7.4-10.4); MONOCYTE # 0.8 10^3/ul (0.3-0.9); MONOCYTES % 6.7 % (0.0-11.0); NEUTROPHIL # 8.3 10^3/ul (1.6-7.5); NEUTROPHILS % 71.7 % (39.0-77.0); PLATELET COUNT 541 10^3/UL (140-415); RED BLOOD COUNT 3.42 10^6/ul (4.70-6.10); RED CELL DISTRIBUTION WIDTH 13.5 % (11.5-14.5)
[2017-11-26 07:13] LABS: ANION GAP 13 (8-16); BLOOD UREA NITROGEN 23 mg/dl (7-20); CALCIUM 9.3 mg/dl (8.4-10.2); CARBON DIOXIDE 29 mmol/L (21-31); CHLORIDE 103 mmol/L (97-110); GLUCOSE 124 mg/dl (70-220); POTASSIUM 4.8 mmol/L (3.5-5.1); SODIUM 140 mmol/L (135-144)
[2017-11-26 07:27] LABS: MAGNESIUM 1.9 mg/dl (1.7-2.5)
[2017-11-26 07:27] LABS: PHOSPHORUS 4.7 mg/dl (2.5-4.9)
[2017-11-26] MEDS: CALCIUM ACETATE 667 MG CAP NGT ×3 (08:18→17:28)
[2017-11-26] MEDS: NICOTINE (14 MG/24 HR) PATCH TRANSDERM (08:18)
[2017-11-26] MEDS: FLUCONAZOLE 100 MG TAB PO (08:18)
[2017-11-26] MEDS: AMLODIPINE 5 MG TAB PO (08:18)
[2017-11-26] MEDS: CALCIUM CARBONATE 1.25 GM TAB PO ×3 (08:18→20:26)
[2017-11-26] MEDS: DOXYCYCLINE 100 MG TAB PO (08:18)
[2017-11-26] MEDS: HEPARIN 5,000 UNIT/0.5 ML VIAL SC ×2 (08:23→20:29)
[2017-11-26] MEDS: morphine 2 MG INJ IV (14:51)
[2017-11-27] MEDS: morphine 4 MG/ML VIAL IV ×6 (01:22→21:49)
[2017-11-27] MEDS: SODIUM HYPOCHLORITE 1/40% 1L IRRIG IRR ×3 (05:32→21:00)
[2017-11-27] MEDS: NICOTINE (14 MG/24 HR) PATCH TRANSDERM (09:00)
[2017-11-27] MEDS: AMLODIPINE 5 MG TAB PO (09:16)
[2017-11-27] MEDS: CALCIUM ACETATE 667 MG CAP NGT ×3 (09:17→17:49)
[2017-11-27] MEDS: CALCIUM CARBONATE 1.25 GM TAB PO ×3 (09:17→20:53)
[2017-11-27] MEDS: HEPARIN 5,000 UNIT/0.5 ML VIAL SC ×2 (09:18→21:06)
[2017-11-27] MEDS: CARISOPRODOL 350 MG TAB PO (14:56)
[2017-11-27] MEDS: HYDROCODONE/APAP (7.5/325) TAB PO ×2 (14:56→20:53)
[2017-11-28] MEDS: morphine 4 MG/ML VIAL IV ×5 (01:44→21:20)
[2017-11-28] MEDS: SODIUM HYPOCHLORITE 1/40% 1L IRRIG IRR ×3 (05:53→21:00)
[2017-11-28 06:21] LABS: ADD MAN DIFF? NO
[2017-11-28 06:27] LABS: BASOPHIL # 0.1 10^3/ul (0.0-0.1); EOSINOPHILS # 0.5 10^3/ul (0.0-0.5); EOSINOPHILS % 3.7 % (0.0-7.0); HEMATOCRIT 35.1 % (42.0-52.0); HEMOGLOBIN 10.9 g/dl (14.0-18.0); LYMPHOCYTES # 2.4 10^3/ul (0.8-2.9); LYMPHOCYTES % 17.3 % (15.0-51.0); MEAN CORPUSCULAR HEMOGLOBIN 29.9 pg (29.0-33.0); MEAN CORPUSCULAR HGB CONC 31.1 g/dl (32.0-37.0); MEAN CORPUSCULAR VOLUME 96.4 fl (82.0-101.0); MEAN PLATELET VOLUME 8.5 fl (7.4-10.4); MONOCYTE # 1.3 10^3/ul (0.3-0.9); MONOCYTES % 9.3 % (0.0-11.0); NEUTROPHIL # 9.4 10^3/ul (1.6-7.5); PLATELET COUNT 573 10^3/UL (140-415); RED BLOOD COUNT 3.64 10^6/ul (4.70-6.10); RED CELL DISTRIBUTION WIDTH 13.5 % (11.5-14.5)
[2017-11-28 06:27] LABS: WHITE BLOOD COUNT 13.8 10^3/ul (4.8-10.8)
[2017-11-28 07:17] LABS: ANION GAP 14 (8-16); BLOOD UREA NITROGEN 28 mg/dl (7-20); CALCIUM 9.3 mg/dl (8.4-10.2); CARBON DIOXIDE 29 mmol/L (21-31); CHLORIDE 99 mmol/L (97-110); CREATININE 1.37 mg/dl (0.61-1.24); GLUCOSE 118 mg/dl (70-220); POTASSIUM 5.3 mmol/L (3.5-5.1); SODIUM 137 mmol/L (135-144)
[2017-11-28] MEDS: NICOTINE (14 MG/24 HR) PATCH TRANSDERM ×2 (09:00→09:12)
[2017-11-28] MEDS: CALCIUM CARBONATE 1.25 GM TAB PO ×3 (09:12→21:19)
[2017-11-28] MEDS: NA POLYST SULFON 15 GM/60 ML BTL PO (09:12)
[2017-11-28] MEDS: AMLODIPINE 5 MG TAB PO (09:13)
[2017-11-28] MEDS: CALCIUM ACETATE 667 MG CAP NGT ×3 (09:13→18:00)
[2017-11-28] MEDS: HEPARIN 5,000 UNIT/0.5 ML VIAL SC ×2 (09:35→21:40)
[2017-11-28 10:47] LABS: ADD UMIC YES; UR ASCORBIC ACID 40 mg/dL (NEGATIVE); UR BACTERIA FEW /HPF (NONE SEEN); UR BILIRUBIN (Dip) NEGATIVE (NEGATIVE); UR BLOOD (Dip) 2+ mg/dL (NEGATIVE); UR CLARITY CLEAR (CLEAR); UR COLOR YELLOW (YELLOW); UR GLUCOSE (Dip) NEGATIVE (NEGATIVE); UR KETONES (Dip) NEGATIVE (NEGATIVE); UR LEUKOCYTE ESTERASE (Dip) NEGATIVE Leu/ul (NEGATIVE); UR NITRITE (Dip) NEGATIVE (NEGATIVE); UR RBC 40 /HPF (0-5); UR SPECIFIC GRAVITY (Dip) 1.014 (1.003-1.030); UR TOTAL PROTEIN (Dip) 2+ mg/dl (NEGATIVE); UR UROBILINOGEN (Dip) NEGATIVE (NEGATIVE); UR WBC 6 /HPF (0-5)
[2017-11-28] MEDS: CARISOPRODOL 350 MG TAB PO (15:28)
[2017-11-28] MEDS: DAPTOMYCIN 700 MG in SOD CHLORIDE 0.9% 100 ML IVPB ×2 (22:00→23:05)
[2017-11-29] MEDS: morphine 4 MG/ML VIAL IV ×5 (01:32→22:28)
[2017-11-29] MEDS: SODIUM HYPOCHLORITE 1/40% 1L IRRIG IRR ×4 (06:05→20:29)
[2017-11-29] MEDS: NICOTINE (14 MG/24 HR) PATCH TRANSDERM (09:00)
[2017-11-29] MEDS: CALCIUM ACETATE 667 MG CAP NGT ×3 (09:39→17:37)
[2017-11-29] MEDS: CALCIUM CARBONATE 1.25 GM TAB PO ×3 (09:41→20:28)
[2017-11-29] MEDS: AMLODIPINE 5 MG TAB PO (09:41)
[2017-11-29] MEDS: HEPARIN 5,000 UNIT/0.5 ML VIAL SC ×2 (09:45→20:32)
[2017-11-29] MEDS: CARISOPRODOL 350 MG TAB PO (16:37)
[2017-11-29] MEDS: NA POLYST SULFON 15 GM/60 ML BTL PO (18:54)
[2017-11-29] MEDS: DAPTOMYCIN 700 MG in SOD CHLORIDE 0.9% 100 ML IVPB (22:28)
[2017-11-30] MEDS: SODIUM HYPOCHLORITE 1/40% 1L IRRIG IRR ×3 (05:10→21:00)
[2017-11-30] MEDS: morphine 4 MG/ML VIAL IV ×5 (05:11→21:11)
[2017-11-30 06:19] LABS: ADD MAN DIFF? NO
[2017-11-30 06:33] LABS: WHITE BLOOD COUNT 11.3 10^3/ul (4.8-10.8)
[2017-11-30 06:33] LABS: BASOPHIL # 0.1 10^3/ul (0.0-0.1); BASOPHILS % 0.8 % (0.0-2.0); EOSINOPHILS # 0.2 10^3/ul (0.0-0.5); EOSINOPHILS % 1.7 % (0.0-7.0); HEMATOCRIT 30.1 % (42.0-52.0); HEMOGLOBIN 9.6 g/dl (14.0-18.0); LYMPHOCYTES # 2.1 10^3/ul (0.8-2.9); LYMPHOCYTES % 18.6 % (15.0-51.0); MEAN CORPUSCULAR HEMOGLOBIN 30.8 pg (29.0-33.0); MEAN CORPUSCULAR HGB CONC 31.9 g/dl (32.0-37.0); MEAN CORPUSCULAR VOLUME 96.5 fl (82.0-101.0); MEAN PLATELET VOLUME 8.9 fl (7.4-10.4); MONOCYTE # 1.2 10^3/ul (0.3-0.9); MONOCYTES % 10.9 % (0.0-11.0); NEUTROPHIL # 7.6 10^3/ul (1.6-7.5); NEUTROPHILS % 67.6 % (39.0-77.0); PLATELET COUNT 466 10^3/UL (140-415); RED BLOOD COUNT 3.12 10^6/ul (4.70-6.10); RED CELL DISTRIBUTION WIDTH 13.7 % (11.5-14.5)
[2017-11-30 07:03] LABS: ALANINE AMINOTRANSFERASE 36 IU/L (13-69); ALBUMIN 2.9 g/dl (3.3-4.9); ALBUMIN/GLOBULIN RATIO 0.76; ALKALINE PHOSPHATASE 189 IU/L (42-121); ANION GAP 8 (8-16); ASPARTATE AMINO TRANSFERASE 35 IU/L (15-46); BLOOD UREA NITROGEN 26 mg/dl (7-20); CALCIUM 8.8 mg/dl (8.4-10.2); CARBON DIOXIDE 34 mmol/L (21-31); CHLORIDE 95 mmol/L (97-110); CREATININE 1.16 mg/dl (0.61-1.24); GLUCOSE 123 mg/dl (70-220); POTASSIUM 5.3 mmol/L (3.5-5.1); SODIUM 132 mmol/L (135-144); TOTAL PROTEIN 6.7 g/dl (6.1-8.1)
[2017-11-30 07:50] LABS: CREATINE KINASE < 20 IU/L (23-200); TROPONIN-I < 0.012 ng/ml (0.00-0.12)
[2017-11-30 07:51] LABS: CK-MB 0.44 ng/ml (0.0-2.4)
[2017-11-30 07:58] LABS: ERYTHROCYTE SEDIMENTATION RATE 87 mm/Hr (0-20)
[2017-11-30 08:37] LABS: C-REACTIVE PROTEIN 4.4 mg/dl (0.0-0.9)
[2017-11-30] MEDS: CALCIUM ACETATE 667 MG CAP NGT ×3 (08:43→17:47)
[2017-11-30] MEDS: AMLODIPINE 5 MG TAB PO (08:44)
[2017-11-30] MEDS: CALCIUM CARBONATE 1.25 GM TAB PO ×3 (08:44→21:04)
[2017-11-30] MEDS: NICOTINE (14 MG/24 HR) PATCH TRANSDERM (08:45)
[2017-11-30] MEDS: HEPARIN 5,000 UNIT/0.5 ML VIAL SC ×2 (08:51→21:06)
[2017-11-30] MEDS: NA POLYST SULFON 15 GM/60 ML BTL PO (16:54)
[2017-11-30] MEDS: DAPTOMYCIN 700 MG in SOD CHLORIDE 0.9% 100 ML IVPB (21:11)
[2017-12-01] MEDS: morphine 4 MG/ML VIAL IV ×4 (04:37→17:44)
[2017-12-01 06:51] LABS: ADD MAN DIFF? NO
[2017-12-01 07:03] LABS: WHITE BLOOD COUNT 11.2 10^3/ul (4.8-10.8)
[2017-12-01 07:03] LABS: BASOPHIL # 0.1 10^3/ul (0.0-0.1); BASOPHILS % 0.7 % (0.0-2.0); EOSINOPHILS # 0.4 10^3/ul (0.0-0.5); EOSINOPHILS % 3.6 % (0.0-7.0); HEMATOCRIT 31.7 % (42.0-52.0); HEMOGLOBIN 10.2 g/dl (14.0-18.0); LYMPHOCYTES # 1.8 10^3/ul (0.8-2.9); LYMPHOCYTES % 15.7 % (15.0-51.0); MEAN CORPUSCULAR HEMOGLOBIN 30.5 pg (29.0-33.0); MEAN CORPUSCULAR HGB CONC 32.2 g/dl (32.0-37.0); MEAN CORPUSCULAR VOLUME 94.9 fl (82.0-101.0); MEAN PLATELET VOLUME 9.7 fl (7.4-10.4); MONOCYTE # 1.2 10^3/ul (0.3-0.9); MONOCYTES % 10.6 % (0.0-11.0); NEUTROPHIL # 7.7 10^3/ul (1.6-7.5); PLATELET COUNT 395 10^3/UL (140-415); POSITIVE DIFF @See below; RED BLOOD COUNT 3.34 10^6/ul (4.70-6.10); RED CELL DISTRIBUTION WIDTH 13.2 % (11.5-14.5)
[2017-12-01 07:29] LABS: ALANINE AMINOTRANSFERASE 37 IU/L (13-69); ALBUMIN 3.1 g/dl (3.3-4.9); ALBUMIN/GLOBULIN RATIO 0.81; ALKALINE PHOSPHATASE 161 IU/L (42-121); ANION GAP 15 (8-16); ASPARTATE AMINO TRANSFERASE 38 IU/L (15-46); BLOOD UREA NITROGEN 26 mg/dl (7-20); CALCIUM 8.3 mg/dl (8.4-10.2); CARBON DIOXIDE 29 mmol/L (21-31); CHLORIDE 98 mmol/L (97-110); GLUCOSE 134 mg/dl (70-220); POTASSIUM 4.1 mmol/L (3.5-5.1); SODIUM 138 mmol/L (135-144); TOTAL PROTEIN 6.9 g/dl (6.1-8.1)
[2017-12-01] MEDS: AMLODIPINE 5 MG TAB PO (08:25)
[2017-12-01] MEDS: CALCIUM CARBONATE 1.25 GM TAB PO ×3 (08:25→20:47)
[2017-12-01] MEDS: CALCIUM ACETATE 667 MG CAP NGT ×3 (08:26→17:44)
[2017-12-01] MEDS: NICOTINE (14 MG/24 HR) PATCH TRANSDERM ×2 (08:28→09:00)
[2017-12-01] MEDS: HEPARIN 5,000 UNIT/0.5 ML VIAL SC ×2 (08:34→20:49)
[2017-12-01] MEDS: CARISOPRODOL 350 MG TAB PO (16:29)
[2017-12-01] MEDS: SODIUM HYPOCHLORITE 1/40% 1L IRRIG IRR ×2 (17:30→21:00)
[2017-12-01] MEDS: ONDANSETRON 4 MG INJ IV (21:54)
[2017-12-01] MEDS: DAPTOMYCIN 700 MG in SOD CHLORIDE 0.9% 100 ML IVPB (22:04)
[2017-12-02 06:20] LABS: ADD MAN DIFF? NO
[2017-12-02 06:25] LABS: WHITE BLOOD COUNT 9.3 10^3/ul (4.8-10.8)
[2017-12-02 06:25] LABS: ABNORMAL IP MESSAGE 1; BASOPHIL # 0.1 10^3/ul (0.0-0.1); BASOPHILS % 0.5 % (0.0-2.0); HEMATOCRIT 31.6 % (42.0-52.0); HEMOGLOBIN 10.4 g/dl (14.0-18.0); LYMPHOCYTES # 0.6 10^3/ul (0.8-2.9); MEAN CORPUSCULAR HEMOGLOBIN 30.8 pg (29.0-33.0); MEAN CORPUSCULAR HGB CONC 32.9 g/dl (32.0-37.0); MEAN CORPUSCULAR VOLUME 93.5 fl (82.0-101.0); MEAN PLATELET VOLUME 9.1 fl (7.4-10.4); MONOCYTE # 0.4 10^3/ul (0.3-0.9); MONOCYTES % 4.1 % (0.0-11.0); NEUTROPHIL # 8.3 10^3/ul (1.6-7.5); PLATELET COUNT 468 10^3/UL (140-415); POSITIVE DIFF @See below; RED BLOOD COUNT 3.38 10^6/ul (4.70-6.10); RED CELL DISTRIBUTION WIDTH 13.2 % (11.5-14.5)
[2017-12-02] MEDS: morphine 4 MG/ML VIAL IV ×4 (06:39→20:21)
[2017-12-02 07:12] LABS: ANION GAP 15 (8-16); BLOOD UREA NITROGEN 24 mg/dl (7-20); CALCIUM 8.3 mg/dl (8.4-10.2); CARBON DIOXIDE 30 mmol/L (21-31); CHLORIDE 99 mmol/L (97-110); CREATININE 1.25 mg/dl (0.61-1.24); GLUCOSE 137 mg/dl (70-220); POTASSIUM 4.5 mmol/L (3.5-5.1); SODIUM 139 mmol/L (135-144)
[2017-12-02] MEDS: AMLODIPINE 5 MG TAB PO (08:19)
[2017-12-02] MEDS: CALCIUM ACETATE 667 MG CAP NGT ×3 (08:19→17:58)
[2017-12-02] MEDS: CALCIUM CARBONATE 1.25 GM TAB PO ×3 (08:20→20:20)
[2017-12-02] MEDS: HYDROCODONE/APAP (7.5/325) TAB PO (08:21)
[2017-12-02] MEDS: HEPARIN 5,000 UNIT/0.5 ML VIAL SC ×2 (08:24→20:45)
[2017-12-02] MEDS: SODIUM HYPOCHLORITE 1/40% 1L IRRIG IRR ×2 (10:45→22:48)
[2017-12-02] MEDS: DAPTOMYCIN 700 MG in SOD CHLORIDE 0.9% 100 ML IVPB (22:48)
[2017-12-03] MEDS: morphine 4 MG/ML VIAL IV ×5 (00:03→21:21)
[2017-12-03] MEDS: AMLODIPINE 5 MG TAB PO (08:39)
[2017-12-03] MEDS: CALCIUM CARBONATE 1.25 GM TAB PO ×3 (08:39→20:39)
[2017-12-03] MEDS: CALCIUM ACETATE 667 MG CAP NGT ×3 (08:39→18:09)
[2017-12-03] MEDS: SODIUM HYPOCHLORITE 1/40% 1L IRRIG IRR ×2 (08:40→20:39)
[2017-12-03] MEDS: HEPARIN 5,000 UNIT/0.5 ML VIAL SC ×2 (08:46→21:00)
[2017-12-03] MEDS: NICOTINE (14 MG/24 HR) PATCH TRANSDERM (08:46)
[2017-12-03] MEDS: CARISOPRODOL 350 MG TAB PO (10:04)
[2017-12-03 16:28] LABS: ADD MAN DIFF? NO
[2017-12-03 16:32] LABS: BASOPHIL # 0.1 10^3/ul (0.0-0.1); BASOPHILS % 1.1 % (0.0-2.0); EOSINOPHILS # 0.2 10^3/ul (0.0-0.5); HEMATOCRIT 32.3 % (42.0-52.0); HEMOGLOBIN 10.3 g/dl (14.0-18.0); LYMPHOCYTES # 1.6 10^3/ul (0.8-2.9); LYMPHOCYTES % 24.3 % (15.0-51.0); MEAN CORPUSCULAR HEMOGLOBIN 30.5 pg (29.0-33.0); MEAN CORPUSCULAR HGB CONC 31.9 g/dl (32.0-37.0); MEAN CORPUSCULAR VOLUME 95.6 fl (82.0-101.0); MEAN PLATELET VOLUME 8.8 fl (7.4-10.4); MONOCYTE # 0.9 10^3/ul (0.3-0.9); NEUTROPHIL # 3.8 10^3/ul (1.6-7.5); NEUTROPHILS % 57.3 % (39.0-77.0); PLATELET COUNT 468 10^3/UL (140-415); RED BLOOD COUNT 3.38 10^6/ul (4.70-6.10)
[2017-12-03 16:32] LABS: WHITE BLOOD COUNT 6.6 10^3/ul (4.8-10.8)
[2017-12-03] MEDS ORDERED: LACTATED RINGER'S 1,000 ML IV (16:43)
[2017-12-03] MEDS: CEFAZOLIN 2 GM/50 ML (PMX) 50 ML IVPB ×2 (17:00→20:36)
[2017-12-03] MEDS: DAPTOMYCIN 700 MG in SOD CHLORIDE 0.9% 100 ML IVPB (21:57)
[2017-12-04] MEDS: LACTATED RINGER'S 1,000 ML IV ×2 (00:03→23:43)
[2017-12-04] MEDS: morphine 4 MG/ML VIAL IV ×4 (01:10→19:52)
[2017-12-04] MEDS: CALCIUM ACETATE 667 MG CAP NGT ×3 (08:15→18:00)
[2017-12-04] MEDS: CALCIUM CARBONATE 1.25 GM TAB PO ×3 (08:54→21:18)
[2017-12-04] MEDS: SODIUM HYPOCHLORITE 1/40% 1L IRRIG IRR ×2 (08:54→21:00)
[2017-12-04] MEDS: HEPARIN 5,000 UNIT/0.5 ML VIAL SC ×2 (08:54→21:27)
[2017-12-04] MEDS: AMLODIPINE 5 MG TAB PO (08:54)
[2017-12-04] MEDS: NICOTINE (14 MG/24 HR) PATCH TRANSDERM (08:55)
[2017-12-04 12:16] LABS: ANION GAP 15 (8-16); BLOOD UREA NITROGEN 26 mg/dl (7-20); CALCIUM 8.6 mg/dl (8.4-10.2); CARBON DIOXIDE 30 mmol/L (21-31); CHLORIDE 98 mmol/L (97-110); CREATININE 1.28 mg/dl (0.61-1.24); GLUCOSE 98 mg/dl (70-220); POTASSIUM 4.9 mmol/L (3.5-5.1); SODIUM 138 mmol/L (135-144)
[2017-12-04] MEDS ORDERED: PROPOFOL 20 ML (14:34)
[2017-12-04] MEDS ORDERED: FENTAnyl 50 MCG/ML VIAL (14:34)
[2017-12-04] MEDS ORDERED: ONDANSETRON 4 MG INJ (14:34)
[2017-12-04] MEDS ORDERED: MIDAZOLAM 1 MG/ML 2 ML INJ (14:34)
[2017-12-04] MEDS ORDERED: METOCLOPRAMIDE 10 MG INJ (14:34)
[2017-12-04] MEDS ORDERED: KETOROLAC 30 MG INJ ×2 (14:35→17:42)
[2017-12-04] MEDS ORDERED: CEFAZOLIN 1 GM INJ (14:55)
[2017-12-04] MEDS ORDERED: EPHEDrine SULFATE 50 MG/5 ML SYG (14:56)
[2017-12-04] MEDS ORDERED: ONDANSETRON 4 MG INJ IV (15:00)
[2017-12-04] MEDS ORDERED: HYDROmorphONE (0.2 MG/ML) 10ML SYG IV ×3 (15:00)
[2017-12-04] MEDS: BUPIVACAINE 0.25% (MPF) 30 ML INJ (15:50)
[2017-12-04] MEDS: BACITRACIN/POLYMYXIN 28.35 GM OINT TOP (15:50)
[2017-12-04] MEDS: MINERAL OIL LIGHT 10 ML VIAL (15:51)
[2017-12-04] MEDS: GENTAMICIN 80 MG INJ (15:51)
[2017-12-04] MEDS: MUPIROCIN 2% 15 GM CR (15:51)
[2017-12-04] MEDS: LIDOCAINE 1%/EPI 30 ML INJ (15:52)
[2017-12-04] MEDS: POLYMYXIN/BACITRACIN 1L IRRIG (15:52)
[2017-12-04] MEDS ORDERED: IBUPROFEN 400 MG TAB PO (18:30)
[2017-12-04] MEDS: DAPTOMYCIN 700 MG in SOD CHLORIDE 0.9% 100 ML IVPB (21:17)
[2017-12-05] MEDS: morphine 4 MG/ML VIAL IV ×5 (03:07→22:43)
[2017-12-05] MEDS: CALCIUM ACETATE 667 MG CAP NGT ×3 (08:16→18:31)
[2017-12-05] MEDS: CALCIUM CARBONATE 1.25 GM TAB PO ×3 (08:16→21:18)
[2017-12-05] MEDS: AMLODIPINE 5 MG TAB PO (08:18)
[2017-12-05] MEDS: HEPARIN 5,000 UNIT/0.5 ML VIAL SC ×2 (08:36→21:25)
[2017-12-05] MEDS: NICOTINE (14 MG/24 HR) PATCH TRANSDERM (08:37)
[2017-12-05] MEDS: SODIUM HYPOCHLORITE 1/40% 1L IRRIG IRR ×2 (08:37→21:00)
[2017-12-05 10:16] LABS: ADD MAN DIFF? NO
[2017-12-05 10:20] LABS: BASOPHIL # 0.1 10^3/ul (0.0-0.1); BASOPHILS % 0.6 % (0.0-2.0); EOSINOPHILS # 0.2 10^3/ul (0.0-0.5); EOSINOPHILS % 2.7 % (0.0-7.0); HEMATOCRIT 30.6 % (42.0-52.0); LYMPHOCYTES # 1.8 10^3/ul (0.8-2.9); LYMPHOCYTES % 20.8 % (15.0-51.0); MEAN CORPUSCULAR HGB CONC 32.7 g/dl (32.0-37.0); MEAN CORPUSCULAR VOLUME 94.7 fl (82.0-101.0); MEAN PLATELET VOLUME 8.5 fl (7.4-10.4); MONOCYTE # 0.9 10^3/ul (0.3-0.9); MONOCYTES % 10.7 % (0.0-11.0); NEUTROPHIL # 5.5 10^3/ul (1.6-7.5); NEUTROPHILS % 64.8 % (39.0-77.0); PLATELET COUNT 425 10^3/UL (140-415); RED BLOOD COUNT 3.23 10^6/ul (4.70-6.10); RED CELL DISTRIBUTION WIDTH 12.6 % (11.5-14.5)
[2017-12-05 10:20] LABS: WHITE BLOOD COUNT 8.4 10^3/ul (4.8-10.8)
[2017-12-05 10:58] LABS: PHOSPHORUS 5.3 mg/dl (2.5-4.9)
[2017-12-05 10:59] LABS: ANION GAP 17 (8-16); BLOOD UREA NITROGEN 26 mg/dl (7-20); CALCIUM 8.2 mg/dl (8.4-10.2); CARBON DIOXIDE 30 mmol/L (21-31); CHLORIDE 96 mmol/L (97-110); CREATININE 1.34 mg/dl (0.61-1.24); GLUCOSE 113 mg/dl (70-220); POTASSIUM 4.5 mmol/L (3.5-5.1); SODIUM 138 mmol/L (135-144)
[2017-12-05] MEDS: DAPTOMYCIN 700 MG in SOD CHLORIDE 0.9% 100 ML IVPB (21:19)
[2017-12-06] MEDS: LACTATED RINGER'S 1,000 ML IV
[2017-12-06] MEDS: morphine 4 MG/ML VIAL IV ×4 (02:56→20:15)
[2017-12-06] MEDS: CALCIUM ACETATE 667 MG CAP NGT ×3 (08:43→17:40)
[2017-12-06] MEDS: SODIUM HYPOCHLORITE 1/40% 1L IRRIG IRR ×2 (08:43→20:22)
[2017-12-06] MEDS: AMLODIPINE 5 MG TAB PO (08:44)
[2017-12-06] MEDS: NICOTINE (14 MG/24 HR) PATCH TRANSDERM (08:44)
[2017-12-06] MEDS: CARISOPRODOL 350 MG TAB PO ×2 (08:44→23:40)
[2017-12-06] MEDS: CALCIUM CARBONATE 1.25 GM TAB PO ×3 (08:44→20:15)
[2017-12-06] MEDS: HEPARIN 5,000 UNIT/0.5 ML VIAL SC ×2 (08:53→20:21)
[2017-12-06] MEDS: DAPTOMYCIN 700 MG in SOD CHLORIDE 0.9% 100 ML IVPB (21:47)
[2017-12-07] MEDS: morphine 4 MG/ML VIAL IV ×5 (02:19→20:09)
[2017-12-07] MEDS: CALCIUM ACETATE 667 MG CAP NGT ×3 (08:15→18:32)
[2017-12-07] MEDS: SODIUM HYPOCHLORITE 1/40% 1L IRRIG IRR ×2 (08:16→20:18)
[2017-12-07] MEDS: NICOTINE (14 MG/24 HR) PATCH TRANSDERM (08:16)
[2017-12-07] MEDS: AMLODIPINE 5 MG TAB PO (08:16)
[2017-12-07] MEDS: CALCIUM CARBONATE 1.25 GM TAB PO ×3 (08:16→20:08)
[2017-12-07] MEDS: HEPARIN 5,000 UNIT/0.5 ML VIAL SC ×2 (08:26→20:17)
[2017-12-07 10:46] LABS: CREATINE KINASE 268 IU/L (23-200)
[2017-12-07] MEDS: CARISOPRODOL 350 MG TAB PO (22:32)
[2017-12-08] MEDS: morphine 4 MG/ML VIAL IV ×5 (05:05→21:34)
[2017-12-08] MEDS: NICOTINE (14 MG/24 HR) PATCH TRANSDERM (09:00)
[2017-12-08] MEDS: SODIUM HYPOCHLORITE 1/40% 1L IRRIG IRR ×2 (09:00→21:00)
[2017-12-08] MEDS: CALCIUM CARBONATE 1.25 GM TAB PO ×3 (09:03→21:04)
[2017-12-08] MEDS: AMLODIPINE 5 MG TAB PO (09:03)
[2017-12-08] MEDS: CALCIUM ACETATE 667 MG CAP NGT ×3 (09:04→17:54)
[2017-12-08] MEDS: HEPARIN 5,000 UNIT/0.5 ML VIAL SC ×2 (09:34→21:05)
[2017-12-08 12:02] LABS: ADD MAN DIFF? NO
[2017-12-08 12:16] LABS: WHITE BLOOD COUNT 9.3 10^3/ul (4.8-10.8)
[2017-12-08 12:16] LABS: BASOPHIL # 0.1 10^3/ul (0.0-0.1); EOSINOPHILS # 0.8 10^3/ul (0.0-0.5); EOSINOPHILS % 8.1 % (0.0-7.0); HEMATOCRIT 32.1 % (42.0-52.0); HEMOGLOBIN 10.2 g/dl (14.0-18.0); LYMPHOCYTES # 1.7 10^3/ul (0.8-2.9); LYMPHOCYTES % 18.7 % (15.0-51.0); MEAN CORPUSCULAR HEMOGLOBIN 30.1 pg (29.0-33.0); MEAN CORPUSCULAR HGB CONC 31.8 g/dl (32.0-37.0); MEAN CORPUSCULAR VOLUME 94.7 fl (82.0-101.0); MEAN PLATELET VOLUME 8.7 fl (7.4-10.4); MONOCYTE # 0.8 10^3/ul (0.3-0.9); MONOCYTES % 9.1 % (0.0-11.0); NEUTROPHIL # 5.8 10^3/ul (1.6-7.5); NEUTROPHILS % 62.8 % (39.0-77.0); PLATELET COUNT 452 10^3/UL (140-415); RED BLOOD COUNT 3.39 10^6/ul (4.70-6.10); RED CELL DISTRIBUTION WIDTH 12.8 % (11.5-14.5)
[2017-12-08 12:33] LABS: ANION GAP 13 (8-16); BLOOD UREA NITROGEN 22 mg/dl (7-20); CALCIUM 9.1 mg/dl (8.4-10.2); CARBON DIOXIDE 32 mmol/L (21-31); CHLORIDE 98 mmol/L (97-110); CREATININE 1.23 mg/dl (0.61-1.24); GLUCOSE 109 mg/dl (70-220); POTASSIUM 4.9 mmol/L (3.5-5.1); SODIUM 138 mmol/L (135-144)
[2017-12-09] MEDS: morphine 4 MG/ML VIAL IV ×5 (02:17→20:40)
[2017-12-09] MEDS: NICOTINE (14 MG/24 HR) PATCH TRANSDERM (09:00)
[2017-12-09] MEDS: SODIUM HYPOCHLORITE 1/40% 1L IRRIG IRR ×2 (09:00→20:48)
[2017-12-09] MEDS: CALCIUM CARBONATE 1.25 GM TAB PO ×3 (09:22→20:40)
[2017-12-09] MEDS: CALCIUM ACETATE 667 MG CAP NGT ×3 (09:22→17:48)
[2017-12-09] MEDS: AMLODIPINE 5 MG TAB PO (09:22)
[2017-12-09] MEDS: HEPARIN 5,000 UNIT/0.5 ML VIAL SC ×2 (10:17→20:47)
[2017-12-10] MEDS: morphine 4 MG/ML VIAL IV ×6 (00:57→22:10)
[2017-12-10] MEDS: SODIUM HYPOCHLORITE 1/40% 1L IRRIG IRR ×2 (09:00→19:50)
[2017-12-10] MEDS: NICOTINE (14 MG/24 HR) PATCH TRANSDERM (09:00)
[2017-12-10] MEDS: CALCIUM ACETATE 667 MG CAP NGT ×3 (09:36→17:54)
[2017-12-10] MEDS: CALCIUM CARBONATE 1.25 GM TAB PO ×3 (09:36→20:59)
[2017-12-10] MEDS: AMLODIPINE 5 MG TAB PO (09:37)
[2017-12-10] MEDS: HEPARIN 5,000 UNIT/0.5 ML VIAL SC ×2 (09:44→21:02)
[2017-12-11] MEDS: morphine 4 MG/ML VIAL IV ×5 (05:56→22:22)
[2017-12-11] MEDS: SODIUM HYPOCHLORITE 1/40% 1L IRRIG IRR ×2 (08:10→21:13)
[2017-12-11] MEDS: CALCIUM CARBONATE 1.25 GM TAB PO ×3 (08:10→21:12)
[2017-12-11] MEDS: CALCIUM ACETATE 667 MG CAP NGT ×3 (08:10→18:15)
[2017-12-11] MEDS: NICOTINE (14 MG/24 HR) PATCH TRANSDERM (08:11)
[2017-12-11] MEDS: AMLODIPINE 5 MG TAB PO (08:11)
[2017-12-11] MEDS: HEPARIN 5,000 UNIT/0.5 ML VIAL SC ×2 (08:15→21:14)
[2017-12-12] MEDS: morphine 4 MG/ML VIAL IV ×5 (05:51→23:14)
[2017-12-12] MEDS: CALCIUM CARBONATE 1.25 GM TAB PO ×3 (08:40→21:12)
[2017-12-12] MEDS: CALCIUM ACETATE 667 MG CAP NGT ×3 (08:40→17:53)
[2017-12-12] MEDS: AMLODIPINE 5 MG TAB PO (08:40)
[2017-12-12] MEDS: HEPARIN 5,000 UNIT/0.5 ML VIAL SC ×2 (08:41→21:16)
[2017-12-12] MEDS: NICOTINE (14 MG/24 HR) PATCH TRANSDERM (08:44)
[2017-12-12] MEDS: SODIUM HYPOCHLORITE 1/40% 1L IRRIG IRR ×2 (08:45→21:00)
[2017-12-12 13:51] LABS: ALANINE AMINOTRANSFERASE 44 IU/L (13-69); ALBUMIN 3.7 g/dl (3.3-4.9); ALKALINE PHOSPHATASE 96 IU/L (42-121); ASPARTATE AMINO TRANSFERASE 55 IU/L (15-46); BLOOD UREA NITROGEN 34 mg/dl (7-20); CALCIUM 9.6 mg/dl (8.4-10.2); CARBON DIOXIDE 27 mmol/L (21-31); CHLORIDE 98 mmol/L (97-110); CREATININE 1.32 mg/dl (0.61-1.24); GLUCOSE 120 mg/dl (70-220); SODIUM 137 mmol/L (135-144); TOTAL PROTEIN 7.8 g/dl (6.1-8.1)
[2017-12-12 13:55] LABS: ANION GAP 17 (8-16)
[2017-12-13] MEDS: morphine 4 MG/ML VIAL IV ×4 (03:25→18:24)
[2017-12-13] MEDS: SODIUM HYPOCHLORITE 1/40% 1L IRRIG IRR (05:33)
[2017-12-13] MEDS: NICOTINE (14 MG/24 HR) PATCH TRANSDERM (08:33)
[2017-12-13] MEDS: CALCIUM CARBONATE 1.25 GM TAB PO ×3 (08:35→21:04)
[2017-12-13] MEDS: AMLODIPINE 5 MG TAB PO (08:35)
[2017-12-13] MEDS: CALCIUM ACETATE 667 MG CAP NGT ×3 (08:35→18:23)
[2017-12-13] MEDS: HEPARIN 5,000 UNIT/0.5 ML VIAL SC ×2 (08:38→21:26)
[2017-12-13] MEDS: CARISOPRODOL 350 MG TAB PO ×2 (13:38→21:24)
[2017-12-14] MEDS: morphine 4 MG/ML VIAL IV ×5 (02:44→22:36)
[2017-12-14] MEDS: SODIUM HYPOCHLORITE 1/40% 1L IRRIG IRR ×2 (02:45→08:28)
[2017-12-14] MEDS: CARISOPRODOL 350 MG TAB PO (04:27)
[2017-12-14] MEDS: AMLODIPINE 5 MG TAB PO (08:27)
[2017-12-14] MEDS: CALCIUM ACETATE 667 MG CAP NGT ×3 (08:27→16:53)
[2017-12-14] MEDS: CALCIUM CARBONATE 1.25 GM TAB PO ×3 (08:27→20:41)
[2017-12-14] MEDS: NICOTINE (14 MG/24 HR) PATCH TRANSDERM ×4 (08:27→09:28)
[2017-12-14] MEDS: HEPARIN 5,000 UNIT/0.5 ML VIAL SC ×2 (08:42→20:42)
[2017-12-15] MEDS: CARISOPRODOL 350 MG TAB PO (01:32)
[2017-12-15] MEDS: morphine 4 MG/ML VIAL IV ×5 (05:13→21:20)
[2017-12-15] MEDS: SODIUM HYPOCHLORITE 1/40% 1L IRRIG IRR ×4 (05:13→21:24)
[2017-12-15] MEDS: CALCIUM CARBONATE 1.25 GM TAB PO ×3 (08:38→21:20)
[2017-12-15] MEDS: CALCIUM ACETATE 667 MG CAP NGT ×3 (08:38→17:22)
[2017-12-15] MEDS: AMLODIPINE 5 MG TAB PO (08:39)
[2017-12-15] MEDS: NICOTINE (14 MG/24 HR) PATCH TRANSDERM (08:39)
[2017-12-15] MEDS: HEPARIN 5,000 UNIT/0.5 ML VIAL SC ×2 (08:56→21:21)
[2017-12-16] MEDS: morphine 4 MG/ML VIAL IV ×4 (04:21→20:36)
[2017-12-16] MEDS: NICOTINE (14 MG/24 HR) PATCH TRANSDERM (09:00)
[2017-12-16] MEDS: CALCIUM ACETATE 667 MG CAP NGT ×3 (10:07→18:42)
[2017-12-16] MEDS: AMLODIPINE 5 MG TAB PO (10:07)
[2017-12-16] MEDS: CALCIUM CARBONATE 1.25 GM TAB PO ×3 (10:07→20:33)
[2017-12-16] MEDS: SODIUM HYPOCHLORITE 1/40% 1L IRRIG IRR ×2 (10:08→21:00)
[2017-12-16] MEDS: HEPARIN 5,000 UNIT/0.5 ML VIAL SC ×2 (10:12→20:35)
[2017-12-16 10:53] LABS: ADD MAN DIFF? NO
[2017-12-16 11:22] LABS: ALANINE AMINOTRANSFERASE 40 IU/L (13-69); ALBUMIN 3.4 g/dl (3.3-4.9); ALBUMIN/GLOBULIN RATIO 0.82; ALKALINE PHOSPHATASE 77 IU/L (42-121); ANION GAP 16 (8-16); ASPARTATE AMINO TRANSFERASE 37 IU/L (15-46); BLOOD UREA NITROGEN 24 mg/dl (7-20); CALCIUM 8.9 mg/dl (8.4-10.2); CARBON DIOXIDE 24 mmol/L (21-31); CHLORIDE 99 mmol/L (97-110); CREATININE 1.26 mg/dl (0.61-1.24); GLUCOSE 118 mg/dl (70-220); POTASSIUM 4.3 mmol/L (3.5-5.1); SODIUM 135 mmol/L (135-144); TOTAL PROTEIN 7.5 g/dl (6.1-8.1)
[2017-12-16 13:03] LABS: WHITE BLOOD COUNT 11.5 10^3/ul (4.8-10.8)
[2017-12-16 13:03] LABS: BASOPHIL # 0.1 10^3/ul (0.0-0.1); BASOPHILS % 0.5 % (0.0-2.0); EOSINOPHILS # 0.5 10^3/ul (0.0-0.5); EOSINOPHILS % 4.4 % (0.0-7.0); HEMATOCRIT 31.6 % (42.0-52.0); HEMOGLOBIN 10.3 g/dl (14.0-18.0); LYMPHOCYTES # 1.6 10^3/ul (0.8-2.9); LYMPHOCYTES % 14.1 % (15.0-51.0); MEAN CORPUSCULAR HEMOGLOBIN 30.7 pg (29.0-33.0); MEAN CORPUSCULAR HGB CONC 32.6 g/dl (32.0-37.0); MEAN CORPUSCULAR VOLUME 94.3 fl (82.0-101.0); MEAN PLATELET VOLUME 8.7 fl (7.4-10.4); MONOCYTES % 8.9 % (0.0-11.0); NEUTROPHIL # 8.3 10^3/ul (1.6-7.5); NEUTROPHILS % 71.7 % (39.0-77.0); PLATELET COUNT 415 10^3/UL (140-415); RED BLOOD COUNT 3.35 10^6/ul (4.70-6.10)
[2017-12-17] MEDS: CARISOPRODOL 350 MG TAB PO (00:05)
[2017-12-17] MEDS: SODIUM HYPOCHLORITE 1/40% 1L IRRIG IRR ×3 (05:59→20:23)
[2017-12-17] MEDS: morphine 4 MG/ML VIAL IV ×4 (06:00→20:23)
[2017-12-17] MEDS: CALCIUM CARBONATE 1.25 GM TAB PO ×3 (08:32→20:22)
[2017-12-17] MEDS: CALCIUM ACETATE 667 MG CAP NGT ×3 (08:32→17:30)
[2017-12-17] MEDS: NICOTINE (14 MG/24 HR) PATCH TRANSDERM (08:33)
[2017-12-17] MEDS: AMLODIPINE 5 MG TAB PO (08:33)
[2017-12-17] MEDS: HEPARIN 5,000 UNIT/0.5 ML VIAL SC ×2 (08:39→20:23)
[2017-12-18] MEDS: morphine 4 MG/ML VIAL IV ×3 (00:26→23:16)
[2017-12-18] MEDS: SODIUM HYPOCHLORITE 1/40% 1L IRRIG IRR ×3 (06:05→20:27)
[2017-12-18] MEDS ORDERED: EPHEDrine SULFATE 50 MG/5 ML SYG IV ×2 (06:30→16:30)
[2017-12-18] MEDS ORDERED: FENTAnyl 50 MCG/ML VIAL IV ×5 (06:30→16:30)
[2017-12-18] MEDS ORDERED: OXYCODONE/ACETAMINOPHEN (5/325) TAB PO ×4 (06:30→16:30)
[2017-12-18] MEDS ORDERED: morphine (1 MG/ML) 10ML SYRINGE IV ×3 (06:30)
[2017-12-18] MEDS ORDERED: LABETALOL HCL 20MG INJ IV ×2 (06:30→16:30)
[2017-12-18] MEDS ORDERED: MIDAZOLAM 1 MG/ML 2 ML INJ IV (06:30)
[2017-12-18] MEDS ORDERED: hydrALAzine 20 MG INJ IV ×2 (06:30→16:30)
[2017-12-18] MEDS ORDERED: DIPHENHYDRAMINE 50 MG INJ IV ×2 (06:30→16:30)
[2017-12-18] MEDS ORDERED: ONDANSETRON 4 MG INJ IV ×2 (06:30→16:30)
[2017-12-18] MEDS ORDERED: MEPERIDINE 25 MG INJ IV ×2 (06:30→16:30)
[2017-12-18] MEDS ORDERED: HYDROmorphONE (0.2 MG/ML) 10ML SYG IV ×6 (06:30→16:30)
[2017-12-18] MEDS ORDERED: ATROPINE 1 MG/10 ML SYRINGE IV (06:30)
[2017-12-18] MEDS ORDERED: CEFAZOLIN 1 GM INJ (07:00)
[2017-12-18] MEDS: CALCIUM ACETATE 667 MG CAP NGT ×3 (08:15→18:00)
[2017-12-18] MEDS: HEPARIN 5,000 UNIT/0.5 ML VIAL SC ×2 (09:00→20:33)
[2017-12-18] MEDS: CALCIUM CARBONATE 1.25 GM TAB PO ×3 (09:00→20:32)
[2017-12-18] MEDS: NICOTINE (14 MG/24 HR) PATCH TRANSDERM (09:00)
[2017-12-18] MEDS: AMLODIPINE 5 MG TAB PO (10:52)
[2017-12-18] MEDS ORDERED: FENTAnyl 50 MCG/ML VIAL ×2 (14:49→16:07)
[2017-12-18] MEDS ORDERED: MIDAZOLAM 1 MG/ML 2 ML INJ (14:49)
[2017-12-18] MEDS ORDERED: ROCURONIUM 50 MG INJ (14:49)
[2017-12-18] MEDS ORDERED: NEOSTIGMINE 3 MG/3 ML SYRINGE (14:49)
[2017-12-18] MEDS ORDERED: GLYCOPYRROLATE 0.4 MG INJ (14:49)
[2017-12-18] MEDS ORDERED: PROPOFOL 20 ML (14:49)
[2017-12-18] MEDS ORDERED: DEXAMETHASONE 4 MG/ML 1 ML INJ (14:50)
[2017-12-18] MEDS ORDERED: ONDANSETRON 4 MG INJ (14:50)
[2017-12-18] MEDS ORDERED: BUPIVACAINE 0.25% (MPF) 30 ML INJ ×2 (15:00→17:48)
[2017-12-18] MEDS ORDERED: LIDOCAINE 1%/EPI 30 ML INJ ×2 (15:00→17:48)
[2017-12-18] MEDS ORDERED: MUPIROCIN 2% 15 GM CR (15:01)
[2017-12-18] MEDS ORDERED: POLYMYXIN/BACITRACIN 1L IRRIG (15:01)
[2017-12-18] MEDS ORDERED: GENTAMICIN 80 MG INJ (15:11)
[2017-12-18] MEDS ORDERED: METOCLOPRAMIDE 10 MG INJ IV (16:30)
[2017-12-18] MEDS ORDERED: MINERAL OIL LIGHT 10 ML VIAL (16:30)
[2017-12-18] MEDS: LIDOCAINE 1%/EPI 30 ML INJ INJ (16:43)
[2017-12-18] MEDS: BUPIVACAINE 0.25% (MPF) 30 ML INJ INJ (16:43)
[2017-12-18] MEDS: POLYMYXIN/BACITRACIN 1L IRRIG IRR (16:44)
[2017-12-18] MEDS: MUPIROCIN 2% 15 GM CR TOP (16:45)
[2017-12-18] MEDS ORDERED: KETOROLAC 30 MG INJ (17:39)
[2017-12-18] MEDS ORDERED: SUGAMMADEX SODIUM 200 MG/2 ML VIAL IV (17:41)
[2017-12-18] MEDS ORDERED: HYDROmorphONE 2 MG/ML SYG (18:06)
[2017-12-19] MEDS: CALCIUM ACETATE 667 MG CAP NGT ×3 (08:54→18:27)
[2017-12-19] MEDS: CALCIUM CARBONATE 1.25 GM TAB PO ×3 (08:54→21:03)
[2017-12-19] MEDS: AMLODIPINE 5 MG TAB PO (08:55)
[2017-12-19] MEDS: NICOTINE (14 MG/24 HR) PATCH TRANSDERM (08:57)
[2017-12-19] MEDS: morphine 4 MG/ML VIAL IV ×3 (08:57→19:37)
[2017-12-19] MEDS: SODIUM HYPOCHLORITE 1/40% 1L IRRIG IRR ×2 (09:00→19:58)
[2017-12-19] MEDS: HEPARIN 5,000 UNIT/0.5 ML VIAL SC ×2 (09:03→21:04)
[2017-12-19 10:56] LABS: ADD MAN DIFF? NO
[2017-12-19 11:07] LABS: BASOPHILS % 0.1 % (0.0-2.0); HEMATOCRIT 32.2 % (42.0-52.0); HEMOGLOBIN 10.3 g/dl (14.0-18.0); LYMPHOCYTES # 1.4 10^3/ul (0.8-2.9); LYMPHOCYTES % 7.5 % (15.0-51.0); MEAN CORPUSCULAR HEMOGLOBIN 30.6 pg (29.0-33.0); MEAN CORPUSCULAR VOLUME 95.5 fl (82.0-101.0); MEAN PLATELET VOLUME 8.7 fl (7.4-10.4); MONOCYTE # 1.3 10^3/ul (0.3-0.9); NEUTROPHIL # 15.7 10^3/ul (1.6-7.5); PLATELET COUNT 413 10^3/UL (140-415); RED BLOOD COUNT 3.37 10^6/ul (4.70-6.10); RED CELL DISTRIBUTION WIDTH 12.8 % (11.5-14.5)
[2017-12-19 11:07] LABS: WHITE BLOOD COUNT 18.5 10^3/ul (4.8-10.8)
[2017-12-19 11:27] LABS: ALANINE AMINOTRANSFERASE 33 IU/L (13-69); ALBUMIN 3.6 g/dl (3.3-4.9); ALKALINE PHOSPHATASE 76 IU/L (42-121); ANION GAP 17 (8-16); ASPARTATE AMINO TRANSFERASE 29 IU/L (15-46); BLOOD UREA NITROGEN 29 mg/dl (7-20); CALCIUM 8.8 mg/dl (8.4-10.2); CARBON DIOXIDE 28 mmol/L (21-31); CHLORIDE 98 mmol/L (97-110); CREATININE 1.28 mg/dl (0.61-1.24); GLUCOSE 127 mg/dl (70-220); POTASSIUM 4.7 mmol/L (3.5-5.1); SODIUM 138 mmol/L (135-144); TOTAL PROTEIN 7.6 g/dl (6.1-8.1)
[2017-12-20] MEDS: morphine 4 MG/ML VIAL IV ×5 (01:37→18:24)
[2017-12-20] MEDS: CALCIUM ACETATE 667 MG CAP NGT ×3 (08:09→18:15)
[2017-12-20] MEDS: NICOTINE (14 MG/24 HR) PATCH TRANSDERM (09:00)
[2017-12-20] MEDS: SODIUM HYPOCHLORITE 1/40% 1L IRRIG IRR ×2 (09:00→21:00)
[2017-12-20] MEDS: CALCIUM CARBONATE 1.25 GM TAB PO ×3 (09:26→20:33)
[2017-12-20] MEDS: HEPARIN 5,000 UNIT/0.5 ML VIAL SC ×2 (09:29→20:35)
[2017-12-20] MEDS: AMLODIPINE 5 MG TAB PO (09:31)
[2017-12-20] MEDS: HYDROCODONE/APAP (7.5/325) TAB PO (13:05)
[2017-12-21] MEDS: morphine 4 MG/ML VIAL IV ×5 (01:54→19:56)
[2017-12-21] MEDS: NICOTINE (14 MG/24 HR) PATCH TRANSDERM (08:52)
[2017-12-21] MEDS: CALCIUM ACETATE 667 MG CAP NGT ×3 (08:59→17:07)
[2017-12-21] MEDS: AMLODIPINE 5 MG TAB PO (08:59)
[2017-12-21] MEDS: CALCIUM CARBONATE 1.25 GM TAB PO ×3 (08:59→19:55)
[2017-12-21] MEDS: SODIUM HYPOCHLORITE 1/40% 1L IRRIG IRR ×2 (09:00→21:00)
[2017-12-21] MEDS: HYDROCODONE/APAP (7.5/325) TAB PO ×3 (09:00→18:46)
[2017-12-21] MEDS: HEPARIN 5,000 UNIT/0.5 ML VIAL SC ×2 (09:14→19:57)
[2017-12-22] MEDS: morphine 4 MG/ML VIAL IV ×5 (00:16→21:37)
[2017-12-22] MEDS: HYDROCODONE/APAP (7.5/325) TAB PO ×2 (08:32→11:56)
[2017-12-22] MEDS: CALCIUM CARBONATE 1.25 GM TAB PO ×3 (08:32→21:35)
[2017-12-22] MEDS: CALCIUM ACETATE 667 MG CAP NGT ×3 (08:32→17:33)
[2017-12-22] MEDS: AMLODIPINE 5 MG TAB PO (08:32)
[2017-12-22] MEDS: SODIUM HYPOCHLORITE 1/40% 1L IRRIG IRR ×2 (08:33→21:00)
[2017-12-22] MEDS: NICOTINE (14 MG/24 HR) PATCH TRANSDERM (08:33)
[2017-12-22] MEDS: HEPARIN 5,000 UNIT/0.5 ML VIAL SC ×2 (08:49→21:37)
[2017-12-23] MEDS: morphine 4 MG/ML VIAL IV ×6 (01:39→23:07)
[2017-12-23 02:24] LABS: CANNABINOIDS Negative (NEGATIVE)
[2017-12-23 02:31] LABS: BARBITURATES Negative (NEGATIVE); BENZODIAZEPINES Negative (NEGATIVE); COCAINE Negative (NEGATIVE); OPIATES Positive (NEGATIVE)
[2017-12-23 02:35] LABS: AMPHETAMINE/METHAMPHETAMINE Positive (NEGATIVE)
[2017-12-23] MEDS: AMLODIPINE 5 MG TAB PO (08:47)
[2017-12-23] MEDS: CALCIUM ACETATE 667 MG CAP NGT ×3 (08:47→17:44)
[2017-12-23] MEDS: CALCIUM CARBONATE 1.25 GM TAB PO ×3 (08:47→20:55)
[2017-12-23] MEDS: SODIUM HYPOCHLORITE 1/40% 1L IRRIG IRR ×2 (08:48→20:56)
[2017-12-23] MEDS: NICOTINE (14 MG/24 HR) PATCH TRANSDERM (08:48)
[2017-12-23] MEDS: HEPARIN 5,000 UNIT/0.5 ML VIAL SC ×2 (08:52→21:00)
[2017-12-23 10:44] LABS: ADD MAN DIFF? NO
[2017-12-23 10:59] LABS: WHITE BLOOD COUNT 11.2 10^3/ul (4.8-10.8)
[2017-12-23 10:59] LABS: BASOPHIL # 0.1 10^3/ul (0.0-0.1); BASOPHILS % 0.5 % (0.0-2.0); EOSINOPHILS # 0.6 10^3/ul (0.0-0.5); EOSINOPHILS % 4.9 % (0.0-7.0); HEMATOCRIT 33.3 % (42.0-52.0); HEMOGLOBIN 10.8 g/dl (14.0-18.0); LYMPHOCYTES # 1.9 10^3/ul (0.8-2.9); LYMPHOCYTES % 16.9 % (15.0-51.0); MEAN CORPUSCULAR HEMOGLOBIN 30.4 pg (29.0-33.0); MEAN CORPUSCULAR HGB CONC 32.4 g/dl (32.0-37.0); MEAN CORPUSCULAR VOLUME 93.8 fl (82.0-101.0); MONOCYTE # 0.8 10^3/ul (0.3-0.9); MONOCYTES % 7.2 % (0.0-11.0); NEUTROPHIL # 7.9 10^3/ul (1.6-7.5); NEUTROPHILS % 70.1 % (39.0-77.0); PLATELET COUNT 385 10^3/UL (140-415); RED BLOOD COUNT 3.55 10^6/ul (4.70-6.10); RED CELL DISTRIBUTION WIDTH 13.2 % (11.5-14.5)
[2017-12-24] MEDS: morphine 4 MG/ML VIAL IV ×3 (03:31→13:06)
[2017-12-24] MEDS: CALCIUM ACETATE 667 MG CAP NGT ×3 (08:21→18:20)
[2017-12-24] MEDS: CALCIUM CARBONATE 1.25 GM TAB PO ×3 (08:21→20:59)
[2017-12-24] MEDS: AMLODIPINE 5 MG TAB PO (08:21)
[2017-12-24] MEDS: HEPARIN 5,000 UNIT/0.5 ML VIAL SC ×2 (08:22→21:02)
[2017-12-24] MEDS: NICOTINE (14 MG/24 HR) PATCH TRANSDERM (08:26)
[2017-12-24] MEDS: SODIUM HYPOCHLORITE 1/40% 1L IRRIG IRR ×2 (08:27→20:43)
[2017-12-24] MEDS ORDERED: morphine LIQ (20 MG/ML PO SYG) PO (15:00)
[2017-12-24] MEDS: morphine LIQ (10 MG/5 ML) CUP PO ×2 (17:07→21:25)
[2017-12-25] MEDS: morphine LIQ (10 MG/5 ML) CUP PO ×6 (01:26→23:22)
[2017-12-25] MEDS: NICOTINE (14 MG/24 HR) PATCH TRANSDERM (08:24)
[2017-12-25] MEDS: SODIUM HYPOCHLORITE 1/40% 1L IRRIG IRR ×2 (08:24→20:38)
[2017-12-25] MEDS: AMLODIPINE 5 MG TAB PO (08:30)
[2017-12-25] MEDS: CALCIUM CARBONATE 1.25 GM TAB PO ×3 (08:30→20:37)
[2017-12-25] MEDS: CALCIUM ACETATE 667 MG CAP NGT ×3 (08:30→18:30)
[2017-12-25] MEDS: HEPARIN 5,000 UNIT/0.5 ML VIAL SC ×2 (08:35→20:40)
[2017-12-26] MEDS: morphine LIQ (10 MG/5 ML) CUP PO ×5 (04:25→22:31)
[2017-12-26] MEDS: AMLODIPINE 5 MG TAB PO (08:42)
[2017-12-26] MEDS: CALCIUM ACETATE 667 MG CAP NGT ×3 (08:43→17:56)
[2017-12-26] MEDS: NICOTINE (14 MG/24 HR) PATCH TRANSDERM (08:43)
[2017-12-26] MEDS: SODIUM HYPOCHLORITE 1/40% 1L IRRIG IRR ×2 (08:43→21:36)
[2017-12-26] MEDS: CALCIUM CARBONATE 1.25 GM TAB PO ×3 (08:43→21:34)
[2017-12-26] MEDS: HEPARIN 5,000 UNIT/0.5 ML VIAL SC ×2 (08:50→21:34)
[2017-12-27] MEDS: morphine LIQ (10 MG/5 ML) CUP PO ×5 (03:31→21:05)
[2017-12-27] MEDS: CALCIUM ACETATE 667 MG CAP NGT ×3 (08:26→18:51)
[2017-12-27] MEDS: CALCIUM CARBONATE 1.25 GM TAB PO ×3 (08:27→21:05)
[2017-12-27] MEDS: AMLODIPINE 5 MG TAB PO (08:29)
[2017-12-27] MEDS: HEPARIN 5,000 UNIT/0.5 ML VIAL SC ×2 (08:29→21:00)
[2017-12-27] MEDS: SODIUM HYPOCHLORITE 1/40% 1L IRRIG IRR ×2 (08:29→21:07)
[2017-12-27] MEDS: NICOTINE (14 MG/24 HR) PATCH TRANSDERM ×2 (08:30→09:00)
[2017-12-28] MEDS: morphine LIQ (10 MG/5 ML) CUP PO ×5 (03:16→21:30)
[2017-12-28] MEDS: SODIUM HYPOCHLORITE 1/40% 1L IRRIG IRR ×2 (08:55→20:11)
[2017-12-28] MEDS: CALCIUM CARBONATE 1.25 GM TAB PO ×3 (08:55→20:11)
[2017-12-28] MEDS: CALCIUM ACETATE 667 MG CAP NGT ×3 (08:55→17:17)
[2017-12-28] MEDS: AMLODIPINE 5 MG TAB PO (08:55)
[2017-12-28] MEDS: HEPARIN 5,000 UNIT/0.5 ML VIAL SC ×2 (09:00→20:12)
[2017-12-28] MEDS: NICOTINE (14 MG/24 HR) PATCH TRANSDERM (09:00)
[2017-12-28] MEDS: CARISOPRODOL 350 MG TAB PO (17:14)
[2017-12-29] MEDS: morphine LIQ (10 MG/5 ML) CUP PO ×3 (02:00→11:47)
[2017-12-29] MEDS: SODIUM HYPOCHLORITE 1/40% 1L IRRIG IRR ×2 (05:58→09:04)
[2017-12-29] MEDS: NICOTINE (14 MG/24 HR) PATCH TRANSDERM (09:00)
[2017-12-29] MEDS: HEPARIN 5,000 UNIT/0.5 ML VIAL SC (09:00)
[2017-12-29] MEDS: AMLODIPINE 5 MG TAB PO (09:03)
[2017-12-29] MEDS: CALCIUM ACETATE 667 MG CAP NGT ×2 (09:03→12:51)
[2017-12-29] MEDS: CALCIUM CARBONATE 1.25 GM TAB PO ×2 (09:03→12:51)
== END 2017-12-29 14:55 | disposition home or self-care (01) | DRG 853 ==
LOC: E/R 09:02 → MS2 10:27
PROC: 0KBT0ZZ Excision of Left Lower Leg Muscle, Open Approach (ICD-10-PCS; principal; 2017-11-14 08:52)
PROC: 0KBT0ZZ Excision of Left Lower Leg Muscle, Open Approach (ICD-10-PCS; 2017-11-14 08:52)
PROC: 0JXP0ZC Transfer Left Lower Leg Subcutaneous Tissue and Fascia with Skin, Subcutaneous Tissue and Fascia, Open Approach (ICD-10-PCS; 2017-11-14 08:52)
PROC: 0HXLXZZ Transfer Left Lower Leg Skin, External Approach (ICD-10-PCS; 2017-11-14 08:52)
PROC: 0HRLX74 Replacement of Left Lower Leg Skin with Autologous Tissue Substitute, Partial Thickness, External Approach (ICD-10-PCS; 2017-11-14 08:52)
PROC: 0KBT0ZZ Excision of Left Lower Leg Muscle, Open Approach (ICD-10-PCS; 2017-11-14 08:52)
PROC: 0HRLX74 Replacement of Left Lower Leg Skin with Autologous Tissue Substitute, Partial Thickness, External Approach (ICD-10-PCS; 2017-11-14 08:52)
PROC: 0HBJXZZ Excision of Left Upper Leg Skin, External Approach (ICD-10-PCS; 2017-11-14 08:52)
PROC: 0HBJXZZ Excision of Left Upper Leg Skin, External Approach (ICD-10-PCS; 2017-11-14 08:52)
DX: A41.9 Sepsis, unspecified organism (principal); N17.0 Acute kidney failure with tubular necrosis; E87.2 Acidosis; I70.262 Atherosclerosis of native arteries of extremities with gangrene, left leg; E87.0 Hyperosmolality and hypernatremia; L03.116 Cellulitis of left lower limb; L97.823 Non-pressure chronic ulcer of other part of left lower leg with necrosis of muscle; B19.10 Unspecified viral hepatitis B without hepatic coma; B37.49 Other urogenital candidiasis; R65.20 Severe sepsis without septic shock; M25.462 Effusion, left knee; M71.22 Synovial cyst of popliteal space [Baker], left knee; F11.90 Opioid use, unspecified, uncomplicated; E87.6 Hypokalemia; L03.032 Cellulitis of left toe; R73.9 Hyperglycemia, unspecified; Z59.0 Homelessness; R60.0 Localized edema; I77.1 Stricture of artery; B19.20 Unspecified viral hepatitis C without hepatic coma; E88.09 Other disorders of plasma-protein metabolism, not elsewhere classified; Z72.0 Tobacco use; M60.9 Myositis, unspecified; B95.0 Streptococcus, group A, as the cause of diseases classified elsewhere; A49.01 Methicillin susceptible Staphylococcus aureus infection, unspecified site
CPT/HCPCS: 36415; 71010; 71045; 73700; 73718; 76700; 76775; 80048; 80053; 80202; 80307; 81001; 81003; 82550; 82553; 82565; 82570; 83036; 83605; 83690; 83735; 84100; 84155; 84300; 84484; 84520; 85025; 85610; 85651; 85730; 86140; 86704; 86709; 86803; 87040; 87070; 87075; 87081; 87086; 87340; 88304; 89190; 90686; 93005; 93922; 93971; 96365; 96366; 96372; 96375; 97110; 97116; 97163; 97530; 97542; 99291-25

== ENCOUNTER 2018-01-12 12:33 | Inpatient (IN) | payer OTHER ==
[2018-01-12] MEDS: PIPER-TAZO 3.375 GM IV (PMX) 100 ML IVPB ×2 (16:16→19:27)
[2018-01-12] MEDS ORDERED: ACETAMINOPHEN 325 MG TAB PO ×2 (17:00→17:30)
[2018-01-12] MEDS ORDERED: ONDANSETRON 4 MG INJ IV ×2 (17:00→17:30)
[2018-01-12 17:16] LABS: WHITE BLOOD COUNT 33.1 10^3/ul (4.8-10.8)
[2018-01-12 17:16] LABS: ABNORMAL IP MESSAGE 1; HEMATOCRIT 29.3 % (42.0-52.0); MEAN CORPUSCULAR HEMOGLOBIN 30.3 pg (29.0-33.0); MEAN CORPUSCULAR HGB CONC 34.1 g/dl (32.0-37.0); MEAN CORPUSCULAR VOLUME 88.8 fl (82.0-101.0); MEAN PLATELET VOLUME 8.1 fl (7.4-10.4); PLATELET COUNT 440 10^3/UL (140-415); POSITIVE DIFF @See below; RED CELL DISTRIBUTION WIDTH 13.9 % (11.5-14.5)
[2018-01-12 17:19] LABS: ADD MAN DIFF? YES
[2018-01-12 17:29] LABS: INR 1.01; PROTIME 13.4 Sec (11.9-14.9)
[2018-01-12 17:30] LABS: PARTIAL THROMBOPLASTIN TIME 29.1 Sec (25.0-35.0)
[2018-01-12] MEDS ORDERED: NACL 0.9% 3 ML SYG IV (17:30)
[2018-01-12] MEDS ORDERED: VANCOMYCIN IV PER PHARMACY XX (17:30)
[2018-01-12] MEDS ORDERED: DOCUSATE SODIUM 100 MG CAP PO (17:30)
[2018-01-12] MEDS ORDERED: ACETAMINOPHEN 650 MG SUPP PR (17:30)
[2018-01-12 17:34] LABS: LACTIC ACID 1.2 mmol/L (0.5-2.0)
[2018-01-12 17:39] LABS: BAND NEUTROPHILS #M 0.6 10^3/ul (0.0-0.6); BAND NEUTROPHILS % (M) 2 % (0-4); BASOPHIL #M 0.3 10^3/ul (0.0-0.0); BASOPHILS % (M) 1 % (0-2); GIANT THROMBO% (M) 1 % (0-0); LYMPHOCYTES #M 0.6 10^3/ul (0.8-2.9); LYMPHOCYTES % (M) 2 % (15-51); METAMYELOCYTES #M 0.6 10^3/ul (0.0-0.0); METAMYELOCYTES %M 2 % (0-0); MONOCYTE #M 0.6 10^3/ul (0.3-0.9); MONOCYTES % (M) 2 % (0-11); MYELOCYTES #M 0.3 10^3/ul (0.0-0.0); MYELOCYTES % (M) 1 % (0-0); PLATELET ESTIMATE NORMAL; SEGMENTED NEUTROPHILS (M) % 90 % (39-77); SMUDGE%M 5 % (0-0)
[2018-01-12 17:42] LABS: ALANINE AMINOTRANSFERASE 38 IU/L (13-69); ALBUMIN 2.5 g/dl (3.3-4.9); ALKALINE PHOSPHATASE 65 IU/L (42-121); ANION GAP 10 (8-16); ASPARTATE AMINO TRANSFERASE 31 IU/L (15-46); BLOOD UREA NITROGEN 10 mg/dl (7-20); CALCIUM 7.7 mg/dl (8.4-10.2); CARBON DIOXIDE 25 mmol/L (21-31); CHLORIDE 100 mmol/L (97-110); CREATININE 0.78 mg/dl (0.61-1.24); GLUCOSE 101 mg/dl (70-220); POTASSIUM 3.7 mmol/L (3.5-5.1); SODIUM 131 mmol/L (135-144); TOTAL PROTEIN 5.6 g/dl (6.1-8.1)
[2018-01-12 17:46] LABS: TROPONIN-I < 0.012 ng/ml (0.00-0.12)
[2018-01-12 18:21] LABS: ADD UMIC YES; UR ASCORBIC ACID NEGATIVE (NEGATIVE); UR BACTERIA FEW /HPF (NONE SEEN); UR BILIRUBIN (Dip) NEGATIVE (NEGATIVE); UR BLOOD (Dip) 3+ mg/dL (NEGATIVE); UR CLARITY CLOUDY (CLEAR); UR COLOR YELLOW (YELLOW); UR GLUCOSE (Dip) NEGATIVE (NEGATIVE); UR KETONES (Dip) NEGATIVE (NEGATIVE); UR LEUKOCYTE ESTERASE (Dip) 3+ Leu/ul (NEGATIVE); UR NITRITE (Dip) NEGATIVE (NEGATIVE); UR RBC 64 /HPF (0-5); UR SPECIFIC GRAVITY (Dip) 1.011 (1.003-1.030); UR TOTAL PROTEIN (Dip) 2+ mg/dl (NEGATIVE); UR UROBILINOGEN (Dip) NEGATIVE (NEGATIVE); UR WBC > 182 /HPF (0-5)
[2018-01-12] MEDS: LIDOCAINE 1% (MPF) 5 ML VIAL SC (18:30)
[2018-01-12] MEDS: SODIUM CHLORIDE 0.9% 1L BAG IV* (19:29)
[2018-01-12] MEDS: CLINDAMYCIN 900 MG/D5W (PMX) 50 ML IVPB (19:55)
[2018-01-12] MEDS: VANCOMYCIN 1 GM in 250 ML IVPB (20:00)
[2018-01-12] MEDS: VANCOMYCIN 1 GM (PMX) 250 ML IVPB (20:26)
[2018-01-12] MEDS: SOD CHLORIDE 0.9% 1,000 ML IV (21:00)
[2018-01-12] MEDS: morphine 2 MG INJ IV (21:15)
[2018-01-12] MEDS ORDERED: ALTEPLASE (CATHFLO) 2 MG INJ CATHETER (23:00)
[2018-01-12] MEDS: ALTEPLASE (CATHFLO) 2 MG INJ CATHETER (23:15)
[2018-01-12 23:54] LABS: LACTIC ACID 2.2 mmol/L (0.5-2.0)
[2018-01-13] MEDS: PIPER-TAZO 3.375 GM IV (PMX) 100 ML IVPB ×4 (00:17→22:32)
[2018-01-13] MEDS: VANCOMYCIN 1 GM in 250 ML IVPB (01:29)
[2018-01-13] MEDS: SOD CHLORIDE 0.9% 1,000 ML IV ×2 (07:28→14:59)
[2018-01-13 09:03] LABS: WHITE BLOOD COUNT 22.8 10^3/ul (4.8-10.8)
[2018-01-13 09:03] LABS: ABNORMAL IP MESSAGE 1; HEMATOCRIT 25.8 % (42.0-52.0); HEMOGLOBIN 8.8 g/dl (14.0-18.0); MEAN CORPUSCULAR HEMOGLOBIN 30.1 pg (29.0-33.0); MEAN CORPUSCULAR HGB CONC 34.1 g/dl (32.0-37.0); MEAN CORPUSCULAR VOLUME 88.4 fl (82.0-101.0); MEAN PLATELET VOLUME 8.4 fl (7.4-10.4); PLATELET COUNT 431 10^3/UL (140-415); POSITIVE DIFF @See below; RED BLOOD COUNT 2.92 10^6/ul (4.70-6.10); RED CELL DISTRIBUTION WIDTH 13.9 % (11.5-14.5)
[2018-01-13 09:09] LABS: ADD MAN DIFF? YES
[2018-01-13 09:28] LABS: ANION GAP 9 (8-16); BLOOD UREA NITROGEN 8 mg/dl (7-20); CALCIUM 7.7 mg/dl (8.4-10.2); CARBON DIOXIDE 25 mmol/L (21-31); CHLORIDE 101 mmol/L (97-110); CREATININE 0.75 mg/dl (0.61-1.24); GLUCOSE 97 mg/dl (70-220); MAGNESIUM 1.3 mg/dl (1.7-2.5); PHOSPHORUS 3.6 mg/dl (2.5-4.9); POTASSIUM 3.5 mmol/L (3.5-5.1); SODIUM 131 mmol/L (135-144)
[2018-01-13 10:05] LABS: ANISOCYTOSIS 1+ (0-0); BAND NEUTROPHILS #M 1.1 10^3/ul (0.0-0.6); BAND NEUTROPHILS % (M) 5 % (0-4); BASOPHIL #M 0.6 10^3/ul (0.0-0.0); BASOPHILS % (M) 3 % (0-2); LYMPHOCYTES #M 0.6 10^3/ul (0.8-2.9); LYMPHOCYTES % (M) 3 % (15-51); MONOCYTE #M 1.1 10^3/ul (0.3-0.9); MONOCYTES % (M) 5 % (0-11); MYELOCYTES #M 0.4 10^3/ul (0.0-0.0); MYELOCYTES % (M) 2 % (0-0); PLATELET ESTIMATE INCREASED; POLYCHROMASIA 1+ (0-0); SEG NEUT #M 18.9 10^3/ul (1.6-7.5); SEGMENTED NEUTROPHILS (M) % 82 % (39-77); SMUDGE%M 9 % (0-0)
[2018-01-13] MEDS: morphine 2 MG INJ IV ×4 (11:38→22:32)
[2018-01-13] MEDS ORDERED: VANCOMYCIN 1.5 GM in SOD CHLORIDE 0.9% 250 ML IVPB (14:00)
[2018-01-13] MEDS: LIDOCAINE 1% (MPF) 5 ML VIAL SC (16:30)
[2018-01-13] MEDS: SOD CHLORIDE 0.9% 100 ML (17:05)
[2018-01-13] MEDS: VANCOMYCIN 1.5 GM in SOD CHLORIDE 0.9% 250 ML IVPB (17:38)
[2018-01-13] MEDS: SODIUM HYPOCHLORITE 1/40% 1L IRRIG IRR (21:00)
[2018-01-13] MEDS: MAGNESIUM SULFATE 4 GM/100 ML 100 ML IVPB (22:32)
[2018-01-14] MEDS: morphine 2 MG INJ IV ×5 (02:21→20:18)
[2018-01-14] MEDS: VANCOMYCIN 1.5 GM in SOD CHLORIDE 0.9% 250 ML IVPB ×2 (05:13→17:00)
[2018-01-14] MEDS: PIPER-TAZO 3.375 GM IV (PMX) 100 ML IVPB ×3 (06:35→22:03)
[2018-01-14] MEDS: COLLAGENASE 30 GM TUBE TOP (09:00)
[2018-01-14] MEDS: SODIUM HYPOCHLORITE 1/40% 1L IRRIG IRR ×2 (09:01→19:59)
[2018-01-14 11:28] LABS: ADD MAN DIFF? NO
[2018-01-14 11:32] LABS: WHITE BLOOD COUNT 19.4 10^3/ul (4.8-10.8)
[2018-01-14 11:32] LABS: BASOPHILS % 0.2 % (0.0-2.0); EOSINOPHILS # 0.3 10^3/ul (0.0-0.5); EOSINOPHILS % 1.8 % (0.0-7.0); HEMATOCRIT 24.7 % (42.0-52.0); HEMOGLOBIN 8.3 g/dl (14.0-18.0); LYMPHOCYTES # 1.7 10^3/ul (0.8-2.9); LYMPHOCYTES % 8.8 % (15.0-51.0); MEAN CORPUSCULAR HGB CONC 33.6 g/dl (32.0-37.0); MEAN CORPUSCULAR VOLUME 89.2 fl (82.0-101.0); MONOCYTE # 1.3 10^3/ul (0.3-0.9); MONOCYTES % 6.7 % (0.0-11.0); NEUTROPHIL # 15.6 10^3/ul (1.6-7.5); NEUTROPHILS % 80.4 % (39.0-77.0); PLATELET COUNT 417 10^3/UL (140-415); RED BLOOD COUNT 2.77 10^6/ul (4.70-6.10); RED CELL DISTRIBUTION WIDTH 13.8 % (11.5-14.5)
[2018-01-14 12:00] LABS: ANION GAP 9 (8-16); BLOOD UREA NITROGEN 9 mg/dl (7-20); CALCIUM 7.3 mg/dl (8.4-10.2); CARBON DIOXIDE 26 mmol/L (21-31); CHLORIDE 105 mmol/L (97-110); CREATININE 0.96 mg/dl (0.61-1.24); GLUCOSE 117 mg/dl (70-220); POTASSIUM 3.2 mmol/L (3.5-5.1); SODIUM 137 mmol/L (135-144)
[2018-01-14] MEDS: SOD CHLORIDE 0.9% 1,000 ML IV ×2 (12:04→22:04)
[2018-01-14 17:13] LABS: VANCOMYCIN,TROUGH 18.3 ug/ml (10.0-20.0)
[2018-01-14] MEDS: POTASSIUM CHLORIDE (SR) 20 MEQ TAB PO (18:25)
[2018-01-14] MEDS: VANCOMYCIN 1 GM 250 ML IVPB (19:59)
[2018-01-15] MEDS: morphine 2 MG INJ IV ×5 (00:13→20:12)
[2018-01-15] MEDS: SOD CHLORIDE 0.9% 1,000 ML IV (02:22)
[2018-01-15] MEDS: PIPER-TAZO 3.375 GM IV (PMX) 100 ML IVPB ×3 (05:15→22:32)
[2018-01-15 07:38] LABS: ADD MAN DIFF? NO
[2018-01-15 07:48] LABS: WHITE BLOOD COUNT 20.2 10^3/ul (4.8-10.8)
[2018-01-15 07:48] LABS: BASOPHILS % 0.2 % (0.0-2.0); EOSINOPHILS # 0.4 10^3/ul (0.0-0.5); EOSINOPHILS % 1.8 % (0.0-7.0); HEMATOCRIT 25.5 % (42.0-52.0); HEMOGLOBIN 8.2 g/dl (14.0-18.0); LYMPHOCYTES # 1.3 10^3/ul (0.8-2.9); LYMPHOCYTES % 6.5 % (15.0-51.0); MEAN CORPUSCULAR HEMOGLOBIN 29.3 pg (29.0-33.0); MEAN CORPUSCULAR HGB CONC 32.2 g/dl (32.0-37.0); MEAN CORPUSCULAR VOLUME 91.1 fl (82.0-101.0); MONOCYTE # 1.4 10^3/ul (0.3-0.9); NEUTROPHIL # 16.8 10^3/ul (1.6-7.5); NEUTROPHILS % 83.3 % (39.0-77.0); PLATELET COUNT 442 10^3/UL (140-415); RED CELL DISTRIBUTION WIDTH 13.9 % (11.5-14.5)
[2018-01-15 08:03] LABS: ANION GAP 10 (8-16); BLOOD UREA NITROGEN 16 mg/dl (7-20); CALCIUM 7.5 mg/dl (8.4-10.2); CARBON DIOXIDE 24 mmol/L (21-31); CHLORIDE 107 mmol/L (97-110); CREATININE 1.46 mg/dl (0.61-1.24); GLUCOSE 103 mg/dl (70-220); POTASSIUM 3.8 mmol/L (3.5-5.1); SODIUM 137 mmol/L (135-144)
[2018-01-15 08:10] LABS: MAGNESIUM 1.9 mg/dl (1.7-2.5)
[2018-01-15 08:10] LABS: PHOSPHORUS 5.3 mg/dl (2.5-4.9)
[2018-01-15] MEDS ORDERED: COLLAGENASE 30 GM TUBE TOP (09:00)
[2018-01-15] MEDS: SODIUM HYPOCHLORITE 1/40% 1L IRRIG IRR ×2 (09:18→22:00)
[2018-01-15] MEDS: COLLAGENASE 30 GM TUBE TOP (09:19)
[2018-01-15] MEDS: VANCOMYCIN 1 GM 250 ML IVPB (09:24)
[2018-01-15] MEDS: FLUCONAZOLE 100 MG TAB PO (12:34)
[2018-01-15] MEDS: ENOXAPARIN 40 MG/0.4 ML SYG SC (18:14)
[2018-01-15 19:53] LABS: VANCOMYCIN,TROUGH 27.5 ug/ml (10.0-20.0)
[2018-01-15] MEDS: NYSTATIN 15 GM POWDER BTL TOP (22:00)
[2018-01-16] MEDS: morphine 2 MG INJ IV ×6 (00:12→22:02)
[2018-01-16] MEDS: PIPER-TAZO 3.375 GM IV (PMX) 100 ML IVPB (05:23)
[2018-01-16 06:45] LABS: BLOOD UREA NITROGEN 30 mg/dl (7-20)
[2018-01-16 06:45] LABS: CREATININE 2.77 mg/dl (0.61-1.24)
[2018-01-16 08:41] LABS: VANCOMYCIN,TROUGH 21.6 ug/ml (10.0-20.0)
[2018-01-16] MEDS: NYSTATIN 15 GM POWDER BTL TOP ×2 (08:55→22:03)
[2018-01-16] MEDS: FLUCONAZOLE 100 MG TAB PO (08:56)
[2018-01-16] MEDS: SODIUM HYPOCHLORITE 1/40% 1L IRRIG IRR ×2 (08:56→21:00)
[2018-01-16] MEDS: COLLAGENASE 30 GM TUBE TOP (08:56)
[2018-01-16 09:18] LABS: ADD MAN DIFF? NO
[2018-01-16 09:25] LABS: BASOPHIL # 0.1 10^3/ul (0.0-0.1); BASOPHILS % 0.4 % (0.0-2.0); EOSINOPHILS # 0.3 10^3/ul (0.0-0.5); EOSINOPHILS % 1.5 % (0.0-7.0); HEMATOCRIT 24.2 % (42.0-52.0); HEMOGLOBIN 7.8 g/dl (14.0-18.0); LYMPHOCYTES # 1.7 10^3/ul (0.8-2.9); LYMPHOCYTES % 8.3 % (15.0-51.0); MEAN CORPUSCULAR HEMOGLOBIN 29.5 pg (29.0-33.0); MEAN CORPUSCULAR HGB CONC 32.2 g/dl (32.0-37.0); MEAN CORPUSCULAR VOLUME 91.7 fl (82.0-101.0); MEAN PLATELET VOLUME 8.5 fl (7.4-10.4); MONOCYTE # 1.4 10^3/ul (0.3-0.9); MONOCYTES % 7.1 % (0.0-11.0); NEUTROPHIL # 16.4 10^3/ul (1.6-7.5); NEUTROPHILS % 81.9 % (39.0-77.0); PLATELET COUNT 421 10^3/UL (140-415); RED BLOOD COUNT 2.64 10^6/ul (4.70-6.10)
[2018-01-16] MEDS: SOD CHLORIDE 0.9% 1,000 ML IV ×2 (10:12→23:48)
[2018-01-16] MEDS: CEFTRIAXONE 1 GM/50 ML (PMX) 50 ML IVPB (10:56)
[2018-01-16] MEDS ORDERED: PIPER-TAZO 2.25 GM (PMX) 50 ML IVPB (14:00)
[2018-01-16] MEDS: SOD FERRIC GLUC COMPLX 125 MG in SOD CHLORIDE 0.9% 100 ML IVPB (14:03)
[2018-01-16 14:27] LABS: ADD UMIC YES; UR ASCORBIC ACID NEGATIVE (NEGATIVE); UR BACTERIA FEW /HPF (NONE SEEN); UR BILIRUBIN (Dip) NEGATIVE (NEGATIVE); UR BLOOD (Dip) 3+ mg/dL (NEGATIVE); UR BUDDING YEAST MODERATE /HPF (NONE SEEN); UR CLARITY TURBID (CLEAR); UR COLOR RED (YELLOW); UR GLUCOSE (Dip) 1+ mg/dL (NEGATIVE); UR KETONES (Dip) NEGATIVE (NEGATIVE); UR LEUKOCYTE ESTERASE (Dip) 2+ Leu/ul (NEGATIVE); UR NITRITE (Dip) NEGATIVE (NEGATIVE); UR NONSQUAMOUS EPITHELIAL CELL 5 /HPF (NONE SEEN); UR RBC > 182 /HPF (0-5); UR SPECIFIC GRAVITY (Dip) 1.017 (1.003-1.030); UR TOTAL PROTEIN (Dip) 2+ mg/dl (NEGATIVE); UR UROBILINOGEN (Dip) NEGATIVE (NEGATIVE); UR WBC > 182 /HPF (0-5)
[2018-01-17] MEDS: SOD CHLORIDE 0.9% 1,000 ML IV ×3 (02:29→19:54)
[2018-01-17] MEDS: morphine 2 MG INJ IV ×5 (02:29→20:03)
[2018-01-17 05:46] LABS: ADD MAN DIFF? NO
[2018-01-17 05:57] LABS: WHITE BLOOD COUNT 13.6 10^3/ul (4.8-10.8)
[2018-01-17 05:57] LABS: BASOPHIL # 0.1 10^3/ul (0.0-0.1); BASOPHILS % 0.4 % (0.0-2.0); EOSINOPHILS # 0.5 10^3/ul (0.0-0.5); EOSINOPHILS % 3.5 % (0.0-7.0); HEMATOCRIT 23.7 % (42.0-52.0); HEMOGLOBIN 7.6 g/dl (14.0-18.0); LYMPHOCYTES # 1.1 10^3/ul (0.8-2.9); LYMPHOCYTES % 8.1 % (15.0-51.0); MEAN CORPUSCULAR HEMOGLOBIN 29.5 pg (29.0-33.0); MEAN CORPUSCULAR HGB CONC 32.1 g/dl (32.0-37.0); MEAN CORPUSCULAR VOLUME 91.9 fl (82.0-101.0); MEAN PLATELET VOLUME 8.4 fl (7.4-10.4); MONOCYTES % 7.4 % (0.0-11.0); NEUTROPHIL # 10.9 10^3/ul (1.6-7.5); PLATELET COUNT 429 10^3/UL (140-415); RED BLOOD COUNT 2.58 10^6/ul (4.70-6.10); RED CELL DISTRIBUTION WIDTH 13.8 % (11.5-14.5)
[2018-01-17 06:21] LABS: BLOOD UREA NITROGEN 39 mg/dl (7-20)
[2018-01-17] MEDS: COLLAGENASE 30 GM TUBE TOP ×2 (06:43→08:59)
[2018-01-17] MEDS: SODIUM HYPOCHLORITE 1/40% 1L IRRIG IRR ×3 (07:30→20:04)
[2018-01-17] MEDS: NYSTATIN 15 GM POWDER BTL TOP ×2 (08:58→20:04)
[2018-01-17] MEDS: FLUCONAZOLE 100 MG TAB PO (08:59)
[2018-01-17] MEDS: CEFTRIAXONE 1 GM/50 ML (PMX) 50 ML IVPB (10:53)
[2018-01-17] MEDS: SOD FERRIC GLUC COMPLX 125 MG in SOD CHLORIDE 0.9% 100 ML IVPB (13:39)
[2018-01-17] MEDS: CEFEPIME 1GM/50 ML (PMX) 50 ML IVPB (15:40)
[2018-01-17] MEDS: DAPTOMYCIN IVPB (17:35)
[2018-01-17] MEDS: SOD CHLORIDE 0.9% IVPB (17:35)
[2018-01-17 18:56] LABS: COMPLEMENT C3 66 mg/dl (88-165); COMPLEMENT C4 20 mg/dl (14-44)
[2018-01-18] MEDS: morphine 2 MG INJ IV ×6 (00:01→22:59)
[2018-01-18] MEDS: SOD CHLORIDE 0.9% 1,000 ML IV ×2 (04:24→15:14)
[2018-01-18 06:04] LABS: ADD MAN DIFF? NO
[2018-01-18 06:12] LABS: BASOPHIL # 0.1 10^3/ul (0.0-0.1); BASOPHILS % 0.5 % (0.0-2.0); EOSINOPHILS # 0.2 10^3/ul (0.0-0.5); EOSINOPHILS % 1.7 % (0.0-7.0); HEMATOCRIT 22.9 % (42.0-52.0); HEMOGLOBIN 7.4 g/dl (14.0-18.0); LYMPHOCYTES # 1.4 10^3/ul (0.8-2.9); MEAN CORPUSCULAR HEMOGLOBIN 29.4 pg (29.0-33.0); MEAN CORPUSCULAR HGB CONC 32.3 g/dl (32.0-37.0); MEAN CORPUSCULAR VOLUME 90.9 fl (82.0-101.0); MEAN PLATELET VOLUME 8.4 fl (7.4-10.4); MONOCYTES % 9.1 % (0.0-11.0); NEUTROPHIL # 8.8 10^3/ul (1.6-7.5); NEUTROPHILS % 76.4 % (39.0-77.0); PLATELET COUNT 456 10^3/UL (140-415); RED BLOOD COUNT 2.52 10^6/ul (4.70-6.10); RED CELL DISTRIBUTION WIDTH 13.9 % (11.5-14.5)
[2018-01-18 06:12] LABS: WHITE BLOOD COUNT 11.5 10^3/ul (4.8-10.8)
[2018-01-18 06:38] LABS: PHOSPHORUS 10.3 mg/dl (2.5-4.9)
[2018-01-18 06:44] LABS: ANION GAP 14 (8-16); BLOOD UREA NITROGEN 46 mg/dl (7-20); CALCIUM 7.8 mg/dl (8.4-10.2); CARBON DIOXIDE 17 mmol/L (21-31); CHLORIDE 107 mmol/L (97-110); GLUCOSE 105 mg/dl (70-220); POTASSIUM 5.1 mmol/L (3.5-5.1); SODIUM 133 mmol/L (135-144)
[2018-01-18 07:10] LABS: CREATINE KINASE 27 IU/L (23-200)
[2018-01-18] MEDS: SODIUM HYPOCHLORITE 1/40% 1L IRRIG IRR ×2 (09:00→21:08)
[2018-01-18] MEDS: COLLAGENASE 30 GM TUBE TOP (09:00)
[2018-01-18] MEDS: FLUCONAZOLE 100 MG TAB PO (09:00)
[2018-01-18] MEDS: NYSTATIN 15 GM POWDER BTL TOP ×2 (09:00→21:08)
[2018-01-18] MEDS: SOD FERRIC GLUC COMPLX 125 MG in SOD CHLORIDE 0.9% 100 ML IVPB (13:55)
[2018-01-18] MEDS: CEFEPIME 1GM/50 ML (PMX) 50 ML IVPB (15:14)
[2018-01-18] MEDS: CALCIUM ACETATE 667 MG CAP NGT (18:20)
[2018-01-18] MEDS: NA BICARBONATE 650 MG TAB PO (21:06)
[2018-01-18] MEDS: GENTAMICIN 0.1% 15 GM OINT TOP (21:07)
[2018-01-18] MEDS: TAMSULOSIN (SR) 0.4 MG CAP PO (21:07)
[2018-01-19 05:53] LABS: ADD MAN DIFF? NO
[2018-01-19 05:59] LABS: BASOPHIL # 0.1 10^3/ul (0.0-0.1); BASOPHILS % 0.7 % (0.0-2.0); EOSINOPHILS # 0.1 10^3/ul (0.0-0.5); HEMATOCRIT 21.6 % (42.0-52.0); HEMOGLOBIN 7.1 g/dl (14.0-18.0); LYMPHOCYTES # 0.9 10^3/ul (0.8-2.9); LYMPHOCYTES % 8.3 % (15.0-51.0); MEAN CORPUSCULAR HEMOGLOBIN 29.7 pg (29.0-33.0); MEAN CORPUSCULAR HGB CONC 32.9 g/dl (32.0-37.0); MEAN CORPUSCULAR VOLUME 90.4 fl (82.0-101.0); MEAN PLATELET VOLUME 8.3 fl (7.4-10.4); MONOCYTE # 1.1 10^3/ul (0.3-0.9); MONOCYTES % 10.2 % (0.0-11.0); NEUTROPHIL # 8.5 10^3/ul (1.6-7.5); NEUTROPHILS % 79.2 % (39.0-77.0); PLATELET COUNT 436 10^3/UL (140-415); RED BLOOD COUNT 2.39 10^6/ul (4.70-6.10); RED CELL DISTRIBUTION WIDTH 13.9 % (11.5-14.5)
[2018-01-19 05:59] LABS: WHITE BLOOD COUNT 10.8 10^3/ul (4.8-10.8)
[2018-01-19 06:12] LABS: ANION GAP 17 (8-16); BLOOD UREA NITROGEN 50 mg/dl (7-20); CARBON DIOXIDE 15 mmol/L (21-31); CHLORIDE 108 mmol/L (97-110); CREATININE 5.77 mg/dl (0.61-1.24); GLUCOSE 102 mg/dl (70-220); POTASSIUM 5.2 mmol/L (3.5-5.1); SODIUM 135 mmol/L (135-144)
[2018-01-19 06:15] LABS: PHOSPHORUS 11.1 mg/dl (2.5-4.9)
[2018-01-19] MEDS: SOD CHLORIDE 0.9% 1,000 ML IV (06:23)
[2018-01-19] MEDS: morphine 2 MG INJ IV ×4 (06:27→20:31)
[2018-01-19] MEDS: FLUCONAZOLE 100 MG TAB PO (09:02)
[2018-01-19] MEDS: CALCIUM ACETATE 667 MG CAP NGT ×3 (09:02→18:02)
[2018-01-19] MEDS: COLLAGENASE 30 GM TUBE TOP (09:03)
[2018-01-19] MEDS: GENTAMICIN 0.1% 15 GM OINT TOP ×3 (09:03→20:38)
[2018-01-19] MEDS: NYSTATIN 15 GM POWDER BTL TOP ×2 (09:03→20:37)
[2018-01-19] MEDS: SODIUM HYPOCHLORITE 1/40% 1L IRRIG IRR ×2 (09:03→20:39)
[2018-01-19] MEDS ORDERED: CEFTAZIDIME 1GM/50 ML (PMX) 50 ML IVPB (11:00)
[2018-01-19] MEDS: NA POLYST SULFON 15 GM/60 ML BTL PO (11:52)
[2018-01-19] MEDS: INSULIN ASPART [NOVOLOG] 3 ML PEN SC ×3 (12:15→20:36)
[2018-01-19] MEDS ORDERED: DEXTROSE 50% 50 ML SYRINGE IV ×2 (12:30)
[2018-01-19] MEDS ORDERED: GLUCAGON 1 MG INJ IM (12:30)
[2018-01-19] MEDS ORDERED: GLUCOSE GEL 15 GRAM TUBE PO ×2 (12:30)
[2018-01-19] MEDS ORDERED: GLUCOSE GEL 15 GRAM TUBE BUCCAL (12:30)
[2018-01-19] MEDS: SOD FERRIC GLUC COMPLX 125 MG in SOD CHLORIDE 0.9% 100 ML IVPB (13:04)
[2018-01-19] MEDS: SEVELAMER 800 MG TAB PO ×2 (13:04→18:01)
[2018-01-19] MEDS: NA BICARBONATE 650 MG TAB PO ×2 (13:47→20:37)
[2018-01-19] MEDS ORDERED: SODIUM BICARBONATE (IV ADD) 100 MEQ in DEXTROSE 5% 1,000 ML IV (14:00)
[2018-01-19] MEDS ORDERED: METHYLPREDNISOLONE 125 MG INJ IV (14:00)
[2018-01-19] MEDS: SODIUM BICARBONATE (IV ADD) 100 MEQ in DEXTROSE 5% 1,000 ML IV (14:38)
[2018-01-19 16:21] LABS: CREATININE, RANDOM URINE 119 mg/dL (20-370); MICROALBUMIN 125.6 mg/dL; MICROALBUMIN/CREATININE RATIO 1055 (<30)
[2018-01-19] MEDS: METHYLPREDNISOLONE 125 MG INJ IV (20:34)
[2018-01-19] MEDS: TAMSULOSIN (SR) 0.4 MG CAP PO (20:34)
[2018-01-19] MEDS ORDERED: DOXYCYCLINE 100 MG TAB PO (21:00)
[2018-01-19] MEDS: CALCIUM CARBONATE 500 MG CHEW TAB PO (21:42)
[2018-01-20] MEDS: ACCU-CHEK XX ×2 (01:10→22:21)
[2018-01-20] MEDS: morphine 2 MG INJ IV ×5 (03:40→21:14)
[2018-01-20] MEDS: SODIUM HYPOCHLORITE 1/40% 1L IRRIG IRR ×3 (04:10→22:31)
[2018-01-20] MEDS: GENTAMICIN 0.1% 15 GM OINT TOP ×4 (04:10→22:32)
[2018-01-20] MEDS: PANTOPRAZOLE (EC) 40 MG TAB PO (05:21)
[2018-01-20 06:04] LABS: ADD MAN DIFF? NO
[2018-01-20 06:11] LABS: ABNORMAL IP MESSAGE 1; BASOPHILS % 0.4 % (0.0-2.0); HEMATOCRIT 23.9 % (42.0-52.0); HEMOGLOBIN 7.8 g/dl (14.0-18.0); LYMPHOCYTES # 0.2 10^3/ul (0.8-2.9); LYMPHOCYTES % 2.3 % (15.0-51.0); MEAN CORPUSCULAR HEMOGLOBIN 29.2 pg (29.0-33.0); MEAN CORPUSCULAR HGB CONC 32.6 g/dl (32.0-37.0); MEAN CORPUSCULAR VOLUME 89.5 fl (82.0-101.0); MEAN PLATELET VOLUME 8.2 fl (7.4-10.4); MONOCYTES % 0.3 % (0.0-11.0); NEUTROPHIL # 7.6 10^3/ul (1.6-7.5); NEUTROPHILS % 96.4 % (39.0-77.0); PLATELET COUNT 445 10^3/UL (140-415); POSITIVE DIFF @See below; RED BLOOD COUNT 2.67 10^6/ul (4.70-6.10); RED CELL DISTRIBUTION WIDTH 13.5 % (11.5-14.5)
[2018-01-20 06:11] LABS: WHITE BLOOD COUNT 7.9 10^3/ul (4.8-10.8)
[2018-01-20 06:38] LABS: ANION GAP 18 (8-16); BLOOD UREA NITROGEN 54 mg/dl (7-20); CALCIUM 7.8 mg/dl (8.4-10.2); CARBON DIOXIDE 17 mmol/L (21-31); CHLORIDE 106 mmol/L (97-110); CREATININE 6.26 mg/dl (0.61-1.24); GLUCOSE 212 mg/dl (70-220); SODIUM 135 mmol/L (135-144)
[2018-01-20] MEDS: CALCIUM ACETATE 667 MG CAP NGT ×3 (07:55→16:53)
[2018-01-20] MEDS: SEVELAMER 800 MG TAB PO ×3 (07:55→16:53)
[2018-01-20] MEDS: INSULIN ASPART [NOVOLOG] 3 ML PEN SC ×4 (08:00→21:00)
[2018-01-20] MEDS: NYSTATIN 15 GM POWDER BTL TOP ×2 (08:00→21:17)
[2018-01-20] MEDS: METHYLPREDNISOLONE 125 MG INJ IV ×2 (08:00→21:15)
[2018-01-20] MEDS: NA BICARBONATE 650 MG TAB PO ×3 (08:01→22:43)
[2018-01-20] MEDS: COLLAGENASE 30 GM TUBE TOP (08:01)
[2018-01-20] MEDS: FLUCONAZOLE 100 MG TAB PO (08:01)
[2018-01-20 08:47] LABS: Allen Test ACCEPTAB; Arterial Base Excess -8.8 mmol/L (-3.0-3); Arterial Blood Gas Oxygen Sat 96.1 mmHG (95.0-98.0); Arterial COHb 0.3 % (0.0-3.0); Arterial Fraction of Oxyhgb 95.5 % (93.0-99.0); Arterial HCO3 16.8 mmol/L (22.0-26.0); Arterial MetHb 0.3 % (0.0-1.5); Arterial Total Hemglobin 8.7 g/dl (12.0-18.0); Arterial pCO2 34.7 mmhg (35-45); MODE ROOM AIR; Site Right Radial
[2018-01-20] MEDS: NA POLYST SULFON 15 GM/60 ML BTL PO (10:18)
[2018-01-20] MEDS ORDERED: DEXTROSE 50% 50 ML SYRINGE IV (12:30)
[2018-01-20] MEDS: SODIUM BICARBONATE (IV ADD) 100 MEQ in DEXTROSE 5% 1,000 ML IV (12:36)
[2018-01-20] MEDS: INSULIN REGULAR, HUMAN 100 UNIT/1 ML 3ML VIAL IVP (12:39)
[2018-01-20] MEDS: SOD FERRIC GLUC COMPLX 125 MG in SOD CHLORIDE 0.9% 100 ML IVPB (13:34)
[2018-01-20] MEDS: ALTEPLASE (CATHFLO) 2 MG INJ CATHETER (15:40)
[2018-01-20] MEDS: CALCIUM CARBONATE 500 MG CHEW TAB PO ×2 (19:02→22:43)
[2018-01-20] MEDS: TAMSULOSIN (SR) 0.4 MG CAP PO (21:15)
[2018-01-21] MEDS: morphine 2 MG INJ IV ×4 (01:28→20:49)
[2018-01-21] MEDS: GENTAMICIN 0.1% 15 GM OINT TOP ×4 (06:39→21:03)
[2018-01-21] MEDS: SODIUM HYPOCHLORITE 1/40% 1L IRRIG IRR ×3 (06:39→21:03)
[2018-01-21] MEDS: SEVELAMER 800 MG TAB PO ×2 (08:03→11:14)
[2018-01-21] MEDS: CALCIUM ACETATE 667 MG CAP NGT ×3 (08:03→17:24)
[2018-01-21] MEDS: INSULIN ASPART [NOVOLOG] 3 ML PEN SC ×4 (08:09→21:00)
[2018-01-21] MEDS: FLUCONAZOLE 100 MG TAB PO (08:24)
[2018-01-21] MEDS: COLLAGENASE 30 GM TUBE TOP (08:24)
[2018-01-21] MEDS: CALCIUM CARBONATE 500 MG CHEW TAB PO (08:24)
[2018-01-21] MEDS: NYSTATIN 15 GM POWDER BTL TOP ×2 (08:24→21:03)
[2018-01-21] MEDS: METHYLPREDNISOLONE 125 MG INJ IV (08:24)
[2018-01-21] MEDS: NA BICARBONATE 650 MG TAB PO ×2 (08:41→20:49)
[2018-01-21 09:51] LABS: ADD MAN DIFF? NO
[2018-01-21 09:54] LABS: ABNORMAL IP MESSAGE 1; BASOPHILS % 0.1 % (0.0-2.0); HEMATOCRIT 22.9 % (42.0-52.0); HEMOGLOBIN 7.4 g/dl (14.0-18.0); LYMPHOCYTES # 0.4 10^3/ul (0.8-2.9); MEAN CORPUSCULAR HEMOGLOBIN 29.4 pg (29.0-33.0); MEAN CORPUSCULAR HGB CONC 32.3 g/dl (32.0-37.0); MEAN CORPUSCULAR VOLUME 90.9 fl (82.0-101.0); MEAN PLATELET VOLUME 8.2 fl (7.4-10.4); MONOCYTE # 0.3 10^3/ul (0.3-0.9); MONOCYTES % 3.2 % (0.0-11.0); NEUTROPHIL # 7.6 10^3/ul (1.6-7.5); NEUTROPHILS % 91.1 % (39.0-77.0); PLATELET COUNT 469 10^3/UL (140-415); POSITIVE DIFF @See below; RED BLOOD COUNT 2.52 10^6/ul (4.70-6.10); RED CELL DISTRIBUTION WIDTH 13.6 % (11.5-14.5)
[2018-01-21 09:54] LABS: WHITE BLOOD COUNT 8.3 10^3/ul (4.8-10.8)
[2018-01-21 10:11] LABS: ANION GAP 20 (8-16); BLOOD UREA NITROGEN 66 mg/dl (7-20); CALCIUM 7.7 mg/dl (8.4-10.2); CARBON DIOXIDE 20 mmol/L (21-31); CHLORIDE 102 mmol/L (97-110); CREATININE 6.67 mg/dl (0.61-1.24); GLUCOSE 153 mg/dl (70-220); POTASSIUM 5.8 mmol/L (3.5-5.1); SODIUM 136 mmol/L (135-144)
[2018-01-21] MEDS: SODIUM BICARBONATE (IV ADD) 100 MEQ in DEXTROSE 5% 1,000 ML IV (11:13)
[2018-01-21] MEDS: NA POLYST SULFON 15 GM/60 ML BTL PO (11:14)
[2018-01-21] MEDS ORDERED: DEXTROSE 50% 50 ML SYRINGE IV (12:30)
[2018-01-21] MEDS ORDERED: LANTHANUM CARBONATE 1,000 MG CHEW PO (13:00)
[2018-01-21] MEDS: INSULIN REGULAR, HUMAN 100 UNIT/1 ML 3ML VIAL SC (14:24)
[2018-01-21] MEDS: LANTHANUM 500 MG CHEW PO ×2 (14:27→17:24)
[2018-01-21] MEDS: SODIUM BICARBONATE (IV ADD) 150 MEQ in DEXTROSE 5% 1,000 ML IV (14:55)
[2018-01-21 17:12] LABS: ANION GAP 21 (8-16); BLOOD UREA NITROGEN 70 mg/dl (7-20); CALCIUM 7.8 mg/dl (8.4-10.2); CARBON DIOXIDE 20 mmol/L (21-31); CHLORIDE 101 mmol/L (97-110); CREATININE 6.58 mg/dl (0.61-1.24); GLUCOSE 136 mg/dl (70-220); POTASSIUM 5.6 mmol/L (3.5-5.1); SODIUM 136 mmol/L (135-144)
[2018-01-21] MEDS: METHYLPREDNISOLONE 40 MG INJ IV (20:49)
[2018-01-21] MEDS: TAMSULOSIN (SR) 0.4 MG CAP PO (20:49)
[2018-01-21] MEDS: AL HYDROX/MG HYDROX/SIMETH 30 ML CUP PO (20:58)
[2018-01-21] MEDS: ACCU-CHEK XX (21:01)
[2018-01-22] MEDS: CALCIUM CARBONATE 500 MG CHEW TAB PO (06:08)
[2018-01-22] MEDS: morphine 2 MG INJ IV (06:08)
[2018-01-22] MEDS: INSULIN ASPART [NOVOLOG] 3 ML PEN SC ×4 (08:00→21:38)
[2018-01-22] MEDS: CALCIUM ACETATE 667 MG CAP NGT ×4 (08:43→17:15)
[2018-01-22] MEDS: NA BICARBONATE 650 MG TAB PO ×2 (08:44→21:37)
[2018-01-22] MEDS: LANTHANUM 500 MG CHEW PO ×4 (08:44→17:18)
[2018-01-22] MEDS: FLUCONAZOLE 100 MG TAB PO (08:44)
[2018-01-22] MEDS: METHYLPREDNISOLONE 40 MG INJ IV (08:45)
[2018-01-22] MEDS: GENTAMICIN 0.1% 15 GM OINT TOP ×3 (08:46→21:40)
[2018-01-22] MEDS: SODIUM HYPOCHLORITE 1/40% 1L IRRIG IRR ×2 (08:46→21:39)
[2018-01-22] MEDS: NYSTATIN 15 GM POWDER BTL TOP ×2 (08:46→21:39)
[2018-01-22] MEDS: COLLAGENASE 30 GM TUBE TOP (08:47)
[2018-01-22 08:49] LABS: ADD MAN DIFF? NO
[2018-01-22 08:54] LABS: ABNORMAL IP MESSAGE 1; HEMATOCRIT 22.1 % (42.0-52.0); HEMOGLOBIN 7.2 g/dl (14.0-18.0); LYMPHOCYTES # 0.3 10^3/ul (0.8-2.9); LYMPHOCYTES % 4.1 % (15.0-51.0); MEAN CORPUSCULAR HEMOGLOBIN 28.9 pg (29.0-33.0); MEAN CORPUSCULAR HGB CONC 32.6 g/dl (32.0-37.0); MEAN CORPUSCULAR VOLUME 88.8 fl (82.0-101.0); MEAN PLATELET VOLUME 8.4 fl (7.4-10.4); MONOCYTE # 0.5 10^3/ul (0.3-0.9); MONOCYTES % 6.4 % (0.0-11.0); NEUTROPHIL # 7.1 10^3/ul (1.6-7.5); NEUTROPHILS % 88.9 % (39.0-77.0); PLATELET COUNT 484 10^3/UL (140-415); POSITIVE DIFF @See below; RED BLOOD COUNT 2.49 10^6/ul (4.70-6.10); RED CELL DISTRIBUTION WIDTH 13.7 % (11.5-14.5)
[2018-01-22 09:28] LABS: ANION GAP 20 (8-16); BLOOD UREA NITROGEN 76 mg/dl (7-20); CALCIUM 7.5 mg/dl (8.4-10.2); CARBON DIOXIDE 21 mmol/L (21-31); CHLORIDE 103 mmol/L (97-110); CREATININE 6.26 mg/dl (0.61-1.24); GLUCOSE 146 mg/dl (70-220); POTASSIUM 5.1 mmol/L (3.5-5.1); SODIUM 139 mmol/L (135-144)
[2018-01-22 09:29] LABS: MAGNESIUM 2.1 mg/dl (1.7-2.5)
[2018-01-22 09:29] LABS: PHOSPHORUS 11.6 mg/dl (2.5-4.9)
[2018-01-22] MEDS: NA POLYST SULFON 15 GM/60 ML BTL PO (10:19)
[2018-01-22 10:22] LABS: ADD UMIC YES; UR ASCORBIC ACID NEGATIVE (NEGATIVE); UR BACTERIA FEW /HPF (NONE SEEN); UR BILIRUBIN (Dip) NEGATIVE (NEGATIVE); UR BLOOD (Dip) 3+ mg/dL (NEGATIVE); UR BUDDING YEAST FEW /HPF (NONE SEEN); UR CLARITY SLIGHTLY CLOUDY (CLEAR); UR COLOR YELLOW (YELLOW); UR GLUCOSE (Dip) 1+ mg/dL (NEGATIVE); UR KETONES (Dip) NEGATIVE (NEGATIVE); UR LEUKOCYTE ESTERASE (Dip) 2+ Leu/ul (NEGATIVE); UR NITRITE (Dip) NEGATIVE (NEGATIVE); UR RBC > 182 /HPF (0-5); UR SPECIFIC GRAVITY (Dip) 1.014 (1.003-1.030); UR TOTAL PROTEIN (Dip) 2+ mg/dl (NEGATIVE); UR UROBILINOGEN (Dip) NEGATIVE (NEGATIVE); UR WBC 111 /HPF (0-5)
[2018-01-22] MEDS: BUPROPION 100 MG TAB PO (17:14)
[2018-01-22 18:28] LABS: ANION GAP 18 (8-16); BLOOD UREA NITROGEN 81 mg/dl (7-20); CALCIUM 7.6 mg/dl (8.4-10.2); CARBON DIOXIDE 22 mmol/L (21-31); CHLORIDE 101 mmol/L (97-110); CREATININE 5.93 mg/dl (0.61-1.24); GLUCOSE 156 mg/dl (70-220); POTASSIUM 4.5 mmol/L (3.5-5.1); SODIUM 136 mmol/L (135-144)
[2018-01-22] MEDS: TAMSULOSIN (SR) 0.4 MG CAP PO (21:37)
[2018-01-23] MEDS: morphine 2 MG INJ IV ×5 (01:48→20:41)
[2018-01-23] MEDS: ACCU-CHEK XX (02:25)
[2018-01-23 07:49] LABS: ADD MAN DIFF? NO
[2018-01-23 07:54] LABS: ABNORMAL IP MESSAGE 1; EOSINOPHILS % 0.1 % (0.0-7.0); HEMATOCRIT 24.4 % (42.0-52.0); LYMPHOCYTES % 8.3 % (15.0-51.0); MEAN CORPUSCULAR HEMOGLOBIN 29.2 pg (29.0-33.0); MEAN CORPUSCULAR HGB CONC 32.8 g/dl (32.0-37.0); MEAN CORPUSCULAR VOLUME 89.1 fl (82.0-101.0); MEAN PLATELET VOLUME 8.2 fl (7.4-10.4); MONOCYTE # 1.9 10^3/ul (0.3-0.9); NEUTROPHIL # 8.7 10^3/ul (1.6-7.5); NEUTROPHILS % 74.7 % (39.0-77.0); PLATELET COUNT 526 10^3/UL (140-415); POSITIVE DIFF @See below; RED BLOOD COUNT 2.74 10^6/ul (4.70-6.10); RED CELL DISTRIBUTION WIDTH 13.8 % (11.5-14.5)
[2018-01-23 07:54] LABS: WHITE BLOOD COUNT 11.6 10^3/ul (4.8-10.8)
[2018-01-23] MEDS: INSULIN ASPART [NOVOLOG] 3 ML PEN SC ×4 (08:00→20:40)
[2018-01-23 08:15] LABS: PHOSPHORUS 10.5 mg/dl (2.5-4.9)
[2018-01-23 08:21] LABS: ALANINE AMINOTRANSFERASE 40 IU/L (13-69); ALBUMIN 2.6 g/dl (3.3-4.9); ALBUMIN/GLOBULIN RATIO 0.76; ALKALINE PHOSPHATASE 68 IU/L (42-121); ANION GAP 19 (8-16); ASPARTATE AMINO TRANSFERASE 29 IU/L (15-46); BLOOD UREA NITROGEN 78 mg/dl (7-20); CALCIUM 7.6 mg/dl (8.4-10.2); CARBON DIOXIDE 25 mmol/L (21-31); CHLORIDE 102 mmol/L (97-110); CREATININE 5.73 mg/dl (0.61-1.24); GLUCOSE 112 mg/dl (70-220); SODIUM 142 mmol/L (135-144)
[2018-01-23] MEDS: CALCIUM ACETATE 667 MG CAP NGT ×3 (08:47→17:52)
[2018-01-23] MEDS: NA BICARBONATE 650 MG TAB PO (08:47)
[2018-01-23] MEDS: LANTHANUM 500 MG CHEW PO ×3 (08:48→17:52)
[2018-01-23] MEDS: METHYLPREDNISOLONE 40 MG INJ IV (08:48)
[2018-01-23] MEDS: BUPROPION 100 MG TAB PO (08:48)
[2018-01-23] MEDS: SODIUM HYPOCHLORITE 1/40% 1L IRRIG IRR ×2 (09:00→20:40)
[2018-01-23] MEDS: GENTAMICIN 0.1% 15 GM OINT TOP ×3 (09:00→20:40)
[2018-01-23] MEDS: COLLAGENASE 30 GM TUBE TOP (09:00)
[2018-01-23] MEDS: NYSTATIN 15 GM POWDER BTL TOP ×2 (09:00→20:40)
[2018-01-23] MEDS: FLUCONAZOLE 100 MG TAB PO (09:44)
[2018-01-23] MEDS: FAMOTIDINE 20 MG INJ IV (09:45)
[2018-01-23] MEDS: PHENOL 1.4% SOLN 180 ML BTL MT (12:34)
[2018-01-23] MEDS ORDERED: LEVOFLOXACIN 250 MG TAB PO (15:00)
[2018-01-23] MEDS ORDERED: SOD CHLORIDE 0.9% IVPB (16:00)
[2018-01-23] MEDS ORDERED: DAPTOMYCIN IVPB (16:00)
[2018-01-23] MEDS: TAMSULOSIN (SR) 0.4 MG CAP PO (20:40)
[2018-01-24] MEDS: morphine 2 MG INJ IV ×5 (01:52→21:37)
[2018-01-24] MEDS: ACCU-CHEK XX (02:00)
[2018-01-24 06:24] LABS: ADD MAN DIFF? NO
[2018-01-24 06:27] LABS: WHITE BLOOD COUNT 9.7 10^3/ul (4.8-10.8)
[2018-01-24 06:27] LABS: EOSINOPHILS % 0.1 % (0.0-7.0); HEMATOCRIT 23.4 % (42.0-52.0); HEMOGLOBIN 7.7 g/dl (14.0-18.0); LYMPHOCYTES # 1.1 10^3/ul (0.8-2.9); LYMPHOCYTES % 10.8 % (15.0-51.0); MEAN CORPUSCULAR HEMOGLOBIN 29.3 pg (29.0-33.0); MEAN CORPUSCULAR HGB CONC 32.9 g/dl (32.0-37.0); MEAN PLATELET VOLUME 8.6 fl (7.4-10.4); MONOCYTE # 1.3 10^3/ul (0.3-0.9); MONOCYTES % 12.9 % (0.0-11.0); NEUTROPHIL # 7.4 10^3/ul (1.6-7.5); NEUTROPHILS % 75.7 % (39.0-77.0); PLATELET COUNT 469 10^3/UL (140-415); RED BLOOD COUNT 2.63 10^6/ul (4.70-6.10); RED CELL DISTRIBUTION WIDTH 14.2 % (11.5-14.5)
[2018-01-24 07:18] LABS: ANION GAP 20 (8-16); BLOOD UREA NITROGEN 78 mg/dl (7-20); CALCIUM 7.7 mg/dl (8.4-10.2); CARBON DIOXIDE 25 mmol/L (21-31); CHLORIDE 103 mmol/L (97-110); CREATININE 4.84 mg/dl (0.61-1.24); GLUCOSE 101 mg/dl (70-220); POTASSIUM 3.8 mmol/L (3.5-5.1); SODIUM 144 mmol/L (135-144)
[2018-01-24] MEDS: INSULIN ASPART [NOVOLOG] 3 ML PEN SC ×4 (07:49→21:20)
[2018-01-24] MEDS: CALCIUM ACETATE 667 MG CAP NGT ×3 (08:03→16:52)
[2018-01-24] MEDS: METHYLPREDNISOLONE 40 MG INJ IV (08:04)
[2018-01-24] MEDS: GENTAMICIN 0.1% 15 GM OINT TOP ×3 (08:04→21:09)
[2018-01-24] MEDS: COLLAGENASE 30 GM TUBE TOP (08:04)
[2018-01-24] MEDS: LANTHANUM 500 MG CHEW PO ×3 (08:04→16:53)
[2018-01-24] MEDS: NYSTATIN 15 GM POWDER BTL TOP ×2 (08:04→21:09)
[2018-01-24] MEDS: SODIUM HYPOCHLORITE 1/40% 1L IRRIG IRR ×2 (08:04→21:09)
[2018-01-24] MEDS: BUPROPION 100 MG TAB PO (08:04)
[2018-01-24] MEDS: SOD FERRIC GLUC COMPLX 125 MG in SOD CHLORIDE 0.9% 100 ML IVPB (16:09)
[2018-01-24] MEDS: TAMSULOSIN (SR) 0.4 MG CAP PO (21:17)
[2018-01-24] MEDS: CALCIUM CARBONATE 500 MG CHEW TAB PO (21:17)
[2018-01-25] MEDS: ACCU-CHEK XX (02:30)
[2018-01-25] MEDS: morphine 2 MG INJ IV ×4 (02:45→16:00)
[2018-01-25] MEDS: BUPROPION 100 MG TAB PO (07:33)
[2018-01-25] MEDS: METHYLPREDNISOLONE 40 MG INJ IV (07:33)
[2018-01-25] MEDS: LANTHANUM 500 MG CHEW PO ×3 (07:33→17:20)
[2018-01-25] MEDS: CALCIUM ACETATE 667 MG CAP NGT ×3 (07:34→17:20)
[2018-01-25] MEDS: CALCIUM CARBONATE 500 MG CHEW TAB PO ×2 (07:34→20:23)
[2018-01-25] MEDS: GENTAMICIN 0.1% 15 GM OINT TOP ×3 (07:35→20:24)
[2018-01-25] MEDS: COLLAGENASE 30 GM TUBE TOP (07:35)
[2018-01-25] MEDS: NYSTATIN 15 GM POWDER BTL TOP ×2 (07:35→20:24)
[2018-01-25] MEDS: INSULIN ASPART [NOVOLOG] 3 ML PEN SC ×4 (07:41→20:24)
[2018-01-25] MEDS: SODIUM HYPOCHLORITE 1/40% 1L IRRIG IRR ×2 (07:42→20:24)
[2018-01-25 07:43] LABS: ANION GAP 18 (8-16); BLOOD UREA NITROGEN 76 mg/dl (7-20); CARBON DIOXIDE 28 mmol/L (21-31); CHLORIDE 103 mmol/L (97-110); CREATININE 4.11 mg/dl (0.61-1.24); GLUCOSE 98 mg/dl (70-220); POTASSIUM 3.8 mmol/L (3.5-5.1); SODIUM 145 mmol/L (135-144)
[2018-01-25] MEDS: hydrALAzine 20 MG INJ IV (11:01)
[2018-01-25] MEDS: LIDOCAINE 1% (MPF) 5 ML VIAL SC (15:26)
[2018-01-25] MEDS: SOD FERRIC GLUC COMPLX 125 MG in SOD CHLORIDE 0.9% 100 ML IVPB (15:59)
[2018-01-25] MEDS: DOXYCYCLINE 100 MG TAB PO (20:22)
[2018-01-25] MEDS: TAMSULOSIN (SR) 0.4 MG CAP PO (20:23)
[2018-01-25] MEDS: predniSONE 20 MG TAB PO (20:23)
[2018-01-25] MEDS ORDERED: morphine 2 MG INJ IM (21:30)
[2018-01-25] MEDS: morphine LIQ (10 MG/5 ML) CUP PO (21:52)
[2018-01-26] MEDS: ACCU-CHEK XX (02:00)
[2018-01-26] MEDS: morphine LIQ (10 MG/5 ML) CUP PO ×5 (03:15→23:36)
[2018-01-26 06:08] LABS: ADD MAN DIFF? NO
[2018-01-26 06:12] LABS: ABNORMAL IP MESSAGE 1; HEMOGLOBIN 8.7 g/dl (14.0-18.0); LYMPHOCYTES # 0.5 10^3/ul (0.8-2.9); LYMPHOCYTES % 4.6 % (15.0-51.0); MEAN CORPUSCULAR HEMOGLOBIN 29.4 pg (29.0-33.0); MEAN CORPUSCULAR HGB CONC 32.2 g/dl (32.0-37.0); MEAN CORPUSCULAR VOLUME 91.2 fl (82.0-101.0); MEAN PLATELET VOLUME 8.7 fl (7.4-10.4); MONOCYTE # 0.2 10^3/ul (0.3-0.9); MONOCYTES % 2.3 % (0.0-11.0); NEUTROPHIL # 9.3 10^3/ul (1.6-7.5); NEUTROPHILS % 92.5 % (39.0-77.0); PLATELET COUNT 570 10^3/UL (140-415); POSITIVE DIFF @See below; RED BLOOD COUNT 2.96 10^6/ul (4.70-6.10); RED CELL DISTRIBUTION WIDTH 14.3 % (11.5-14.5)
[2018-01-26 06:12] LABS: WHITE BLOOD COUNT 10.1 10^3/ul (4.8-10.8)
[2018-01-26 06:27] LABS: PARTIAL THROMBOPLASTIN TIME 26.6 Sec (25.0-35.0)
[2018-01-26 08:03] LABS: ALANINE AMINOTRANSFERASE 33 IU/L (13-69); ALBUMIN 2.8 g/dl (3.3-4.9); ALBUMIN/GLOBULIN RATIO 0.87; ALKALINE PHOSPHATASE 64 IU/L (42-121); ANION GAP 17 (8-16); ASPARTATE AMINO TRANSFERASE 22 IU/L (15-46); BLOOD UREA NITROGEN 72 mg/dl (7-20); CALCIUM 8.7 mg/dl (8.4-10.2); CARBON DIOXIDE 29 mmol/L (21-31); CHLORIDE 101 mmol/L (97-110); CREATININE 3.61 mg/dl (0.61-1.24); GLUCOSE 164 mg/dl (70-220); POTASSIUM 4.5 mmol/L (3.5-5.1); SODIUM 142 mmol/L (135-144)
[2018-01-26] MEDS: CALCIUM ACETATE 667 MG CAP NGT ×3 (08:23→17:16)
[2018-01-26] MEDS: LANTHANUM 500 MG CHEW PO ×3 (08:23→17:16)
[2018-01-26] MEDS: predniSONE 20 MG TAB PO (08:23)
[2018-01-26] MEDS: INSULIN ASPART [NOVOLOG] 3 ML PEN SC ×4 (08:26→21:00)
[2018-01-26] MEDS: DOXYCYCLINE 100 MG TAB PO ×2 (08:26→21:10)
[2018-01-26] MEDS: BUPROPION 100 MG TAB PO (08:28)
[2018-01-26] MEDS: COLLAGENASE 30 GM TUBE TOP (09:00)
[2018-01-26] MEDS: NYSTATIN 15 GM POWDER BTL TOP ×2 (09:00→21:00)
[2018-01-26] MEDS: CALCIUM CARBONATE 500 MG CHEW TAB PO ×2 (09:17→21:00)
[2018-01-26] MEDS: GENTAMICIN 0.1% 15 GM OINT TOP ×3 (13:00→21:12)
[2018-01-26] MEDS: METOPROLOL 25 MG TAB PO ×2 (14:21→21:11)
[2018-01-26] MEDS: SODIUM HYPOCHLORITE 1/40% 1L IRRIG IRR ×2 (14:45→21:12)
[2018-01-26] MEDS: LIDOCAINE 1% (MPF) 5 ML VIAL SC (15:25)
[2018-01-26] MEDS: SOD FERRIC GLUC COMPLX 125 MG in SOD CHLORIDE 0.9% 100 ML IVPB (17:10)
[2018-01-26] MEDS: TAMSULOSIN (SR) 0.4 MG CAP PO (21:09)
[2018-01-26] MEDS: predniSONE 10 MG TAB PO (21:10)
[2018-01-27] MEDS: ACCU-CHEK XX (01:35)
[2018-01-27] MEDS: morphine LIQ (10 MG/5 ML) CUP PO (04:10)
[2018-01-27] MEDS: INSULIN ASPART [NOVOLOG] 3 ML PEN SC ×4 (09:00→20:44)
[2018-01-27] MEDS: predniSONE 10 MG TAB PO (09:21)
[2018-01-27] MEDS: CALCIUM CARBONATE 500 MG CHEW TAB PO ×2 (09:21→20:45)
[2018-01-27] MEDS: DOXYCYCLINE 100 MG TAB PO ×2 (09:21→20:45)
[2018-01-27] MEDS: BUPROPION 100 MG TAB PO (09:21)
[2018-01-27] MEDS: LANTHANUM 500 MG CHEW PO ×2 (09:22→12:06)
[2018-01-27] MEDS: CALCIUM ACETATE 667 MG CAP NGT ×3 (09:22→18:06)
[2018-01-27] MEDS: METOPROLOL 25 MG TAB PO ×2 (09:24→20:46)
[2018-01-27] MEDS: SODIUM HYPOCHLORITE 1/40% 1L IRRIG IRR ×2 (09:24→20:48)
[2018-01-27] MEDS: NYSTATIN 15 GM POWDER BTL TOP ×2 (09:24→21:00)
[2018-01-27] MEDS: GENTAMICIN 0.1% 15 GM OINT TOP ×3 (09:24→20:45)
[2018-01-27] MEDS: COLLAGENASE 30 GM TUBE TOP (09:26)
[2018-01-27] MEDS: morphine 2 MG INJ IV ×3 (09:38→19:03)
[2018-01-27 12:04] LABS: ADD MAN DIFF? NO
[2018-01-27 12:11] LABS: BASOPHILS % 0.1 % (0.0-2.0); HEMATOCRIT 27.6 % (42.0-52.0); HEMOGLOBIN 8.8 g/dl (14.0-18.0); LYMPHOCYTES # 1.1 10^3/ul (0.8-2.9); LYMPHOCYTES % 7.2 % (15.0-51.0); MEAN CORPUSCULAR HEMOGLOBIN 29.6 pg (29.0-33.0); MEAN CORPUSCULAR HGB CONC 31.9 g/dl (32.0-37.0); MEAN CORPUSCULAR VOLUME 92.9 fl (82.0-101.0); MEAN PLATELET VOLUME 8.8 fl (7.4-10.4); MONOCYTE # 1.3 10^3/ul (0.3-0.9); NEUTROPHIL # 12.4 10^3/ul (1.6-7.5); NEUTROPHILS % 83.1 % (39.0-77.0); PLATELET COUNT 597 10^3/UL (140-415); RED BLOOD COUNT 2.97 10^6/ul (4.70-6.10); RED CELL DISTRIBUTION WIDTH 14.5 % (11.5-14.5)
[2018-01-27 12:11] LABS: WHITE BLOOD COUNT 14.9 10^3/ul (4.8-10.8)
[2018-01-27 12:45] LABS: PHOSPHORUS 4.4 mg/dl (2.5-4.9)
[2018-01-27 12:45] LABS: ANION GAP 12 (8-16); BLOOD UREA NITROGEN 71 mg/dl (7-20); CALCIUM 8.1 mg/dl (8.4-10.2); CARBON DIOXIDE 36 mmol/L (21-31); CHLORIDE 99 mmol/L (97-110); CREATININE 2.94 mg/dl (0.61-1.24); GLUCOSE 156 mg/dl (70-220); MAGNESIUM 1.7 mg/dl (1.7-2.5); POTASSIUM 3.7 mmol/L (3.5-5.1); SODIUM 143 mmol/L (135-144)
[2018-01-27] MEDS ORDERED: CEPASTAT LOZENGE MT (15:30)
[2018-01-27] MEDS: FUROSEMIDE 40 MG INJ IV (18:06)
[2018-01-27] MEDS: SOD FERRIC GLUC COMPLX 125 MG in SOD CHLORIDE 0.9% 100 ML IVPB (18:07)
[2018-01-27] MEDS: predniSONE 20 MG TAB PO (20:46)
[2018-01-27] MEDS: TAMSULOSIN (SR) 0.4 MG CAP PO (20:46)
[2018-01-28] MEDS: morphine 2 MG INJ IV ×4 (02:13→17:17)
[2018-01-28] MEDS: ACCU-CHEK XX (02:13)
[2018-01-28] MEDS: CALCIUM ACETATE 667 MG CAP NGT (07:59)
[2018-01-28] MEDS: INSULIN ASPART [NOVOLOG] 3 ML PEN SC ×4 (08:00→20:57)
[2018-01-28 08:29] LABS: ADD MAN DIFF? NO
[2018-01-28 08:32] LABS: WHITE BLOOD COUNT 14.8 10^3/ul (4.8-10.8)
[2018-01-28 08:32] LABS: BASOPHILS % 0.1 % (0.0-2.0); HEMATOCRIT 26.5 % (42.0-52.0); HEMOGLOBIN 8.3 g/dl (14.0-18.0); LYMPHOCYTES # 1.2 10^3/ul (0.8-2.9); LYMPHOCYTES % 8.3 % (15.0-51.0); MEAN CORPUSCULAR HEMOGLOBIN 29.4 pg (29.0-33.0); MEAN CORPUSCULAR HGB CONC 31.3 g/dl (32.0-37.0); MONOCYTE # 1.3 10^3/ul (0.3-0.9); MONOCYTES % 8.9 % (0.0-11.0); NEUTROPHIL # 12.1 10^3/ul (1.6-7.5); NEUTROPHILS % 81.4 % (39.0-77.0); PLATELET COUNT 517 10^3/UL (140-415); RED BLOOD COUNT 2.82 10^6/ul (4.70-6.10); RED CELL DISTRIBUTION WIDTH 14.5 % (11.5-14.5)
[2018-01-28 08:55] LABS: MAGNESIUM 1.5 mg/dl (1.7-2.5)
[2018-01-28 09:00] LABS: ANION GAP 11 (8-16); BLOOD UREA NITROGEN 71 mg/dl (7-20); CARBON DIOXIDE 38 mmol/L (21-31); CHLORIDE 98 mmol/L (97-110); CREATININE 2.51 mg/dl (0.61-1.24); GLUCOSE 117 mg/dl (70-220); POTASSIUM 3.7 mmol/L (3.5-5.1); SODIUM 143 mmol/L (135-144)
[2018-01-28] MEDS: BUPROPION 100 MG TAB PO (09:37)
[2018-01-28] MEDS: DOXYCYCLINE 100 MG TAB PO ×2 (09:37→21:06)
[2018-01-28] MEDS: predniSONE 20 MG TAB PO ×2 (09:37→21:06)
[2018-01-28] MEDS: CALCIUM CARBONATE 500 MG CHEW TAB PO ×2 (09:37→21:06)
[2018-01-28] MEDS: METOPROLOL 25 MG TAB PO ×2 (09:38→21:05)
[2018-01-28] MEDS: SODIUM HYPOCHLORITE 1/40% 1L IRRIG IRR ×2 (09:38→21:05)
[2018-01-28] MEDS: NYSTATIN 15 GM POWDER BTL TOP ×2 (09:39→21:06)
[2018-01-28] MEDS: COLLAGENASE 30 GM TUBE TOP (09:39)
[2018-01-28] MEDS: GENTAMICIN 0.1% 15 GM OINT TOP ×3 (09:39→21:00)
[2018-01-28] MEDS: MAGNESIUM SULFATE 3 GM in DEXTROSE 5% 100 ML IVPB (12:00)
[2018-01-28] MEDS: FUROSEMIDE 40 MG INJ IV (12:29)
[2018-01-28] MEDS: SOD FERRIC GLUC COMPLX 125 MG in SOD CHLORIDE 0.9% 100 ML IVPB (17:19)
[2018-01-28] MEDS: TAMSULOSIN (SR) 0.4 MG CAP PO (21:05)
[2018-01-29] MEDS: GENTAMICIN 0.1% 15 GM OINT TOP ×4 (00:22→21:19)
[2018-01-29] MEDS: ACCU-CHEK XX (02:00)
[2018-01-29] MEDS: morphine 2 MG INJ IV (07:13)
[2018-01-29] MEDS: INSULIN ASPART [NOVOLOG] 3 ML PEN SC ×4 (08:00→21:00)
[2018-01-29] MEDS: SODIUM HYPOCHLORITE 1/40% 1L IRRIG IRR ×2 (09:15→21:20)
[2018-01-29] MEDS: CALCIUM CARBONATE 500 MG CHEW TAB PO ×2 (09:16→21:17)
[2018-01-29] MEDS: METOPROLOL 25 MG TAB PO ×2 (09:16→21:19)
[2018-01-29] MEDS: NYSTATIN 15 GM POWDER BTL TOP ×2 (09:16→21:19)
[2018-01-29] MEDS: BUPROPION 100 MG TAB PO (09:16)
[2018-01-29] MEDS: predniSONE 20 MG TAB PO (09:16)
[2018-01-29] MEDS: DOXYCYCLINE 100 MG TAB PO ×2 (09:16→21:19)
[2018-01-29] MEDS: COLLAGENASE 30 GM TUBE TOP (09:17)
[2018-01-29] MEDS: morphine LIQ (10 MG/5 ML) CUP PO (09:26)
[2018-01-29 17:35] LABS: ADD MAN DIFF? NO
[2018-01-29 17:36] LABS: WHITE BLOOD COUNT 19.6 10^3/ul (4.8-10.8)
[2018-01-29 17:36] LABS: BASOPHILS % 0.1 % (0.0-2.0); HEMATOCRIT 28.6 % (42.0-52.0); LYMPHOCYTES # 0.8 10^3/ul (0.8-2.9); LYMPHOCYTES % 4.1 % (15.0-51.0); MEAN CORPUSCULAR HEMOGLOBIN 29.7 pg (29.0-33.0); MEAN CORPUSCULAR HGB CONC 31.5 g/dl (32.0-37.0); MEAN CORPUSCULAR VOLUME 94.4 fl (82.0-101.0); MEAN PLATELET VOLUME 9.1 fl (7.4-10.4); MONOCYTE # 1.1 10^3/ul (0.3-0.9); MONOCYTES % 5.4 % (0.0-11.0); NEUTROPHIL # 17.5 10^3/ul (1.6-7.5); NEUTROPHILS % 89.2 % (39.0-77.0); PLATELET COUNT 610 10^3/UL (140-415); RED BLOOD COUNT 3.03 10^6/ul (4.70-6.10); RED CELL DISTRIBUTION WIDTH 14.4 % (11.5-14.5)
[2018-01-29 17:44] LABS: ANION GAP 15 (8-16); BLOOD UREA NITROGEN 68 mg/dl (7-20); CALCIUM 8.6 mg/dl (8.4-10.2); CARBON DIOXIDE 36 mmol/L (21-31); CHLORIDE 98 mmol/L (97-110); CREATININE 2.27 mg/dl (0.61-1.24); GLUCOSE 165 mg/dl (70-220); POTASSIUM 3.6 mmol/L (3.5-5.1); SODIUM 145 mmol/L (135-144)
[2018-01-29] MEDS: FUROSEMIDE 40 MG INJ IV (17:53)
[2018-01-29] MEDS: TAMSULOSIN (SR) 0.4 MG CAP PO (21:17)
[2018-01-30] MEDS: morphine LIQ (10 MG/5 ML) CUP PO ×5 (00:09→21:17)
[2018-01-30] MEDS: FLUCONAZOLE 100 MG TAB PO ×2 (00:11→08:56)
[2018-01-30] MEDS: ACCU-CHEK XX (02:00)
[2018-01-30] MEDS: ALTEPLASE (CATHFLO) 2 MG INJ CATHETER (06:30)
[2018-01-30 07:45] LABS: ADD MAN DIFF? NO
[2018-01-30 07:49] LABS: WHITE BLOOD COUNT 22.5 10^3/ul (4.8-10.8)
[2018-01-30 07:49] LABS: ABNORMAL IP MESSAGE 1; BASOPHILS % 0.1 % (0.0-2.0); EOSINOPHILS # 0.2 10^3/ul (0.0-0.5); EOSINOPHILS % 1.1 % (0.0-7.0); HEMATOCRIT 28.2 % (42.0-52.0); HEMOGLOBIN 8.8 g/dl (14.0-18.0); LYMPHOCYTES # 1.9 10^3/ul (0.8-2.9); LYMPHOCYTES % 8.5 % (15.0-51.0); MEAN CORPUSCULAR HEMOGLOBIN 29.5 pg (29.0-33.0); MEAN CORPUSCULAR HGB CONC 31.2 g/dl (32.0-37.0); MEAN CORPUSCULAR VOLUME 94.6 fl (82.0-101.0); MONOCYTE # 2.1 10^3/ul (0.3-0.9); MONOCYTES % 9.2 % (0.0-11.0); NEUTROPHILS % 80.2 % (39.0-77.0); PLATELET COUNT 551 10^3/UL (140-415); POSITIVE DIFF @See below; RED BLOOD COUNT 2.98 10^6/ul (4.70-6.10); RED CELL DISTRIBUTION WIDTH 14.6 % (11.5-14.5)
[2018-01-30] MEDS: INSULIN ASPART [NOVOLOG] 3 ML PEN SC ×4 (08:02→21:00)
[2018-01-30 08:13] LABS: MAGNESIUM 1.6 mg/dl (1.7-2.5)
[2018-01-30 08:13] LABS: PHOSPHORUS 4.1 mg/dl (2.5-4.9)
[2018-01-30 08:14] LABS: ANION GAP 14 (8-16); BLOOD UREA NITROGEN 69 mg/dl (7-20); CALCIUM 8.9 mg/dl (8.4-10.2); CARBON DIOXIDE 35 mmol/L (21-31); CHLORIDE 99 mmol/L (97-110); CREATININE 2.15 mg/dl (0.61-1.24); GLUCOSE 94 mg/dl (70-220); POTASSIUM 3.5 mmol/L (3.5-5.1); SODIUM 144 mmol/L (135-144)
[2018-01-30] MEDS: CALCIUM CARBONATE 500 MG CHEW TAB PO ×2 (08:56→21:17)
[2018-01-30] MEDS: DOXYCYCLINE 100 MG TAB PO ×2 (08:56→21:09)
[2018-01-30] MEDS: BUPROPION 100 MG TAB PO (08:56)
[2018-01-30] MEDS: predniSONE 20 MG TAB PO (08:56)
[2018-01-30] MEDS: METOPROLOL 25 MG TAB PO ×2 (08:58→21:11)
[2018-01-30] MEDS: COLLAGENASE 30 GM TUBE TOP (09:00)
[2018-01-30] MEDS: FUROSEMIDE 40 MG INJ IV (09:01)
[2018-01-30] MEDS: NYSTATIN 15 GM POWDER BTL TOP ×2 (09:06→21:12)
[2018-01-30] MEDS: GENTAMICIN 0.1% 15 GM OINT TOP ×3 (09:07→21:12)
[2018-01-30] MEDS: SODIUM HYPOCHLORITE 1/40% 1L IRRIG IRR ×2 (09:09→21:11)
[2018-01-30] MEDS: MAGNESIUM SULFATE 2 GM/50 ML 50 ML IVPB (11:25)
[2018-01-30] MEDS: MEROPENEM 500MG/50 ML (PMX) 50 ML IVPB ×2 (13:47→21:11)
[2018-01-30] MEDS: TAMSULOSIN (SR) 0.4 MG CAP PO (21:09)
[2018-01-31] MEDS: ACCU-CHEK XX (02:00)
[2018-01-31] MEDS: morphine LIQ (10 MG/5 ML) CUP PO ×4 (02:27→20:44)
[2018-01-31] MEDS: INSULIN ASPART [NOVOLOG] 3 ML PEN SC ×2 (08:15→12:15)
[2018-01-31] MEDS: MEROPENEM 500MG/50 ML (PMX) 50 ML IVPB ×2 (08:21→20:50)
[2018-01-31] MEDS: FUROSEMIDE 40 MG INJ IV (08:22)
[2018-01-31] MEDS: METOPROLOL 25 MG TAB PO ×2 (08:22→20:42)
[2018-01-31] MEDS: BUPROPION 100 MG TAB PO (08:22)
[2018-01-31] MEDS: predniSONE 10 MG TAB PO (08:23)
[2018-01-31] MEDS: FLUCONAZOLE 100 MG TAB PO (08:23)
[2018-01-31] MEDS: DOXYCYCLINE 100 MG TAB PO ×2 (08:23→20:40)
[2018-01-31] MEDS: CALCIUM CARBONATE 500 MG CHEW TAB PO ×2 (08:23→20:39)
[2018-01-31] MEDS: GENTAMICIN 0.1% 15 GM OINT TOP ×3 (08:24→20:43)
[2018-01-31] MEDS: NYSTATIN 15 GM POWDER BTL TOP ×2 (08:25→20:42)
[2018-01-31] MEDS: COLLAGENASE 30 GM TUBE TOP (08:27)
[2018-01-31] MEDS: SODIUM HYPOCHLORITE 1/40% 1L IRRIG IRR ×2 (12:50→20:44)
[2018-01-31] MEDS: NYSTATIN SUSP 5 ML CUP PO ×2 (19:05→20:39)
[2018-01-31] MEDS: AMLODIPINE 5 MG TAB PO (19:06)
[2018-01-31] MEDS: TAMSULOSIN (SR) 0.4 MG CAP PO (20:40)
[2018-02-01] MEDS: morphine LIQ (10 MG/5 ML) CUP PO ×4 (01:14→21:27)
[2018-02-01 06:26] LABS: ADD MAN DIFF? NO
[2018-02-01 06:34] LABS: WHITE BLOOD COUNT 18.5 10^3/ul (4.8-10.8)
[2018-02-01 06:34] LABS: ABNORMAL IP MESSAGE 1; BASOPHILS % 0.1 % (0.0-2.0); EOSINOPHILS # 0.3 10^3/ul (0.0-0.5); EOSINOPHILS % 1.5 % (0.0-7.0); HEMATOCRIT 26.7 % (42.0-52.0); HEMOGLOBIN 8.2 g/dl (14.0-18.0); LYMPHOCYTES # 2.4 10^3/ul (0.8-2.9); LYMPHOCYTES % 13.2 % (15.0-51.0); MEAN CORPUSCULAR HEMOGLOBIN 29.3 pg (29.0-33.0); MEAN CORPUSCULAR HGB CONC 30.7 g/dl (32.0-37.0); MEAN CORPUSCULAR VOLUME 95.4 fl (82.0-101.0); MEAN PLATELET VOLUME 9.7 fl (7.4-10.4); MONOCYTE # 1.9 10^3/ul (0.3-0.9); MONOCYTES % 10.3 % (0.0-11.0); NEUTROPHIL # 13.6 10^3/ul (1.6-7.5); NEUTROPHILS % 73.8 % (39.0-77.0); PLATELET COUNT 430 10^3/UL (140-415); POSITIVE DIFF @See below; RED CELL DISTRIBUTION WIDTH 14.8 % (11.5-14.5)
[2018-02-01 07:02] LABS: LACTIC ACID 0.9 mmol/L (0.5-2.0)
[2018-02-01 07:04] LABS: ANION GAP 11 (8-16); BLOOD UREA NITROGEN 60 mg/dl (7-20); CALCIUM 8.4 mg/dl (8.4-10.2); CARBON DIOXIDE 39 mmol/L (21-31); CHLORIDE 96 mmol/L (97-110); CREATININE 1.91 mg/dl (0.61-1.24); GLUCOSE 90 mg/dl (70-220); POTASSIUM 3.3 mmol/L (3.5-5.1); SODIUM 143 mmol/L (135-144)
[2018-02-01] MEDS: COLLAGENASE 30 GM TUBE TOP (09:00)
[2018-02-01] MEDS: NYSTATIN SUSP 5 ML CUP PO ×3 (09:24→21:25)
[2018-02-01] MEDS: DOXYCYCLINE 100 MG TAB PO ×2 (09:25→21:26)
[2018-02-01] MEDS: FLUCONAZOLE 100 MG TAB PO (09:25)
[2018-02-01] MEDS: SODIUM HYPOCHLORITE 1/40% 1L IRRIG IRR ×2 (09:25→21:25)
[2018-02-01] MEDS: GENTAMICIN 0.1% 15 GM OINT TOP ×3 (09:25→21:00)
[2018-02-01] MEDS: CALCIUM CARBONATE 500 MG CHEW TAB PO ×2 (09:25→21:26)
[2018-02-01] MEDS: BUPROPION 100 MG TAB PO (09:25)
[2018-02-01] MEDS: METOPROLOL 25 MG TAB PO ×2 (09:27→21:26)
[2018-02-01] MEDS: FUROSEMIDE 40 MG INJ IV (09:27)
[2018-02-01] MEDS: AMLODIPINE 5 MG TAB PO (09:28)
[2018-02-01] MEDS: predniSONE 10 MG TAB PO (09:28)
[2018-02-01] MEDS: NYSTATIN 15 GM POWDER BTL TOP ×2 (09:29→21:40)
[2018-02-01] MEDS: MEROPENEM 500MG/50 ML (PMX) 50 ML IVPB ×2 (09:39→21:34)
[2018-02-01] MEDS: POTASSIUM CHLORIDE (SR) 10 MEQ TAB PO (15:43)
[2018-02-01] MEDS: TAMSULOSIN (SR) 0.4 MG CAP PO (21:26)
[2018-02-02] MEDS: morphine LIQ (10 MG/5 ML) CUP PO ×2 (05:36→20:29)
[2018-02-02 06:45] LABS: ANION GAP 9 (8-16); BLOOD UREA NITROGEN 53 mg/dl (7-20); CARBON DIOXIDE 39 mmol/L (21-31); CHLORIDE 99 mmol/L (97-110); CREATININE 1.87 mg/dl (0.61-1.24); GLUCOSE 140 mg/dl (70-220); SODIUM 144 mmol/L (135-144)
[2018-02-02] MEDS: COLLAGENASE 30 GM TUBE TOP (09:00)
[2018-02-02] MEDS: MEROPENEM 500MG/50 ML (PMX) 50 ML IVPB ×2 (09:39→20:27)
[2018-02-02] MEDS: NYSTATIN SUSP 5 ML CUP PO ×3 (09:40→20:27)
[2018-02-02] MEDS: FLUCONAZOLE 100 MG TAB PO (09:40)
[2018-02-02] MEDS: GENTAMICIN 0.1% 15 GM OINT TOP ×3 (09:40→20:33)
[2018-02-02] MEDS: predniSONE 10 MG TAB PO (09:41)
[2018-02-02] MEDS: CALCIUM CARBONATE 500 MG CHEW TAB PO ×2 (09:41→20:27)
[2018-02-02] MEDS: DOXYCYCLINE 100 MG TAB PO ×2 (09:41→20:27)
[2018-02-02] MEDS: BUPROPION 100 MG TAB PO (09:41)
[2018-02-02] MEDS: METOPROLOL 25 MG TAB PO ×2 (09:42→20:27)
[2018-02-02] MEDS: AMLODIPINE 5 MG TAB PO (09:43)
[2018-02-02] MEDS: FUROSEMIDE 40 MG INJ IV (09:43)
[2018-02-02] MEDS: SODIUM HYPOCHLORITE 1/40% 1L IRRIG IRR ×2 (09:44→20:32)
[2018-02-02] MEDS: NYSTATIN 15 GM POWDER BTL TOP ×2 (09:45→20:32)
[2018-02-02] MEDS: POTASSIUM CHLORIDE (SR) 20 MEQ TAB PO (20:26)
[2018-02-02] MEDS: TAMSULOSIN (SR) 0.4 MG CAP PO (20:27)
[2018-02-02] MEDS: ACETAZOLAMIDE 250 MG TAB PO (20:27)
[2018-02-03] MEDS: SODIUM HYPOCHLORITE 1/40% 1L IRRIG IRR ×3 (05:18→20:47)
[2018-02-03] MEDS: morphine LIQ (10 MG/5 ML) CUP PO ×4 (05:18→20:30)
[2018-02-03] MEDS: GENTAMICIN 0.1% 15 GM OINT TOP ×4 (05:18→20:47)
[2018-02-03 06:11] LABS: ALANINE AMINOTRANSFERASE 35 IU/L (13-69); ALBUMIN 2.7 g/dl (3.3-4.9); ALBUMIN/GLOBULIN RATIO 0.87; ALKALINE PHOSPHATASE 65 IU/L (42-121); ANION GAP 12 (8-16); ASPARTATE AMINO TRANSFERASE 20 IU/L (15-46); BLOOD UREA NITROGEN 42 mg/dl (7-20); CALCIUM 8.1 mg/dl (8.4-10.2); CARBON DIOXIDE 37 mmol/L (21-31); CHLORIDE 98 mmol/L (97-110); CREATININE 1.83 mg/dl (0.61-1.24); GLUCOSE 99 mg/dl (70-220); SODIUM 144 mmol/L (135-144); TOTAL PROTEIN 5.8 g/dl (6.1-8.1)
[2018-02-03] MEDS: COLLAGENASE 30 GM TUBE TOP (09:00)
[2018-02-03] MEDS: MEROPENEM 500MG/50 ML (PMX) 50 ML IVPB ×2 (09:42→20:29)
[2018-02-03] MEDS: FLUCONAZOLE 100 MG TAB PO (09:43)
[2018-02-03] MEDS: ACETAZOLAMIDE 250 MG TAB PO ×2 (09:43→20:29)
[2018-02-03] MEDS: BUPROPION 100 MG TAB PO (09:43)
[2018-02-03] MEDS: CALCIUM CARBONATE 500 MG CHEW TAB PO ×2 (09:43→20:30)
[2018-02-03] MEDS: NYSTATIN 15 GM POWDER BTL TOP ×2 (09:44→20:47)
[2018-02-03] MEDS: AMLODIPINE 5 MG TAB PO (09:46)
[2018-02-03] MEDS: FUROSEMIDE 40 MG INJ IV (09:46)
[2018-02-03] MEDS: NYSTATIN SUSP 5 ML CUP PO ×3 (09:56→20:47)
[2018-02-03] MEDS: predniSONE 10 MG TAB PO (09:56)
[2018-02-03] MEDS: POTASSIUM CHLORIDE (SR) 20 MEQ TAB PO ×2 (09:56→20:29)
[2018-02-03] MEDS: METOPROLOL 25 MG TAB PO ×2 (09:57→20:28)
[2018-02-03] MEDS: DOXYCYCLINE 100 MG TAB PO ×2 (12:26→20:47)
[2018-02-03] MEDS ORDERED: POTASSIUM CHLORIDE 50 ML IVPB (15:30)
[2018-02-03] MEDS: POTASSIUM CHLORIDE 20 MEQ/SW 100 ML IVPB ×2 (16:38→18:42)
[2018-02-03] MEDS: TAMSULOSIN (SR) 0.4 MG CAP PO (20:30)
[2018-02-04] MEDS: DOXYCYCLINE 100 MG TAB PO ×3 (00:27→21:34)
[2018-02-04] MEDS: morphine LIQ (10 MG/5 ML) CUP PO ×2 (05:35→20:07)
[2018-02-04] MEDS: SODIUM HYPOCHLORITE 1/40% 1L IRRIG IRR ×3 (05:36→20:13)
[2018-02-04] MEDS: NYSTATIN 15 GM POWDER BTL TOP ×3 (05:36→20:13)
[2018-02-04] MEDS: GENTAMICIN 0.1% 15 GM OINT TOP ×4 (05:36→20:14)
[2018-02-04 05:52] LABS: ADD MAN DIFF? NO
[2018-02-04 06:06] LABS: BASOPHILS % 0.1 % (0.0-2.0); EOSINOPHILS # 0.1 10^3/ul (0.0-0.5); HEMATOCRIT 28.4 % (42.0-52.0); HEMOGLOBIN 8.7 g/dl (14.0-18.0); LYMPHOCYTES # 2.2 10^3/ul (0.8-2.9); MEAN CORPUSCULAR HEMOGLOBIN 29.3 pg (29.0-33.0); MEAN CORPUSCULAR HGB CONC 30.6 g/dl (32.0-37.0); MEAN CORPUSCULAR VOLUME 95.6 fl (82.0-101.0); MEAN PLATELET VOLUME 9.5 fl (7.4-10.4); MONOCYTE # 1.3 10^3/ul (0.3-0.9); MONOCYTES % 9.3 % (0.0-11.0); NEUTROPHIL # 9.9 10^3/ul (1.6-7.5); PLATELET COUNT 384 10^3/UL (140-415); RED BLOOD COUNT 2.97 10^6/ul (4.70-6.10); RED CELL DISTRIBUTION WIDTH 14.9 % (11.5-14.5)
[2018-02-04 06:06] LABS: WHITE BLOOD COUNT 13.5 10^3/ul (4.8-10.8)
[2018-02-04 06:40] LABS: ANION GAP 12 (8-16); BLOOD UREA NITROGEN 40 mg/dl (7-20); CARBON DIOXIDE 35 mmol/L (21-31); CHLORIDE 101 mmol/L (97-110); CREATININE 1.79 mg/dl (0.61-1.24); GLUCOSE 102 mg/dl (70-220); POTASSIUM 3.2 mmol/L (3.5-5.1); SODIUM 145 mmol/L (135-144)
[2018-02-04] MEDS: MEROPENEM 500MG/50 ML (PMX) 50 ML IVPB ×2 (08:32→21:34)
[2018-02-04] MEDS: POTASSIUM CHLORIDE (SR) 20 MEQ TAB PO ×2 (08:33→20:08)
[2018-02-04] MEDS: FLUCONAZOLE 100 MG TAB PO (08:33)
[2018-02-04] MEDS: NYSTATIN SUSP 5 ML CUP PO ×3 (08:33→20:12)
[2018-02-04] MEDS: CALCIUM CARBONATE 500 MG CHEW TAB PO ×2 (08:33→20:08)
[2018-02-04] MEDS: BUPROPION 100 MG TAB PO (08:33)
[2018-02-04] MEDS: predniSONE 10 MG TAB PO (08:33)
[2018-02-04] MEDS: ACETAZOLAMIDE 250 MG TAB PO (08:33)
[2018-02-04] MEDS: METOPROLOL 25 MG TAB PO ×2 (08:35→20:09)
[2018-02-04] MEDS: AMLODIPINE 5 MG TAB PO (08:35)
[2018-02-04] MEDS: FUROSEMIDE 40 MG INJ IV (08:35)
[2018-02-04] MEDS: COLLAGENASE 30 GM TUBE TOP (08:37)
[2018-02-04] MEDS ORDERED: POTASSIUM CHLORIDE 50 ML IVPB (11:00)
[2018-02-04 11:04] LABS: MAGNESIUM 1.7 mg/dl (1.7-2.5)
[2018-02-04] MEDS: POTASSIUM CHLORIDE 100 ML IVPB ×2 (14:35→17:18)
[2018-02-04] MEDS: TAMSULOSIN (SR) 0.4 MG CAP PO (20:07)
[2018-02-05] MEDS: morphine LIQ (10 MG/5 ML) CUP PO ×3 (05:41→19:44)
[2018-02-05 05:52] LABS: ADD MAN DIFF? NO
[2018-02-05 06:08] LABS: WHITE BLOOD COUNT 14.5 10^3/ul (4.8-10.8)
[2018-02-05 06:08] LABS: BASOPHILS % 0.1 % (0.0-2.0); EOSINOPHILS # 0.2 10^3/ul (0.0-0.5); EOSINOPHILS % 1.1 % (0.0-7.0); HEMATOCRIT 27.2 % (42.0-52.0); HEMOGLOBIN 8.4 g/dl (14.0-18.0); LYMPHOCYTES # 2.4 10^3/ul (0.8-2.9); LYMPHOCYTES % 16.5 % (15.0-51.0); MEAN CORPUSCULAR HEMOGLOBIN 29.9 pg (29.0-33.0); MEAN CORPUSCULAR HGB CONC 30.9 g/dl (32.0-37.0); MEAN CORPUSCULAR VOLUME 96.8 fl (82.0-101.0); MEAN PLATELET VOLUME 9.5 fl (7.4-10.4); MONOCYTE # 1.4 10^3/ul (0.3-0.9); MONOCYTES % 9.6 % (0.0-11.0); NEUTROPHIL # 10.5 10^3/ul (1.6-7.5); NEUTROPHILS % 72.1 % (39.0-77.0); PLATELET COUNT 303 10^3/UL (140-415); RED BLOOD COUNT 2.81 10^6/ul (4.70-6.10); RED CELL DISTRIBUTION WIDTH 14.7 % (11.5-14.5)
[2018-02-05 06:39] LABS: ANION GAP 11 (8-16); BLOOD UREA NITROGEN 42 mg/dl (7-20); CALCIUM 8.1 mg/dl (8.4-10.2); CARBON DIOXIDE 30 mmol/L (21-31); CHLORIDE 106 mmol/L (97-110); GLUCOSE 104 mg/dl (70-220); POTASSIUM 3.6 mmol/L (3.5-5.1); SODIUM 143 mmol/L (135-144)
[2018-02-05 06:46] LABS: MAGNESIUM 1.8 mg/dl (1.7-2.5)
[2018-02-05 06:46] LABS: PHOSPHORUS 3.6 mg/dl (2.5-4.9)
[2018-02-05] MEDS: CALCIUM CARBONATE 500 MG CHEW TAB PO ×2 (08:16→21:29)
[2018-02-05] MEDS: DOXYCYCLINE 100 MG TAB PO ×2 (08:16→22:41)
[2018-02-05] MEDS: SODIUM HYPOCHLORITE 1/40% 1L IRRIG IRR ×2 (08:16→21:31)
[2018-02-05] MEDS: POTASSIUM CHLORIDE (SR) 20 MEQ TAB PO ×2 (08:16→21:29)
[2018-02-05] MEDS: BUPROPION 100 MG TAB PO (08:16)
[2018-02-05] MEDS: FLUCONAZOLE 100 MG TAB PO (08:16)
[2018-02-05] MEDS: METOPROLOL 25 MG TAB PO ×2 (08:17→21:33)
[2018-02-05] MEDS: AMLODIPINE 5 MG TAB PO (08:18)
[2018-02-05] MEDS: NYSTATIN 15 GM POWDER BTL TOP ×2 (08:18→21:29)
[2018-02-05] MEDS: GENTAMICIN 0.1% 15 GM OINT TOP ×3 (08:18→21:30)
[2018-02-05] MEDS: predniSONE 5 MG TAB PO (08:18)
[2018-02-05] MEDS: NYSTATIN SUSP 5 ML CUP PO ×3 (08:21→21:30)
[2018-02-05] MEDS: COLLAGENASE 30 GM TUBE TOP (08:22)
[2018-02-05] MEDS: MEROPENEM 500MG/50 ML (PMX) 50 ML IVPB ×2 (10:01→21:29)
[2018-02-05] MEDS: TAMSULOSIN (SR) 0.4 MG CAP PO (21:29)
[2018-02-06 06:11] LABS: ADD MAN DIFF? NO
[2018-02-06 06:23] LABS: BASOPHILS % 0.2 % (0.0-2.0); EOSINOPHILS # 0.2 10^3/ul (0.0-0.5); EOSINOPHILS % 1.1 % (0.0-7.0); HEMATOCRIT 28.3 % (42.0-52.0); HEMOGLOBIN 8.8 g/dl (14.0-18.0); LYMPHOCYTES # 2.3 10^3/ul (0.8-2.9); LYMPHOCYTES % 14.6 % (15.0-51.0); MEAN CORPUSCULAR HEMOGLOBIN 29.6 pg (29.0-33.0); MEAN CORPUSCULAR HGB CONC 31.1 g/dl (32.0-37.0); MEAN CORPUSCULAR VOLUME 95.3 fl (82.0-101.0); MEAN PLATELET VOLUME 9.4 fl (7.4-10.4); MONOCYTE # 1.4 10^3/ul (0.3-0.9); NEUTROPHIL # 11.7 10^3/ul (1.6-7.5); NEUTROPHILS % 74.5 % (39.0-77.0); PLATELET COUNT 304 10^3/UL (140-415); RED BLOOD COUNT 2.97 10^6/ul (4.70-6.10); RED CELL DISTRIBUTION WIDTH 14.9 % (11.5-14.5)
[2018-02-06 06:23] LABS: WHITE BLOOD COUNT 15.7 10^3/ul (4.8-10.8)
[2018-02-06 07:02] LABS: ANION GAP 12 (8-16); BLOOD UREA NITROGEN 39 mg/dl (7-20); CALCIUM 8.3 mg/dl (8.4-10.2); CARBON DIOXIDE 28 mmol/L (21-31); CHLORIDE 108 mmol/L (97-110); CREATININE 1.66 mg/dl (0.61-1.24); GLUCOSE 84 mg/dl (70-220); SODIUM 144 mmol/L (135-144)
[2018-02-06] MEDS: COLLAGENASE 30 GM TUBE TOP (09:00)
[2018-02-06] MEDS: NYSTATIN SUSP 5 ML CUP PO ×3 (09:00→20:11)
[2018-02-06] MEDS: predniSONE 5 MG TAB PO (09:21)
[2018-02-06] MEDS: MEROPENEM 500MG/50 ML (PMX) 50 ML IVPB ×2 (09:21→20:18)
[2018-02-06] MEDS: BUPROPION 100 MG TAB PO (09:21)
[2018-02-06] MEDS: GENTAMICIN 0.1% 15 GM OINT TOP ×3 (09:22→20:15)
[2018-02-06] MEDS: CALCIUM CARBONATE 500 MG CHEW TAB PO ×2 (09:22→20:13)
[2018-02-06] MEDS: FLUCONAZOLE 100 MG TAB PO (09:22)
[2018-02-06] MEDS: METOPROLOL 25 MG TAB PO ×2 (09:22→20:13)
[2018-02-06] MEDS: AMLODIPINE 5 MG TAB PO (09:22)
[2018-02-06] MEDS: DOXYCYCLINE 100 MG TAB PO ×2 (09:22→20:11)
[2018-02-06] MEDS: NYSTATIN 15 GM POWDER BTL TOP ×2 (09:36→20:18)
[2018-02-06] MEDS: morphine LIQ (10 MG/5 ML) CUP PO ×3 (09:36→20:11)
[2018-02-06] MEDS: SODIUM HYPOCHLORITE 1/40% 1L IRRIG IRR ×2 (17:28→20:15)
[2018-02-06] MEDS: TAMSULOSIN (SR) 0.4 MG CAP PO (20:11)
[2018-02-07] MEDS: morphine LIQ (10 MG/5 ML) CUP PO ×4 (01:16→20:26)
[2018-02-07] MEDS: COLLAGENASE 30 GM TUBE TOP (09:00)
[2018-02-07] MEDS: NYSTATIN SUSP 5 ML CUP PO ×3 (09:20→20:46)
[2018-02-07] MEDS: DOXYCYCLINE 100 MG TAB PO ×2 (09:20→20:42)
[2018-02-07] MEDS: FLUCONAZOLE 100 MG TAB PO (09:20)
[2018-02-07] MEDS: predniSONE 5 MG TAB PO (09:21)
[2018-02-07] MEDS: CALCIUM CARBONATE 500 MG CHEW TAB PO ×2 (09:21→20:41)
[2018-02-07] MEDS: BUPROPION 100 MG TAB PO (09:21)
[2018-02-07] MEDS: METOPROLOL 25 MG TAB PO ×2 (09:22→20:44)
[2018-02-07] MEDS: AMLODIPINE 5 MG TAB PO (09:23)
[2018-02-07] MEDS: MEROPENEM 500MG/50 ML (PMX) 50 ML IVPB ×2 (09:32→20:41)
[2018-02-07] MEDS: GENTAMICIN 0.1% 15 GM OINT TOP ×3 (13:00→20:48)
[2018-02-07] MEDS: SODIUM HYPOCHLORITE 1/40% 1L IRRIG IRR ×2 (13:00→20:48)
[2018-02-07] MEDS: NYSTATIN 15 GM POWDER BTL TOP ×2 (15:40→20:49)
[2018-02-07] MEDS: TAMSULOSIN (SR) 0.4 MG CAP PO (20:42)
[2018-02-08 06:12] LABS: ADD MAN DIFF? NO
[2018-02-08 06:18] LABS: WHITE BLOOD COUNT 11.5 10^3/ul (4.8-10.8)
[2018-02-08 06:18] LABS: BASOPHILS % 0.3 % (0.0-2.0); EOSINOPHILS # 0.1 10^3/ul (0.0-0.5); EOSINOPHILS % 1.2 % (0.0-7.0); HEMATOCRIT 25.9 % (42.0-52.0); HEMOGLOBIN 8.1 g/dl (14.0-18.0); LYMPHOCYTES # 1.9 10^3/ul (0.8-2.9); LYMPHOCYTES % 16.2 % (15.0-51.0); MEAN CORPUSCULAR HEMOGLOBIN 29.6 pg (29.0-33.0); MEAN CORPUSCULAR HGB CONC 31.3 g/dl (32.0-37.0); MEAN CORPUSCULAR VOLUME 94.5 fl (82.0-101.0); MEAN PLATELET VOLUME 9.6 fl (7.4-10.4); MONOCYTE # 0.9 10^3/ul (0.3-0.9); MONOCYTES % 8.1 % (0.0-11.0); NEUTROPHIL # 8.5 10^3/ul (1.6-7.5); NEUTROPHILS % 73.7 % (39.0-77.0); PLATELET COUNT 224 10^3/UL (140-415); RED BLOOD COUNT 2.74 10^6/ul (4.70-6.10); RED CELL DISTRIBUTION WIDTH 14.8 % (11.5-14.5)
[2018-02-08 06:39] LABS: ANION GAP 12 (8-16); BLOOD UREA NITROGEN 37 mg/dl (7-20); CALCIUM 8.3 mg/dl (8.4-10.2); CARBON DIOXIDE 27 mmol/L (21-31); CHLORIDE 109 mmol/L (97-110); CREATININE 1.45 mg/dl (0.61-1.24); GLUCOSE 82 mg/dl (70-220); POTASSIUM 3.9 mmol/L (3.5-5.1); SODIUM 144 mmol/L (135-144)
[2018-02-08 06:58] LABS: MAGNESIUM 1.8 mg/dl (1.7-2.5)
[2018-02-08 06:58] LABS: PHOSPHORUS 3.8 mg/dl (2.5-4.9)
[2018-02-08] MEDS: METOPROLOL 25 MG TAB PO ×2 (09:11→21:03)
[2018-02-08] MEDS: MEROPENEM 500MG/50 ML (PMX) 50 ML IVPB ×2 (09:11→21:04)
[2018-02-08] MEDS: DOXYCYCLINE 100 MG TAB PO ×2 (09:11→21:02)
[2018-02-08] MEDS: FLUCONAZOLE 100 MG TAB PO (09:11)
[2018-02-08] MEDS: CALCIUM CARBONATE 500 MG CHEW TAB PO ×2 (09:12→21:02)
[2018-02-08] MEDS: AMLODIPINE 5 MG TAB PO (09:12)
[2018-02-08] MEDS: BUPROPION 100 MG TAB PO (09:12)
[2018-02-08] MEDS: GENTAMICIN 0.1% 15 GM OINT TOP ×3 (09:13→21:08)
[2018-02-08] MEDS: NYSTATIN 15 GM POWDER BTL TOP ×2 (09:13→21:00)
[2018-02-08] MEDS: SODIUM HYPOCHLORITE 1/40% 1L IRRIG IRR ×2 (09:14→21:08)
[2018-02-08] MEDS: COLLAGENASE 30 GM TUBE TOP (09:15)
[2018-02-08] MEDS: NYSTATIN SUSP 5 ML CUP PO ×2 (09:20→12:24)
[2018-02-08] MEDS: morphine LIQ (10 MG/5 ML) CUP PO ×3 (12:24→21:04)
[2018-02-08] MEDS: TAMSULOSIN (SR) 0.4 MG CAP PO (21:03)
[2018-02-09] MEDS: morphine LIQ (10 MG/5 ML) CUP PO ×3 (05:59→20:32)
[2018-02-09 06:11] LABS: ADD MAN DIFF? NO
[2018-02-09 06:14] LABS: BASOPHIL # 0.1 10^3/ul (0.0-0.1); BASOPHILS % 0.4 % (0.0-2.0); EOSINOPHILS # 0.2 10^3/ul (0.0-0.5); EOSINOPHILS % 1.3 % (0.0-7.0); HEMATOCRIT 27.5 % (42.0-52.0); HEMOGLOBIN 8.9 g/dl (14.0-18.0); LYMPHOCYTES % 14.6 % (15.0-51.0); MEAN CORPUSCULAR HGB CONC 32.4 g/dl (32.0-37.0); MEAN CORPUSCULAR VOLUME 92.6 fl (82.0-101.0); MEAN PLATELET VOLUME 9.5 fl (7.4-10.4); MONOCYTE # 0.9 10^3/ul (0.3-0.9); MONOCYTES % 6.7 % (0.0-11.0); NEUTROPHIL # 10.4 10^3/ul (1.6-7.5); NEUTROPHILS % 76.6 % (39.0-77.0); PLATELET COUNT 222 10^3/UL (140-415); RED BLOOD COUNT 2.97 10^6/ul (4.70-6.10); RED CELL DISTRIBUTION WIDTH 14.7 % (11.5-14.5)
[2018-02-09 06:14] LABS: WHITE BLOOD COUNT 13.5 10^3/ul (4.8-10.8)
[2018-02-09 06:29] LABS: ANION GAP 13 (8-16); BLOOD UREA NITROGEN 35 mg/dl (7-20); CALCIUM 8.6 mg/dl (8.4-10.2); CARBON DIOXIDE 25 mmol/L (21-31); CHLORIDE 107 mmol/L (97-110); CREATININE 1.44 mg/dl (0.61-1.24); GLUCOSE 89 mg/dl (70-220); POTASSIUM 4.3 mmol/L (3.5-5.1); SODIUM 141 mmol/L (135-144)
[2018-02-09] MEDS: METOPROLOL 25 MG TAB PO ×2 (08:37→20:26)
[2018-02-09] MEDS: DOXYCYCLINE 100 MG TAB PO ×2 (08:38→20:23)
[2018-02-09] MEDS: MEROPENEM 500MG/50 ML (PMX) 50 ML IVPB (08:38)
[2018-02-09] MEDS: CALCIUM CARBONATE 500 MG CHEW TAB PO ×2 (08:38→20:24)
[2018-02-09] MEDS: FLUCONAZOLE 100 MG TAB PO (08:38)
[2018-02-09] MEDS: BUPROPION 100 MG TAB PO (08:38)
[2018-02-09] MEDS: AMLODIPINE 5 MG TAB PO (08:38)
[2018-02-09] MEDS: SODIUM HYPOCHLORITE 1/40% 1L IRRIG IRR ×2 (08:39→20:27)
[2018-02-09] MEDS: COLLAGENASE 30 GM TUBE TOP (08:39)
[2018-02-09] MEDS: GENTAMICIN 0.1% 15 GM OINT TOP ×3 (08:39→20:23)
[2018-02-09] MEDS: NYSTATIN 15 GM POWDER BTL TOP ×2 (08:39→20:28)
[2018-02-09] MEDS: TAMSULOSIN (SR) 0.4 MG CAP PO (20:24)
[2018-02-10] MEDS: morphine LIQ (10 MG/5 ML) CUP PO ×4 (00:32→21:06)
[2018-02-10] MEDS: METOPROLOL 25 MG TAB PO ×2 (09:00→21:09)
[2018-02-10] MEDS: COLLAGENASE 30 GM TUBE TOP (09:00)
[2018-02-10] MEDS: CALCIUM CARBONATE 500 MG CHEW TAB PO ×2 (09:07→21:05)
[2018-02-10] MEDS: DOXYCYCLINE 100 MG TAB PO ×2 (09:07→21:05)
[2018-02-10] MEDS: BUPROPION 100 MG TAB PO (09:07)
[2018-02-10] MEDS: SODIUM HYPOCHLORITE 1/40% 1L IRRIG IRR ×2 (09:07→21:11)
[2018-02-10] MEDS: GENTAMICIN 0.1% 15 GM OINT TOP ×3 (09:09→21:11)
[2018-02-10] MEDS: AMLODIPINE 5 MG TAB PO (09:10)
[2018-02-10] MEDS: NYSTATIN 15 GM POWDER BTL TOP ×2 (09:11→21:11)
[2018-02-10] MEDS: TAMSULOSIN (SR) 0.4 MG CAP PO (21:05)
[2018-02-11] MEDS: morphine LIQ (10 MG/5 ML) CUP PO ×3 (02:20→19:02)
[2018-02-11 06:58] LABS: ADD MAN DIFF? NO
[2018-02-11 07:05] LABS: WHITE BLOOD COUNT 8.9 10^3/ul (4.8-10.8)
[2018-02-11 07:05] LABS: BASOPHILS % 0.3 % (0.0-2.0); EOSINOPHILS # 0.2 10^3/ul (0.0-0.5); HEMOGLOBIN 8.4 g/dl (14.0-18.0); LYMPHOCYTES # 1.7 10^3/ul (0.8-2.9); LYMPHOCYTES % 19.6 % (15.0-51.0); MEAN CORPUSCULAR HEMOGLOBIN 30.1 pg (29.0-33.0); MEAN CORPUSCULAR HGB CONC 32.3 g/dl (32.0-37.0); MEAN CORPUSCULAR VOLUME 93.2 fl (82.0-101.0); MEAN PLATELET VOLUME 9.6 fl (7.4-10.4); MONOCYTE # 0.8 10^3/ul (0.3-0.9); MONOCYTES % 9.5 % (0.0-11.0); PLATELET COUNT 195 10^3/UL (140-415); RED BLOOD COUNT 2.79 10^6/ul (4.70-6.10); RED CELL DISTRIBUTION WIDTH 14.5 % (11.5-14.5)
[2018-02-11 07:31] LABS: ANION GAP 15 (8-16); BLOOD UREA NITROGEN 40 mg/dl (7-20); CALCIUM 8.2 mg/dl (8.4-10.2); CARBON DIOXIDE 23 mmol/L (21-31); CHLORIDE 108 mmol/L (97-110); CREATININE 1.86 mg/dl (0.61-1.24); GLUCOSE 101 mg/dl (70-220); POTASSIUM 4.5 mmol/L (3.5-5.1); SODIUM 141 mmol/L (135-144)
[2018-02-11 07:33] LABS: MAGNESIUM 1.7 mg/dl (1.7-2.5)
[2018-02-11 07:33] LABS: PHOSPHORUS 3.9 mg/dl (2.5-4.9)
[2018-02-11] MEDS: COLLAGENASE 30 GM TUBE TOP (09:00)
[2018-02-11] MEDS: SODIUM HYPOCHLORITE 1/40% 1L IRRIG IRR ×2 (09:00→22:11)
[2018-02-11] MEDS: CALCIUM CARBONATE 500 MG CHEW TAB PO ×2 (09:39→22:06)
[2018-02-11] MEDS: DOXYCYCLINE 100 MG TAB PO ×2 (09:39→22:06)
[2018-02-11] MEDS: BUPROPION 100 MG TAB PO (09:40)
[2018-02-11] MEDS: METOPROLOL 25 MG TAB PO ×2 (09:40→22:07)
[2018-02-11] MEDS: NYSTATIN 15 GM POWDER BTL TOP ×2 (09:41→22:08)
[2018-02-11] MEDS: LEVOFLOXACIN 250 MG TAB PO (19:03)
[2018-02-11] MEDS: TAMSULOSIN (SR) 0.4 MG CAP PO (22:06)
[2018-02-12] MEDS: morphine LIQ (10 MG/5 ML) CUP PO ×2 (05:54→22:23)
[2018-02-12] MEDS: CALCIUM CARBONATE 500 MG CHEW TAB PO ×2 (08:08→22:23)
[2018-02-12] MEDS: BUPROPION 100 MG TAB PO (08:08)
[2018-02-12] MEDS: NYSTATIN 15 GM POWDER BTL TOP ×2 (08:08→22:23)
[2018-02-12] MEDS: DOXYCYCLINE 100 MG TAB PO ×2 (08:08→22:21)
[2018-02-12] MEDS: COLLAGENASE 30 GM TUBE TOP (08:09)
[2018-02-12] MEDS: SODIUM HYPOCHLORITE 1/40% 1L IRRIG IRR ×3 (08:09→23:50)
[2018-02-12] MEDS: METOPROLOL 25 MG TAB PO ×2 (08:10→22:22)
[2018-02-12] MEDS: TAMSULOSIN (SR) 0.4 MG CAP PO (22:21)
[2018-02-13] MEDS: morphine LIQ (10 MG/5 ML) CUP PO ×4 (04:32→21:02)
[2018-02-13 06:15] LABS: ADD MAN DIFF? NO
[2018-02-13 06:20] LABS: WHITE BLOOD COUNT 7.3 10^3/ul (4.8-10.8)
[2018-02-13 06:20] LABS: BASOPHILS % 0.5 % (0.0-2.0); EOSINOPHILS # 0.2 10^3/ul (0.0-0.5); EOSINOPHILS % 2.5 % (0.0-7.0); HEMATOCRIT 24.6 % (42.0-52.0); HEMOGLOBIN 7.8 g/dl (14.0-18.0); LYMPHOCYTES # 1.7 10^3/ul (0.8-2.9); LYMPHOCYTES % 22.6 % (15.0-51.0); MEAN CORPUSCULAR HEMOGLOBIN 29.8 pg (29.0-33.0); MEAN CORPUSCULAR HGB CONC 31.7 g/dl (32.0-37.0); MEAN CORPUSCULAR VOLUME 93.9 fl (82.0-101.0); MEAN PLATELET VOLUME 9.5 fl (7.4-10.4); MONOCYTE # 0.8 10^3/ul (0.3-0.9); NEUTROPHIL # 4.6 10^3/ul (1.6-7.5); PLATELET COUNT 216 10^3/UL (140-415); RED BLOOD COUNT 2.62 10^6/ul (4.70-6.10); RED CELL DISTRIBUTION WIDTH 14.6 % (11.5-14.5)
[2018-02-13 06:35] LABS: ANION GAP 14 (8-16); BLOOD UREA NITROGEN 37 mg/dl (7-20); CALCIUM 8.2 mg/dl (8.4-10.2); CARBON DIOXIDE 25 mmol/L (21-31); CHLORIDE 108 mmol/L (97-110); CREATININE 1.42 mg/dl (0.61-1.24); GLUCOSE 100 mg/dl (70-220); POTASSIUM 4.8 mmol/L (3.5-5.1); SODIUM 142 mmol/L (135-144)
[2018-02-13] MEDS: DOXYCYCLINE 100 MG TAB PO ×2 (09:30→21:02)
[2018-02-13] MEDS: NYSTATIN 15 GM POWDER BTL TOP ×2 (09:30→21:03)
[2018-02-13] MEDS: CALCIUM CARBONATE 500 MG CHEW TAB PO ×2 (09:30→21:02)
[2018-02-13] MEDS: BUPROPION 100 MG TAB PO (09:30)
[2018-02-13] MEDS: METOPROLOL 25 MG TAB PO ×2 (09:33→21:02)
[2018-02-13] MEDS: SODIUM HYPOCHLORITE 1/40% 1L IRRIG IRR ×2 (09:33→21:03)
[2018-02-13] MEDS: COLLAGENASE 30 GM TUBE TOP (09:34)
[2018-02-13] MEDS: LEVOFLOXACIN 250 MG TAB PO (12:53)
[2018-02-13] MEDS: CHOLECALCIFEROL 2,000 UNIT CAP PO (16:19)
[2018-02-13] MEDS: SOD FERRIC GLUC COMPLX 125 MG in SOD CHLORIDE 0.9% 100 ML IVPB (17:50)
[2018-02-13] MEDS: TAMSULOSIN (SR) 0.4 MG CAP PO (21:02)
[2018-02-14] MEDS: DOXYCYCLINE 100 MG TAB PO ×2 (08:34→21:22)
[2018-02-14] MEDS: BUPROPION 100 MG TAB PO (08:34)
[2018-02-14] MEDS: CALCIUM CARBONATE 500 MG CHEW TAB PO ×2 (08:34→21:22)
[2018-02-14] MEDS: CHOLECALCIFEROL 2,000 UNIT CAP PO (08:34)
[2018-02-14] MEDS: SODIUM HYPOCHLORITE 1/40% 1L IRRIG IRR ×2 (08:35→21:29)
[2018-02-14] MEDS: NYSTATIN 15 GM POWDER BTL TOP ×2 (08:35→21:29)
[2018-02-14] MEDS: METOPROLOL 25 MG TAB PO ×2 (08:35→21:22)
[2018-02-14] MEDS: COLLAGENASE 30 GM TUBE TOP (08:36)
[2018-02-14] MEDS: morphine LIQ (10 MG/5 ML) CUP PO ×2 (13:25→21:23)
[2018-02-14] MEDS: SOD FERRIC GLUC COMPLX 125 MG in SOD CHLORIDE 0.9% 100 ML IVPB (16:32)
[2018-02-14] MEDS: TAMSULOSIN (SR) 0.4 MG CAP PO (21:22)
[2018-02-15] MEDS: morphine LIQ (10 MG/5 ML) CUP PO ×4 (02:35→21:11)
[2018-02-15] MEDS: NYSTATIN 15 GM POWDER BTL TOP ×2 (09:00→21:00)
[2018-02-15] MEDS: COLLAGENASE 30 GM TUBE TOP (09:00)
[2018-02-15] MEDS: CHOLECALCIFEROL 2,000 UNIT CAP PO (09:37)
[2018-02-15] MEDS: DOXYCYCLINE 100 MG TAB PO ×2 (09:38→21:10)
[2018-02-15] MEDS: METOPROLOL 25 MG TAB PO ×2 (09:38→21:09)
[2018-02-15] MEDS: BUPROPION 100 MG TAB PO (09:39)
[2018-02-15] MEDS: CALCIUM CARBONATE 500 MG CHEW TAB PO ×2 (09:39→21:10)
[2018-02-15] MEDS: SODIUM HYPOCHLORITE 1/40% 1L IRRIG IRR (10:07)
[2018-02-15] MEDS: LEVOFLOXACIN 250 MG TAB PO (12:47)
[2018-02-15] MEDS: SOD FERRIC GLUC COMPLX 125 MG in SOD CHLORIDE 0.9% 100 ML IVPB (18:03)
[2018-02-15] MEDS: TAMSULOSIN (SR) 0.4 MG CAP PO (21:10)
[2018-02-16] MEDS: morphine LIQ (10 MG/5 ML) CUP PO ×4 (01:18→22:27)
[2018-02-16] MEDS: SODIUM HYPOCHLORITE 1/40% 1L IRRIG IRR ×3 (05:03→18:00)
[2018-02-16 06:47] LABS: ALANINE AMINOTRANSFERASE 54 IU/L (13-69); ALBUMIN 2.7 g/dl (3.3-4.9); ALBUMIN/GLOBULIN RATIO 0.84; ALKALINE PHOSPHATASE 69 IU/L (42-121); ANION GAP 14 (8-16); ASPARTATE AMINO TRANSFERASE 44 IU/L (15-46); BLOOD UREA NITROGEN 28 mg/dl (7-20); CALCIUM 8.7 mg/dl (8.4-10.2); CARBON DIOXIDE 26 mmol/L (21-31); CHLORIDE 107 mmol/L (97-110); GLUCOSE 101 mg/dl (70-220); POTASSIUM 5.1 mmol/L (3.5-5.1); SODIUM 142 mmol/L (135-144); TOTAL PROTEIN 5.9 g/dl (6.1-8.1)
[2018-02-16] MEDS: COLLAGENASE 30 GM TUBE TOP (08:38)
[2018-02-16] MEDS: CHOLECALCIFEROL 2,000 UNIT CAP PO (09:31)
[2018-02-16] MEDS: METOPROLOL 25 MG TAB PO ×2 (09:33→22:29)
[2018-02-16] MEDS: DOXYCYCLINE 100 MG TAB PO ×2 (09:33→22:28)
[2018-02-16] MEDS: CALCIUM CARBONATE 500 MG CHEW TAB PO ×2 (09:33→22:32)
[2018-02-16] MEDS: BUPROPION 100 MG TAB PO (09:33)
[2018-02-16] MEDS: NYSTATIN 15 GM POWDER BTL TOP ×2 (09:34→22:33)
[2018-02-16] MEDS: TAMSULOSIN (SR) 0.4 MG CAP PO (22:28)
[2018-02-17] MEDS: morphine LIQ (10 MG/5 ML) CUP PO ×3 (06:49→18:32)
[2018-02-17] MEDS: COLLAGENASE 30 GM TUBE TOP (09:00)
[2018-02-17] MEDS: NYSTATIN 15 GM POWDER BTL TOP ×2 (09:00→21:00)
[2018-02-17] MEDS: CHOLECALCIFEROL 2,000 UNIT CAP PO (09:47)
[2018-02-17] MEDS: CALCIUM CARBONATE 500 MG CHEW TAB PO ×2 (09:47→21:22)
[2018-02-17] MEDS: BUPROPION 100 MG TAB PO (09:47)
[2018-02-17] MEDS: DOXYCYCLINE 100 MG TAB PO ×2 (09:47→21:22)
[2018-02-17] MEDS: METOPROLOL 25 MG TAB PO ×2 (09:48→21:00)
[2018-02-17] MEDS: SODIUM HYPOCHLORITE 1/40% 1L IRRIG IRR ×2 (09:49→21:00)
[2018-02-17] MEDS: LEVOFLOXACIN 250 MG TAB PO (12:23)
[2018-02-17] MEDS: TAMSULOSIN (SR) 0.4 MG CAP PO (21:22)
[2018-02-18] MEDS: morphine LIQ (10 MG/5 ML) CUP PO ×4 (01:11→20:49)
[2018-02-18] MEDS: SODIUM HYPOCHLORITE 1/40% 1L IRRIG IRR ×3 (04:54→20:51)
[2018-02-18] MEDS: NYSTATIN 15 GM POWDER BTL TOP ×2 (09:00→21:00)
[2018-02-18] MEDS: COLLAGENASE 30 GM TUBE TOP (09:00)
[2018-02-18] MEDS: CALCIUM CARBONATE 500 MG CHEW TAB PO ×2 (09:01→20:47)
[2018-02-18] MEDS: DOXYCYCLINE 100 MG TAB PO ×2 (09:01→20:47)
[2018-02-18] MEDS: CHOLECALCIFEROL 2,000 UNIT CAP PO (09:02)
[2018-02-18] MEDS: BUPROPION 100 MG TAB PO (09:02)
[2018-02-18] MEDS: METOPROLOL 25 MG TAB PO ×2 (09:02→20:49)
[2018-02-18] MEDS: TAMSULOSIN (SR) 0.4 MG CAP PO (20:48)
[2018-02-19] MEDS: morphine LIQ (10 MG/5 ML) CUP PO ×4 (00:53→19:26)
[2018-02-19 06:15] LABS: ADD MAN DIFF? NO
[2018-02-19 06:19] LABS: BASOPHIL # 0.1 10^3/ul (0.0-0.1); BASOPHILS % 0.6 % (0.0-2.0); EOSINOPHILS # 0.4 10^3/ul (0.0-0.5); EOSINOPHILS % 4.8 % (0.0-7.0); HEMATOCRIT 28.3 % (42.0-52.0); LYMPHOCYTES # 1.7 10^3/ul (0.8-2.9); LYMPHOCYTES % 20.8 % (15.0-51.0); MEAN CORPUSCULAR HEMOGLOBIN 29.7 pg (29.0-33.0); MEAN CORPUSCULAR HGB CONC 31.8 g/dl (32.0-37.0); MEAN CORPUSCULAR VOLUME 93.4 fl (82.0-101.0); MEAN PLATELET VOLUME 8.9 fl (7.4-10.4); MONOCYTE # 0.9 10^3/ul (0.3-0.9); MONOCYTES % 11.2 % (0.0-11.0); NEUTROPHIL # 5.2 10^3/ul (1.6-7.5); PLATELET COUNT 367 10^3/UL (140-415); RED BLOOD COUNT 3.03 10^6/ul (4.70-6.10); RED CELL DISTRIBUTION WIDTH 14.2 % (11.5-14.5)
[2018-02-19 06:19] LABS: WHITE BLOOD COUNT 8.3 10^3/ul (4.8-10.8)
[2018-02-19 06:49] LABS: ANION GAP 17 (8-16); BLOOD UREA NITROGEN 30 mg/dl (7-20); CALCIUM 8.9 mg/dl (8.4-10.2); CARBON DIOXIDE 27 mmol/L (21-31); CHLORIDE 104 mmol/L (97-110); CREATININE 1.43 mg/dl (0.61-1.24); GLUCOSE 124 mg/dl (70-220); POTASSIUM 4.5 mmol/L (3.5-5.1); SODIUM 143 mmol/L (135-144)
[2018-02-19] MEDS: DOXYCYCLINE 100 MG TAB PO ×2 (08:38→20:20)
[2018-02-19] MEDS: BUPROPION 100 MG TAB PO (08:38)
[2018-02-19] MEDS: CALCIUM CARBONATE 500 MG CHEW TAB PO ×2 (08:38→20:19)
[2018-02-19] MEDS: CHOLECALCIFEROL 2,000 UNIT CAP PO (08:39)
[2018-02-19] MEDS: METOPROLOL 25 MG TAB PO (08:40)
[2018-02-19] MEDS: NYSTATIN 15 GM POWDER BTL TOP ×2 (09:47→20:21)
[2018-02-19] MEDS: COLLAGENASE 30 GM TUBE TOP (09:47)
[2018-02-19] MEDS: SODIUM HYPOCHLORITE 1/40% 1L IRRIG IRR ×2 (09:47→20:21)
[2018-02-19 11:12] LABS: PHOSPHORUS 4.4 mg/dl (2.5-4.9)
[2018-02-19 11:12] LABS: MAGNESIUM 1.7 mg/dl (1.7-2.5)
[2018-02-19] MEDS: LEVOFLOXACIN 250 MG TAB PO (11:53)
[2018-02-19] MEDS: TAMSULOSIN (SR) 0.4 MG CAP PO (20:19)
[2018-02-20] MEDS: morphine LIQ (10 MG/5 ML) CUP PO ×4 (05:17→20:31)
[2018-02-20] MEDS: NYSTATIN 15 GM POWDER BTL TOP (09:04)
[2018-02-20] MEDS: SODIUM HYPOCHLORITE 1/40% 1L IRRIG IRR ×2 (09:04→21:00)
[2018-02-20] MEDS: COLLAGENASE 30 GM TUBE TOP (09:04)
[2018-02-20] MEDS: DOXYCYCLINE 100 MG TAB PO ×2 (09:04→20:30)
[2018-02-20] MEDS: BUPROPION 100 MG TAB PO (09:04)
[2018-02-20] MEDS: CHOLECALCIFEROL 2,000 UNIT CAP PO (09:04)
[2018-02-20] MEDS: CALCIUM CARBONATE 500 MG CHEW TAB PO ×2 (09:04→20:30)
[2018-02-20] MEDS: TAMSULOSIN (SR) 0.4 MG CAP PO (20:30)
[2018-02-21] MEDS: morphine LIQ (10 MG/5 ML) CUP PO ×4 (00:49→18:43)
[2018-02-21] MEDS: PANTOPRAZOLE (EC) 40 MG TAB PO (07:24)
[2018-02-21] MEDS: BUPROPION 100 MG TAB PO (08:26)
[2018-02-21] MEDS: DOXYCYCLINE 100 MG TAB PO ×2 (08:26→20:25)
[2018-02-21] MEDS: CHOLECALCIFEROL 2,000 UNIT CAP PO (08:26)
[2018-02-21] MEDS: CALCIUM CARBONATE 500 MG CHEW TAB PO ×2 (08:26→20:25)
[2018-02-21] MEDS: SODIUM HYPOCHLORITE 1/40% 1L IRRIG IRR ×2 (08:27→21:00)
[2018-02-21] MEDS: LEVOFLOXACIN 250 MG TAB PO (11:52)
[2018-02-21] MEDS: TAMSULOSIN (SR) 0.4 MG CAP PO (20:25)
[2018-02-22] MEDS: morphine LIQ (10 MG/5 ML) CUP PO ×4 (00:50→20:56)
[2018-02-22] MEDS: PANTOPRAZOLE (EC) 40 MG TAB PO (04:51)
[2018-02-22] MEDS: SODIUM HYPOCHLORITE 1/40% 1L IRRIG IRR ×3 (04:54→20:58)
[2018-02-22] MEDS: CALCIUM CARBONATE 500 MG CHEW TAB PO ×2 (09:53→20:55)
[2018-02-22] MEDS: CHOLECALCIFEROL 2,000 UNIT CAP PO (09:53)
[2018-02-22] MEDS: DOXYCYCLINE 100 MG TAB PO ×2 (09:53→20:55)
[2018-02-22] MEDS: BUPROPION 100 MG TAB PO (09:53)
[2018-02-22] MEDS: TAMSULOSIN (SR) 0.4 MG CAP PO (20:55)
[2018-02-23] MEDS: morphine LIQ (10 MG/5 ML) CUP PO ×4 (05:11→20:54)
[2018-02-23] MEDS: PANTOPRAZOLE (EC) 40 MG TAB PO (06:03)
[2018-02-23] MEDS: DOXYCYCLINE 100 MG TAB PO (08:54)
[2018-02-23] MEDS: BUPROPION 100 MG TAB PO (08:54)
[2018-02-23] MEDS: CALCIUM CARBONATE 500 MG CHEW TAB PO ×2 (08:54→20:53)
[2018-02-23] MEDS: CHOLECALCIFEROL 2,000 UNIT CAP PO (08:54)
[2018-02-23] MEDS: SODIUM HYPOCHLORITE 1/40% 1L IRRIG IRR ×2 (08:56→20:51)
[2018-02-23] MEDS: LEVOFLOXACIN 250 MG TAB PO (12:23)
[2018-02-23] MEDS: TAMSULOSIN (SR) 0.4 MG CAP PO (20:51)
[2018-02-24] MEDS: morphine LIQ (10 MG/5 ML) CUP PO ×4 (02:14→20:36)
[2018-02-24 05:36] LABS: ADD MAN DIFF? NO
[2018-02-24 05:42] LABS: WHITE BLOOD COUNT 8.2 10^3/ul (4.8-10.8)
[2018-02-24 05:42] LABS: BASOPHILS % 0.4 % (0.0-2.0); EOSINOPHILS # 0.5 10^3/ul (0.0-0.5); EOSINOPHILS % 5.6 % (0.0-7.0); HEMATOCRIT 27.1 % (42.0-52.0); HEMOGLOBIN 8.6 g/dl (14.0-18.0); LYMPHOCYTES % 24.9 % (15.0-51.0); MEAN CORPUSCULAR HEMOGLOBIN 29.6 pg (29.0-33.0); MEAN CORPUSCULAR HGB CONC 31.7 g/dl (32.0-37.0); MEAN CORPUSCULAR VOLUME 93.1 fl (82.0-101.0); MEAN PLATELET VOLUME 8.8 fl (7.4-10.4); MONOCYTES % 11.6 % (0.0-11.0); NEUTROPHIL # 4.6 10^3/ul (1.6-7.5); NEUTROPHILS % 56.5 % (39.0-77.0); PLATELET COUNT 345 10^3/UL (140-415); RED BLOOD COUNT 2.91 10^6/ul (4.70-6.10)
[2018-02-24] MEDS: PANTOPRAZOLE (EC) 40 MG TAB PO (06:03)
[2018-02-24 06:23] LABS: ANION GAP 15 (8-16); BLOOD UREA NITROGEN 31 mg/dl (7-20); CALCIUM 8.7 mg/dl (8.4-10.2); CARBON DIOXIDE 27 mmol/L (21-31); CHLORIDE 102 mmol/L (97-110); CREATININE 1.73 mg/dl (0.61-1.24); GLUCOSE 86 mg/dl (70-220); POTASSIUM 4.8 mmol/L (3.5-5.1); SODIUM 139 mmol/L (135-144)
[2018-02-24 07:08] LABS: PHOSPHORUS 4.5 mg/dl (2.5-4.9)
[2018-02-24 07:08] LABS: MAGNESIUM 1.7 mg/dl (1.7-2.5)
[2018-02-24] MEDS: CALCIUM CARBONATE 500 MG CHEW TAB PO ×2 (08:52→20:35)
[2018-02-24] MEDS: CHOLECALCIFEROL 2,000 UNIT CAP PO (08:53)
[2018-02-24] MEDS: BUPROPION 100 MG TAB PO (08:53)
[2018-02-24] MEDS: SODIUM HYPOCHLORITE 1/40% 1L IRRIG IRR ×2 (09:00→20:37)
[2018-02-24] MEDS: TAMSULOSIN (SR) 0.4 MG CAP PO (20:35)
[2018-02-25] MEDS: morphine LIQ (10 MG/5 ML) CUP PO ×5 (00:28→19:57)
[2018-02-25] MEDS: SODIUM HYPOCHLORITE 1/40% 1L IRRIG IRR ×2 (04:57→18:12)
[2018-02-25] MEDS: PANTOPRAZOLE (EC) 40 MG TAB PO (05:00)
[2018-02-25] MEDS: CHOLECALCIFEROL 2,000 UNIT CAP PO (08:34)
[2018-02-25] MEDS: BUPROPION 100 MG TAB PO (08:34)
[2018-02-25] MEDS: CALCIUM CARBONATE 500 MG CHEW TAB PO (08:34)
[2018-02-25] MEDS: CYCLOBENZAPRINE 10 MG TAB PO ×2 (13:54→20:21)
== END 2018-02-25 20:55 | DRG 853 ==
LOC: TEL 01-13 06:00 → MS2 01-16 03:25 → MS4 01-20 15:50 → MS2 02-11 22:55 → E/R 12:33 → MS2 01-29 17:37 → PP2 16:45
PROC: 02HV33Z Insertion of Infusion Device into Superior Vena Cava, Percutaneous Approach (ICD-10-PCS; 2018-01-13)
PROC: 0JBP0ZZ Excision of Left Lower Leg Subcutaneous Tissue and Fascia, Open Approach (ICD-10-PCS; principal; 2018-01-14)
DX: A41.9 Sepsis, unspecified organism (principal); N17.0 Acute kidney failure with tubular necrosis; T86.822 Skin graft (allograft) (autograft) infection; L03.116 Cellulitis of left lower limb; B37.49 Other urogenital candidiasis; I96 Gangrene, not elsewhere classified; F33.9 Major depressive disorder, recurrent, unspecified; E66.9 Obesity, unspecified; Z68.32 Body mass index [BMI] 32.0-32.9, adult; E87.5 Hyperkalemia; Z59.0 Homelessness; Z72.0 Tobacco use; F19.21 Other psychoactive substance dependence, in remission; B19.20 Unspecified viral hepatitis C without hepatic coma; D64.9 Anemia, unspecified; D47.3 Essential (hemorrhagic) thrombocythemia; B96.5 Pseudomonas (aeruginosa) (mallei) (pseudomallei) as the cause of diseases classified elsewhere; B95.62 Methicillin resistant Staphylococcus aureus infection as the cause of diseases classified elsewhere; E83.39 Other disorders of phosphorus metabolism; M79.89 Other specified soft tissue disorders; R12 Heartburn; E87.6 Hypokalemia
CPT/HCPCS: 36415; 36569; 36600; 71045; 73590; 73630-LT; 76775; 76937; 80048; 80053; 80202; 81001; 82043; 82550; 82565; 82595; 82803; 82962; 83605; 83735; 84100; 84484; 84520; 85025; 85610; 85730; 86140; 86160; 87040; 87045; 87070; 87081; 87086; 89190; 93005; 93971; 96365; 96366; 96375; 97110; 97116; 97164; 97530; 99291-25